=== PATIENT | female | born 1965 | race Caucasian/White ===

== ENCOUNTER 2018-05-19 14:42 | Inpatient (IN) | payer MEDICARE, MEDICAID, SELFPAY ==
[2018-04-27 10:30] VITALS: BMI 38.0
[2018-05-18] VITALS (15 sets, daily range): BP systolic 101–140; BP diastolic 51–82; PULSE 70–97; RESP 7–92; TEMP 35.7–37.4; O2SAT 12–98; BMI 38.0
[2018-05-18] MEDS: LACTATED RINGERS 1,000 ML 42 ML IV ×2 (11:56→16:12)
[2018-05-18] MEDS: ACETAMINOPHEN 325 MG TABLET 975 MG PO ×2 (12:15→22:46)
[2018-05-18] MEDS: PREGABALIN 75 MG CAPSULE PO (12:15)
[2018-05-18] MEDS: CELECOXIB 200 MG CAPSULE PO (12:15)
--- NOTE | 2018-05-18 12:30 | SUR.PREOP ---
Pt. has as Foundry Technician ([facility]) ELMIRA MENDEZ, [facility] [phone]
--- NOTE | 2018-05-18 13:00 | DI.RAD.S_ITS ---
PROCEDURE: XR KNEE LT 1TO2V INDICATIONS: LEFT REVISION KNEE TECHNIQUE: 4 views of the knee acquired. COMPARISON: [facility], CT, CT KNEE LEFT WITHOUT CONTRAST, 04/19/2018, 9:53. [facility], CR, XR KNEE ARTHRITIC SERIES LT, 04/05/2018, 8:56. FINDINGS: Bones: Patient is status post knee joint arthroplasty revision with new long stem femoral and tibial components. Hardware components are in expected positions. There are healing fractures of the medial femoral condyle and proximal medial tibia. Soft tissues: Overlying postoperative changes are noted. IMPRESSION: 1. Postsurgical changes status post left knee arthroplasty revision. 2. Healing fractures of the medial distal femur and proximal tibia Dictated by: Mario King M.D. on 05/18/2018 at 23:42 Approved by: Mario King M.D. on 05/18/2018 at 23:44
[2018-05-18] MEDS: VANCOMYCIN 1,000 MG/200 ML FROZ.PIGGY 200 MG IV (14:20)
--- NOTE | 2018-05-18 14:23 | PM.PREOP ---
Pre-operative Note Interval Note Pre-op Check: Yes History & Physical Reviewed by Physician and Yes Exam Performed Changes: No
--- NOTE | 2018-05-18 14:26 | P.OP_ITS ---
Operative Date/Time/Diagnoses Date of procedure: 05/18/18 Time of procedure: 17:47 Pre-op diagnosis: Medial condyle fracture with loosening of femoral component right knee Post-op diagnosis: same Procedure & Clinicians Procedure: Right total knee revision Indications: The patient presents today for revision total knee arthroplasty. Patient sustained a medial condyle fracture which was initially treated conservative. She was doing better and appeared to be healing but now appears to have a loose femoral component. The tibial component appears intact. The plan is to do a revision of the femoral component. The patient does understand complete revision may be necessary. Preoperative studies showed no indication of infection. The nature of the procedure including the risks and benefits, alternatives, postoperative course and expected outcome were discussed and all questions answered. Consent was obtained. Operative site confirmed and marked. Surgeon: Mario Pollock Account Financial Manager: Gabby Lauren Anesthesia Type: General, Spinal and Local Operative Notes Findings: The femoral component was grossly loose. There was almost no bone loss laterally or centrally. There was moderate bone loss medially. The cortical shell of the medial femoral condyle was grossly in place but did have some motion and was not fully healed. There was a little bit of motion of this cortical shell as the knee was placed through flexion extension. There was not really room for any internal fixation of the fragment due to the femoral prosthesis and stem. I felt like with the stem and excellent central and lateral bone that would provide enough fixation. There was no evidence of infection. No evidence of any loosening of the tibial component. Closure Type: primary Specimen(s): other (Femoral component. Cultures.) Implants & Drains: Legion revision system with 5 femoral component with 190 mm stem. 5 mm posterior augment on the lateral side and 15 mm distal augments on the medial side. 13 mm constrained polyethylene tray. Medium Hemovac drain. Applied: drain(s) and implant(s) Estimated Blood Loss (mL): 25 Tourniquet time (min): 125 Procedure in detail: The patient was taken the operative suite and placed under general and spinal anesthesia. She was given 1 g of vancomycin prior to surgery. The leg was prepped and draped in usual sterile fashion. The initial anterior medial incision was utilized. Electrocautery was used through the subcutaneous tissue. A medial parapatellar arthrotomy was made. There is just a slight amount of normal appearing clear yellow fluid within the knee. No evidence of infection. The femoral component was in varus and grossly loose and easily remove. The polyethylene tray was removed. Some of the medial posterior condyle did come off with the femoral component. The lateral and central bone was in excellent condition with no real loss. The bone quality was good. Sequential reaming was carried out to a 14 stem. A 6 degree valgus guide was placed in the distal cut made which was just a cleanup cut laterally and cut with a 15 mm augment on the medial side. The femur was sized to a size 5. The cutting block was placed and it was cut for a 5 mm posterior augment on the lateral side. There was no bone to cut posteriorly on the medial side. The anterior chamber and anterior cut were also made. Trial component was placed. The knee was initially tight medially but a fairly extensive release was performed. The knee came into full extension and had good overall stability in flexion and extension with a 13 mm constrained implant. There was some increase laxity laterally versus medially even after release. The knee was cleansed with Pulsavac irrigation and prepared for cementing. The final implant was cemented into place and held in extension until the cement fully cured. When the knee was then ranged could be seeing that the mom that the medial cortical shell from the previous condylar fracture on did move a few mm on flexion extension. This was really not adding any support to the implant. I did not see any way to really fix the bone as it was quite thin and there is really no where to put screws across the femur with the femoral implant and stem. The final 13 mm constrained implant was placed. The knee was then cleansed with Pulsavac irrigation. The knee was injected with a combination of Marcaine and Exparel' extensor mechanism was closed with interrupted 1. Vicryl sutures. A Hemovac drain was placed deep. Subcutaneous tissue was closed with 2 Vicryl. The skin was closed with deon and surgical adhesive. A large Aquacel dressing and Andrea wrap was applied. The patient tolerated procedure well returned to the recovery room in good condition. Complications: none Condition: stable Disposition: PACU Plan for aftercare: I will have the patient be partial weight-bearing bearing just about 50% weight on the left leg for the 1st 6 weeks after surgery. She will begin aggressive range of motion exercises. Will continue vancomycin until cultures negative.
[2018-05-18] MEDS: CEFAZOLIN 2 GM/100 ML FROZ.PIGGY IV (15:00)
--- NOTE | 2018-05-18 15:28 | SUR.OPER ---
Supine on padded OR bed. Pillow under head, arms secured on padded armboards <90 degree abduction. Safety belt across torso. Non-operative leg secured with tape over blanket over lower leg. Operative leg secured in Jerome positioner. Foam padded brace at thigh of operative leg.
[2018-05-18] MEDS: BUPIVACAINE 0.5% W/ EPI (PF) 20 ML, BUPIVACAINE LIPOSOME 266 MG, SODIUM CHLORIDE 0.9% 8... INJ (15:39)
[2018-05-18] MEDS: POVIDONE-IODINE 15 ML, SODIUM CHLORIDE 0.9% 250 ML TOP (15:40)
[2018-05-18] MEDS: BUPIVACAINE 0.5% W/ EPI (PF) 10 ML, TRANEXAMIC ACID 1,000 MG, SODIUM CHLORIDE 0.9% 20 ML INJ (15:40)
--- NOTE | 2018-05-18 15:49 | SUR.OPER ---
MICROBIOLOGY LAB ORDER: LEFT KNEE JOINT FLUID FOR CULTURE, AEROBIC, ANAEROBIC, GRAM STAIN X2 CULTURE TUBES
--- NOTE | 2018-05-18 18:40 | SUR.PHASEI ---
TOTAL IV FLUIDS 1500ML LR WHILE IN OR AND PACU
[2018-05-18] MEDS: LACTATED RINGERS 1,000 ML 125 ML IV (20:00)
[2018-05-18 20:17] LABS: Estimated Glomerular Filt Rate > 60.0 mL/min (>60)
[2018-05-18] MEDS: MELOXICAM 7.5 MG TABLET PO (22:47)
--- NOTE | 2018-05-18 23:01 | PC.NURSE ---
Evening Shift Note Pt arrived to floor at 1905. Pt very drowsy and responsive to touch and verbal stimuli, reminded to cough and deep breath. RR 11, 93% on 2L NC, pt w/ episodes of apnea and shallow breathing. Pt was put on home CPAP w/ 4L of oxygen bled in. O2 sats 95%, RR 12 on CPAP w/ 4L, currently on 4L NC and 95%. Pt sleepy through most of shift and falling asleep mid sentence. Awoken at 2200 and expressed desire to void, unable to do so and bladder scnaned w/ volume of 815. Pt straight cathed and 800ml produced. Pt requesting pain medication, scheduled Tylenol and meloxican given. Other meds where not given earlier in shift d/t to sedating effects and pt unable to stay wake long enough to safely take oral medications w/o compromising airway. Pt fell asleep during straight cath and after oral medications given. Tolerating sips of water.
[2018-05-19] VITALS (7 sets, daily range): BP systolic 131–161; BP diastolic 71–91; PULSE 69–91; RESP 18–20; TEMP 36.6–36.8; O2SAT 93–96
--- NOTE | 2018-05-19 00:35 | PC.NURSE ---
Pt. still very drowsy, but roused with verbal & tactile stimuli. Denies any pain, 4 liters 95%, refused to wear her CPAP. Will monitor.
[2018-05-19] MEDS: VANCOMYCIN 1,000 MG/200 ML FROZ.PIGGY 200 MG IV ×2 (02:28→13:53)
--- NOTE | 2018-05-19 02:33 | PC.NURSE ---
0230 Pt. refused to used the bed johnson or get OOB to the B[facility]. Bladder scanned done only 52 ml noted, denies any pain. SPO2 in 4 liters 98%, turned 02 down to 2 liters & SPO2 94%. Still very sleepy, will monitor.
[2018-05-19] MEDS: OXYCODONE IR 5 MG TABLET PO ×5 (04:06→14:21)
--- NOTE | 2018-05-19 04:21 | PC.NURSE ---
Pt. awake now C/O pain medicated with 5 mg. of Percolone. Also requested to place Fentanyl Patch night pharmacy does not have Fentanyl 100 mcg. Called night pharmacist & requested to changed the Fentanyl patch to 50 mcg patch x3. Will implement order once order is changed & monitor.
[2018-05-19] MEDS: fentaNYL 50 MCG/PATCH 150 MCG TOP (04:35)
[2018-05-19] MEDS: LACTATED RINGERS 1,000 ML 125 ML IV (05:05)
[2018-05-19 05:52] LABS: Hematocrit 40.5 % (36-46); Hemoglobin 13.4 g/dL (12.0-16.0)
[2018-05-19] MEDS: HYDROMORPHONE 2 MG TABLET PO ×4 (07:51→23:06)
[2018-05-19] MEDS: risperiDONE 1 MG TABLET 2 MG PO ×2 (08:00→20:07)
[2018-05-19] MEDS: LORazepam 1 MG TABLET PO ×3 (08:00→18:35)
[2018-05-19] MEDS: DULOXETINE 30 MG CAPSULE 60 MG PO ×2 (08:04→20:06)
[2018-05-19] MEDS: hydroCHLOROthiazide 12.5 MG CAPSULE PO (08:04)
[2018-05-19] MEDS: ASPIRIN EC 81 MG TABLET PO ×2 (08:04→20:06)
[2018-05-19] MEDS: CHOLECALCIFEROL (VITAMIN D3) 5,000 UNIT TABLET 5000 UNIT PO (08:04)
--- NOTE | 2018-05-19 08:36 | PM.PNPO.1 ---
Subjective Date Patient Seen: 05/19/18 Time Patient Seen: 08:36 Interval history: The patient reports satisfactory pain control. She does complain of her forearms ?jumping? and is expressing significant anxiety. Nursing has just given her her Ativan. Exam Vital Signs (past 8 hours): - 05/19/18 04:00 05/19/18 07:45 05/19/18 08:33 Temperature 98.1 F 97.9 F Pulse Rate 77 77 Respiratory Rate 18 20 Blood Pressure 131/76 145/73 H Pulse Oximetry 95 96 93 Oxygen Delivery Method Room Air Oxygen Flow Rate 2 Narrative Exam Narrative: Right knee wound is dressed with no drainage on the bandage. Calf is soft. Light touch and motion are intact. Objective Labs Result Diagrams: 05/19/18 05:13 05/18/18 20:05 Labs: Laboratory Results - last 24 hr 05/18/18 05/19/18 20:05 05:13 Hgb 13.4 Hct 40.5 Creatinine 0.70 Estimated GFR > 60.0 Assessment & Plan Post-op Postoperative Procedures Operation Date: 05/18/18 13:00 Actual Procedures Side Surgeon p Total Knee Arthroplasty Revision Left Mario Pollock MD Postoperative day: 1 Postoperative status: doing well and other (anxiety disorder) Postoperative status narrative: From a surgical standpoint the patient is stable and doing well postoperative day 1 status post revision right total knee replacement. She is suffering from her preoperatively diagnosed anxiety disorder. She also may be having some nicotine withdrawal symptoms. Postoperative plan: routine post-op care and other Postoperative plan narrative: We will initiate physical therapy. We will continue her preoperative antianxiety medications. We will write an order for nicotine patch. We will assess her progress with physical therapy tomorrow and discharge her when she is safe for her home environment. Time Spent With Patient less than 15 minutes Quality VTE Deep Vein Thrombosis/Pulmonary Embolism Present on Admission: No
[2018-05-19] MEDS: NICOTINE 14 PATCH 14 MG TOP (08:55)
--- NOTE | 2018-05-19 09:00 | PT.IIE ---
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, initial encounter (05/18/18) Surgery Performed Operation Date: 05/18/18 13:00 Actual Procedures p Total Knee Arthroplasty Revision(Left) - Mario Pollock MD Surgical History (Last Updated 04/27/18 @ 11:26 by Tessa Sheppard RN) History of cholecystectomy (Acute) History of hernia repair (Acute) History of lateral meniscus repair of left knee (Acute) History of neck surgery (Acute ~2003) History of open reduction and internal fixation (ORIF) procedure (Acute) Medical History (Last Updated 04/27/18 @ 11:01 by Tessa Sheppard RN) Anxiety (Acute) Arthritis (Acute) Bipolar disorder (Acute) Chronic pain (Acute) DJD (degenerative joint disease) (Acute) Depression (Acute) Failed total left knee replacement (Acute) Fibromyalgia (Acute) Herniated disc (Acute) History of hysterectomy (Acute) History of migraine (Acute) Hyperlipidemia (Acute) Hypertension (Acute) Impaired vision (Acute) Incontinence (Acute) Mixed sleep apnea (Acute) Morbid obesity with BMI of 40.0-44.9, adult (Acute) Nocturnal hypoxemia (Acute) Numbness (Acute) Pain (Acute) 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 (Acute) Postmenopausal (Acute) Weakness (Acute) Physical Therapy Inpatient Evaluation/Re-Eval M1 PT/OT-IP Prior Functional Status Start: 05/19/18 11:05 Freq: NEEDED Status: Active Protocol: Document 05/19/18 09:00 AB (Rec: 05/19/18 11:26 AB [id number]) Medical Review Prior Functional Status Medical History Reviewed Yes Communication able to make needs known Mobility and Gait staed that she is mod independent with all mobilities and ambulation using FWW Social History Household Members other Living Arrangements House Number of Floors (Floors) One Floor Number of Stairs To Enter/Railing? no steps to enter Home Environment Standard Height Toilet Tub/Shower Home Equipment Front Wheel Walker Straight Cane Grab Bars In Shower Employment Status Retired Additional Social History Comment stated that she lives with a roommate that can assist her 24/7 M2 PT-IP Current Condition Start: 05/19/18 11:05 Freq: NEEDED Status: Active Protocol: Document 05/19/18 09:00 AB (Rec: 05/19/18 11:26 AB [id number]) Physical Therapy Current Condition Current Condition Evaluation Date 05/19/18 Treatment Diagnosis s/p L TKA revision Onset Date 05/18/18 Weight Bearing Status Weight Bearing Status Partial Weight Bearing Allowed Weight Bearing Amount (enter % per doctor's order: PWB 50% or #) (%) LLE M3 PT-IP Subjective Start: 05/19/18 11:05 Freq: NEEDED Status: Active Protocol: Document 05/19/18 09:00 AB (Rec: 05/19/18 11:26 AB [id number]) Subjective Physical Therapy Visit Type Type Initial Evaluation Visit Start Time 09:00 Visit Stop Time 09:29 Total Visit Minutes 29 Number of CORRECTION OFFICER SUPERVISOR Visits 0 Physical Therapy Visit Comments Patient Comments when ask about home set up. pt stated you keep asking me questions that i don't. Therapy Pain Assessment Pain When Pain Assessed At Rest Pain Present Pain Present Pain Reported Location Left Knee Intensity 10 Scale Used Numeric (1 - 10) Pain Management Techniques Timing of Activity with Medications M4 PT-IP Mobility and Gait Start: 05/19/18 11:05 Freq: NEEDED Status: Active Protocol: Document 05/19/18 09:00 AB (Rec: 05/19/18 11:26 AB [id number]) PT-Bed Mobility Assessment Supine to Sit Supine to Sit Standby Assistance Sit to Supine Sit to Supine Standby Assistance Scooting Scooting to Edge of Bed Standby Assistance Scooting Up and Down in Bed Standby Assistance PT-Transfer Assessment Sit to and From Stand Sit to and from Stand Contact Guard Assistance Use of Upper Extremities Equipment Transfer Assistive Device Gait Belt Front Wheeled Walker Orthotic/Prosthetic Devices or Brace: No Transfers Transfer Destination Chair Bedside Commode Transfer Technique pt ambulated from chair to bedside commode Transfer Ability Level of Assist Contact Guard Assistance Minimal Assistance Use of Upper Extremities Comments Mobility Comments pt educated on weight bearing precaution of 50% on LLE. pt expressed understanding but when asked to get up and ambulate using FWW, pt is not able to maintain weight bearing restriction. pt is very impulsive and directs her own care; gets frustrated when reminded/corrected to maintain weight bearing restriction. Gait Assessment Gait Gait Assistance Required: Contact Guard Assist Minimum Assistance Distance (Feet) 20 Able to Maintain Weight Bearing Status No During Gait Assistive Devices Assistive Device Gait Belt Front Wheeled Walker Orthotic/Prosthetic Devices or Brace: No Factors Limiting Gait Function Factors Limiting Gait Function Decreased Activity Tolerance Difficulty Following Directions Limited Range of Motion Pain Poor Balance Poor Safety Awareness Comments Gait Comments pt unable to maintain weight bearing restriction of 50% on LLE and requires constant cues but pt gets frustrated when corrected. PT-Balance Assessment Sitting Balance and Reactions Static Sitting Balance Ability Good Dynamic Sitting Balance Ability Good Standing Balance and Reactions Static Standing Balance Ability Fair Dynamic Standing Balance Ability Poor Device Used FWW M5 PT-IP Objective Assessments Start: 05/19/18 11:05 Freq: NEEDED Status: Active Protocol: Document 05/19/18 09:00 AB (Rec: 05/19/18 11:26 AB [id number]) Orientation Orientation/Cognition Level of Alertness Alert Orientation Name Safety Awareness Decreased Safety Awareness Memory Description Short Term Impaired Technical Systems Architect Impaired Comments pt with slight confusion Gross Range of Motion Lower Extremity ROM Assessment Left Impaired Impairments decrease R knee flexion Strength Lower Extremity Strength Assessment Left Impaired Knee 3+/5 M6 PT-IP Treatment Start: 05/19/18 11:05 Freq: NEEDED Status: Active Protocol: Document 05/19/18 09:00 AB (Rec: 05/19/18 11:26 AB [id number]) Physical Therapy Treatment Education Education Provided Precautions Weight Bearing Status Post-Op Packet Safety M7 PT-IP Assessment and Plan Start: 05/19/18 11:05 Freq: NEEDED Status: Active Protocol: Document 05/19/18 09:00 AB (Rec: 05/19/18 11:26 [id number]) PT Summary Assessment and Plan Potential Rehabilitation Potential Fair Status of Condition at Evaluation Stable Summary Impairments Pain ROM Strength Balance Cognition Bed Mobility Transfers Gait Activity Tolerance Assessment Summary pt requiring CGA to min A with ambulation using FWW and unable to maintain 50% PWB on LLE. pt directs her own care and despite cues and education provided for weight bearing precaution, pt continues to not follow as instructed. pt stated that her roommate can assist her at home and is available 27/02. if roommate can provide pt necessary assistance, pt may go home when medically stable. Goals Bed Mobility Goal Independent Transfer Goal Standby Assistance Gait Goal Standby Assistance Gait Distance 100 Days to Meet Goals 3 Frequency of Treatment Frequency Of Treatment Twice a Day Treatment Plan Physical Therapy Treatment Plan Bed Mobility Training Transfer Training Gait Training Therapeutic Exercise Balance Retraining Post Op Education Discharge Planning Hot or Cold Pack Neuromuscular Re-ed Coordination Retraining Manual Therapy Recommendations To Nursing Amount of Assist Needed Standby Assistance Discharge Recommendations PT Discharge Recommendations Home with 24/ Assist
--- NOTE | 2018-05-19 12:18 | CM.DANOTE ---
DCP: Case received, EMR reviewed and met with patient. Introduced self and role. DCP template completed with information currently available. Patient is a 53 year old female who admitted yesterday morning to the care of the hospitalist team. PCP:Dr. Patrick. Payer: confirmed: Medicare/Medicaid. Patient came to hospital for a revision of her total knee, arthroplasty. Lives in [facility] with room mates. Patient alert and oriented, and independent at home. DCP to continue to assess. Patient's goals are to return home. Will collaborate with physical therapy as the patient gets closer to discharge. aYsmin Cruz RN/Medical Director Of Hospice
[2018-05-19] MEDS: ACETAMINOPHEN 325 MG TABLET 975 MG PO ×2 (14:22→20:05)
--- NOTE | 2018-05-19 14:41 | PC.NURSE ---
Day Shift/Fall Risk/Restlessness: Patient having increased pain this shift despite pain medication. Patient very restless getting up and down to bed/chair every 10 minutes at times. Patient impulsive and jumps up to go to the bathroom or sit in the chair. Patient told many times about using call light for assistance. This RN and patient health care law specialist Jayda Ventura discussed with patient about fall risk and safety. Patient has called at times for more water or juice but gets up quickly without warning to use restroom. Patient going to the bathroom a lot and cannot wait to go. Patient pain medications reviewed by Dr. Mcdonald this shift via phone and new orders received. Patient complaining of restlessness and feeling agitated. Ativan every 6 hours ordered with some relief but patient still feeling on edge. If patient can relax she was able to rest for 1 hour mid-shift after second dose of ativan. vital signs stable, will continue to monitor.
--- NOTE | 2018-05-19 15:00 | PT.IPTN ---
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, initial encounter (05/18/18) Surgery Performed Operation Date: 05/18/18 13:00 Actual Procedures p Total Knee Arthroplasty Revision(Left) - Mario Pollock MD Physical Therapy Treatment Note M2 PT-IP Current Condition Start: 05/19/18 11:05 Freq: NEEDED Status: Active Protocol: Document 05/19/18 09:00 AB (Rec: 05/19/18 11:26 AB [id number]) Physical Therapy Current Condition Current Condition Evaluation Date 05/19/18 Treatment Diagnosis s/p L TKA revision Onset Date 05/18/18 Weight Bearing Status Weight Bearing Status Partial Weight Bearing Allowed Weight Bearing Amount (enter % per doctor's order: PWB 50% or #) (%) LLE M3 PT-IP Subjective Start: 05/19/18 11:05 Freq: NEEDED Status: Active Protocol: Document 05/19/18 15:00 GGD (Rec: 05/19/18 15:55 GGD [email or web address]) Subjective Physical Therapy Visit Type Type Treatment Note Visit Start Time 14:35 Visit Stop Time 15:00 Total Visit Minutes 25 Number of BILLBOARD INSTALLER Visits 1 Physical Therapy Visit Comments Patient Comments Pt states her knee hurts. Therapy Pain Assessment Pain When Pain Assessed At Rest Pain Present Pain Present Pain Reported Location Left Knee Intensity 9 Pain Behaviors Crying Holding Area Moaning Restlessness Pain Management Techniques Apply Cold Re-positioning Timing of Activity with Medications M4 PT-IP Mobility and Gait Start: 05/19/18 11:05 Freq: NEEDED Status: Active Protocol: Document 05/19/18 15:00 GGD (Rec: 05/19/18 15:55 GGD [email or web address]) PT-Bed Mobility Assessment Supine to Sit Supine to Sit Standby Assistance Sit to Supine Sit to Supine Standby Assistance Scooting Scooting to Edge of Bed Standby Assistance Scooting Up and Down in Bed Standby Assistance PT-Transfer Assessment Sit to and From Stand Sit to and from Stand Contact Guard Assistance Use of Upper Extremities Equipment Transfer Assistive Device Gait Belt Front Wheeled Walker Orthotic/Prosthetic Devices or Brace: No Transfers Transfer Destination Bed Chair Transfer Ability Level of Assist Contact Guard Assistance Minimal Assistance Use of Upper Extremities Gait Assessment Gait Gait Assistance Required: Contact Guard Assist Minimum Assistance Distance (Feet) 40 Able to Maintain Weight Bearing Status Yes During Gait Assistive Devices Assistive Device Gait Belt Front Wheeled Walker Orthotic/Prosthetic Devices or Brace: No Factors Limiting Gait Function Factors Limiting Gait Function Decreased Activity Tolerance Difficulty Following Directions Limited Range of Motion Pain Poor Balance Poor Safety Awareness M5 PT-IP Objective Assessments Start: 05/19/18 11:05 Freq: NEEDED Status: Active Protocol: Document 05/19/18 09:00 AB (Rec: 05/19/18 11:26 AB [id number]) Orientation Orientation/Cognition Level of Alertness Alert Orientation Name Safety Awareness Decreased Safety Awareness Memory Description Short Term Impaired Correction Impaired Comments pt with slight confusion Gross Range of Motion Lower Extremity ROM Assessment Left Impaired Impairments decrease R knee flexion Strength Lower Extremity Strength Assessment Left Impaired Knee 3+/5 M6 PT-IP Treatment Start: 05/19/18 11:05 Freq: NEEDED Status: Active Protocol: Document 05/19/18 15:00 GGD (Rec: 05/19/18 15:55 GGD [email or web address]) Physical Therapy Treatment Exercises Exercises Ankle Pumps Seated Knee Flexion/Extension Education Education Provided Weight Bearing Status Post-Op Packet Safety Other Treatments Other Treatment Performed standing weight shift on scale , Pt only putting 50-60#. Steping off scale, pt able maintain weight bearing precautions. M7 PT-IP Assessment and Plan Start: 05/19/18 11:05 Freq: NEEDED Status: Active Protocol: Document 05/19/18 15:00 GGD (Rec: 05/19/18 15:55 GGD [email or web address]) PT Summary Assessment and Plan Summary Assessment Summary Pt need CGA and mod cues for mobility and safety. She was able to maintain PWB with gait . She is impulsive with transfers and not always maintain weight bearing or safely using FWW. Frequency of Treatment Frequency Of Treatment Twice a Day Treatment Plan Physical Therapy Treatment Plan Bed Mobility Training Transfer Training Gait Training Therapeutic Exercise Balance Retraining Post Op Education Discharge Planning Hot or Cold Pack Neuromuscular Re-ed Coordination Retraining Manual Therapy Recommendations To Nursing Amount of Assist Needed Standby Assistance Discharge Recommendations PT Discharge Recommendations Home with 24/7 Assist
--- NOTE | 2018-05-19 15:58 | PC.NURSE ---
Pt up in recliner @ beginning of shift. Chair alarm sounds and when staff attend, pt requests walker to transfer back into bed. Steady gait with standby assistance. Reports intact sensation to BL LE's. Hemovac drain intact with dolly wrap to left knee. Admits to 7/10 pain to left knee sharp in nature. Po dilaudid provided as well as ice to knee. Will monitor for improvement in pain. Pt states pain goal 5/10.
--- NOTE | 2018-05-19 18:27 | PC.NURSE ---
Pt restless. In bed, sitting at edge of bed, standing at side of bed. Requesting assistance to toilet and ambulate. These requests were accommodated by staff. Ice to left knee as pt will stay still enough for this treatment to be effective. Medicated pt for pain/restlessness as per emar. Pt expresses concern whether able to wait 3 hours for pain medications. Agreed to administered meds 20 minutes early. See emar for documentation.
[2018-05-19] MEDS: HYDROMORPHONE 1 MG INJ 0.5 MG IV ×2 (19:10→21:10)
--- NOTE | 2018-05-19 19:23 | PC.NURSE ---
Pt tearful, restless, reports no relief from oral pain meds. This greeting card writer's decision not to combine various multiple narcotics so administered 0.5 mg iv dilaudid. Encouraged rest.
[2018-05-19] MEDS: lamoTRIgine 100 MG TABLET PO (20:06)
[2018-05-19] MEDS: SIMVASTATIN 40 MG TABLET PO (20:08)
[2018-05-19] MEDS: SODIUM CHLORIDE 0.9% FLUSH 10 ML IV (20:08)
--- NOTE | 2018-05-19 22:11 | PC.NURSE ---
Pt has repeatedly utilized call light to request pain meds. Frequently up to bathroom with standby assistance to void. Refuses bedside commode and is able to move self in and out of bed without difficulty. Cpap has been set up by RAmberlyTAmberly and provided to pt. Pt now with eyes closed resting quietly in bed without signs of distress or discomfort. No change in neurovascular status this evening shift.
[2018-05-20 00:35] VITALS: BP 150/79; PULSE 87; RESP 24; TEMP 36.6; O2SAT 93
[2018-05-20] MEDS: LORazepam 1 MG TABLET PO ×2 (00:54→13:24)
[2018-05-20] MEDS: HYDROMORPHONE 2 MG TABLET PO ×2 (02:01→05:18)
--- NOTE | 2018-05-20 02:16 | PC.NURSE ---
shift note When doing initial physical assessment on pt, this check writer observed hemovac lying next to patient as she got up to go to the bathroom. 28cc in hemovac. Notified charge account clerk. Cleaned site and placed gauze and tegaderm over. Pt also reports pain 7/10 despite being able to sleep soundly as this check writer enter room. Pt appeared comfortable and relaxed in bed. Provided PRN dilaudid PO mg as ordered. Pt has since been appeared asleep in bed. Call light in reach.
[2018-05-20 02:30] LABS: Vancomycin Trough < 5.0 ug/mL (10-20)
[2018-05-20] MEDS: VANCOMYCIN 1,000 MG/200 ML FROZ.PIGGY 200 MG IV (02:49)
[2018-05-20] MEDS: VANCOMYCIN TROUGH 1 REQUEST MISC (03:10)
[2018-05-20 03:18] VITALS: BP 148/59; PULSE 90; RESP 18; TEMP 36.8; O2SAT 95
[2018-05-20] MEDS: OXYCODONE IR 5 MG TABLET PO (05:49)
[2018-05-20 07:35] VITALS: BP 145/86; PULSE 96; RESP 20; TEMP 36.8; O2SAT 92
[2018-05-20] MEDS: risperiDONE 1 MG TABLET 2 MG PO (09:03)
[2018-05-20] MEDS: DULOXETINE 30 MG CAPSULE 60 MG PO (09:03)
[2018-05-20] MEDS: NICOTINE 14 PATCH 14 MG TOP (09:04)
[2018-05-20] MEDS: ACETAMINOPHEN 325 MG TABLET 975 MG PO ×2 (09:04→14:49)
[2018-05-20] MEDS: MELOXICAM 7.5 MG TABLET PO (09:04)
[2018-05-20] MEDS: hydroCHLOROthiazide 12.5 MG CAPSULE PO (09:04)
[2018-05-20] MEDS: CHOLECALCIFEROL (VITAMIN D3) 5,000 UNIT TABLET 5000 UNIT PO (09:04)
[2018-05-20] MEDS: ASPIRIN EC 81 MG TABLET PO (09:04)
[2018-05-20] MEDS: SODIUM CHLORIDE 0.9% FLUSH 10 ML IV (09:05)
--- NOTE | 2018-05-20 09:52 | PM.DS.1 ---
History of Present Illness Date Patient Seen: 05/20/18 Time Patient Seen: 09:52 Chief complaint: revision of total kne arthroplasty [id number] Narrative: The history and physical for this patient is contained in a completed note in the chart. Please refer to that note for this information. Discharge Providers Date of admission: 05/18/18 10:41 Consults: 04/27/18 11:44 Consult to Respiratory Therapy Evaluate & Treat Comment: Will bring CPAP, resumed smoking Physician Instructions: Evaluate and treat Consult to Wind Up Worker Routine Comment: 05/18/18 12:07 Consult to Anesthesiology Routine Comment: Consulting Provider: Anesthesiologist Reason for consultation: Regional block for post operative pain control 05/18/18 19:19 Consult to Discharge Planning Routine Comment: Consult to Physical Therapy Evaluate & Treat Comment: Physician Instructions: postop TKA protocol Consult to Respiratory Therapy Evaluate & Treat Comment: Physician Instructions: Evaluate and treat Discharge provider: Duane Mcdonald MD Discharge Date: 05/20/18 Summary Discharge Diagnosis: 1. Loosening of prosthesis, right total knee 2. Femoral condyle fracture, right femur 3. Generalized anxiety disorder Hospital Course: The patient was admitted to the hospital and taken directly to the operating room May 18, 2018. She underwent a revision right total knee replacement which went well. Her postoperative course was marked by significant anxiety and poor pain control. On postoperative day 2 she strongly requested to be discharged home. At the time of this dictation, the plan is for her to go home if she makes satisfactory progress with physical therapy today. Status at Discharge Cognitive/behavioral status at discharge: At baseline with significant anxiety. Functional status at discharge: uses cane/walker Overall status at discharge: patient is progressing back to baseline Time Spent with Patient Less than 30 minutes Exam Vital Signs (past 8 hours): - 05/20/18 03:18 05/20/18 07:35 Temperature 98.2 F 98.3 F Pulse Rate 90 96 H Respiratory Rate 18 20 Blood Pressure 148/59 H 145/86 H Pulse Oximetry 95 92 Oxygen Delivery Method Room Air Oxygen Flow Rate 2 Narrative Exam Narrative: Right knee wound is dressed with no significant drainage on the bandage. Calf is soft. Light touch and motion are intact in the right lower extremity. Objective Labs Result Diagrams: 05/19/18 05:13 05/18/18 20:05 Labs: Laboratory Results - last 24 hr 05/20/18 01:59 Vancomycin Trough < 5.0 L Discharge Plan Discharge Plan Patient Disposition: Home Discharge Med Rec/Prescriptions Prescriptions: New aspirin 81 mg Tablet,Delayed Release (Dr/Ec) 81 mg PO BID 42 Days Qty: 84 RF: 0 oxycodone 5 mg Tablet 10 mg PO Q3HR PRN (Reason: Pain, Moderate (4-6)) Qty: 40 RF: 0 Continue albuterol sulfate [Ventolin HFA] 90 MCG/PUFF HFA aerosol inhaler 2 puff INH PRN PRN (Reason: Wheezing) Qty: 0 RF: 0 lamotrigine [Lamictal] 100 MG tablet 100 mg PO BEDTIME Qty: 0 RF: 0 risperidone [Risperdal] 2 MG tablet 2 mg PO BID Qty: 0 RF: 0 duloxetine 60 MG capsule,delayed release(DR/EC) 60 mg PO BID Qty: 0 RF: 0 meloxicam [Mobic] 7.5 MG tablet 7.5 mg PO QDAY Qty: 60 RF: 0 fentanyl 50 mcg/hr Patch 72 Hour 1 patch TRANSDERMAL Q72H RF: 0 simvastatin 40 mg Tablet 40 mg PO BEDTIME RF: 0 fentanyl 100 mcg/hr Patch 72 Hour 1 patch TRANSDERMAL Q72H RF: 0 ranitidine HCl 150 mg Tablet 150 mg PO BID RF: 0 promethazine 25 mg Tablet 25 mg PO Q8H PRN (Reason: Nausea) RF: 0 hydroxyzine pamoate 25 mg Capsule 25 mg PO Q8H PRN (Reason: Itching) RF: 0 oxycodone-acetaminophen 10-325 mg Tablet 1 tab PO Q6H PRN (Reason: Pain) RF: 0 lorazepam 1 mg Tablet 1 mg PO BID RF: 0 hydrochlorothiazide 12.5 mg Tablet 12.5 mg PO DAILY RF: 0 cholecalciferol (vitamin D3) [Vitamin D3] 5,000 unit Tablet 5,000 unit PO DAILY RF: 0 Provider Discharge Instructions Diet: Diet as Tolerated and Regular Activity: You may get up as tolerated. Cold/Heat Therapy: Apply ice to the right knee for 15 min of every hour as needed. Skin/Wound/Dressing Care Report to your healthcare provider any signs of infection, such as:: chills, fever, night sweats, increased pain and unusual drainage Dressing: You may remove the Andrea wrap 3 days after surgery. Keep the deeper dressing in place. You may shower with that dressing in place. Please call our office if the central strip of the deep dressing is saturated with either water or blood. Discharge Data Attending Provider: Mario Pollock Admit Date/Time: 05/18/18 10:41 Quality VTE Deep Vein Thrombosis/Pulmonary Embolism Present on Admission: No
[2018-05-20 11:35] VITALS: BP 117/49; PULSE 102; RESP 17; TEMP 37; O2SAT 95
[2018-05-20] MEDS: OXYCODONE IR 5 MG TABLET 10 MG PO ×2 (11:59→14:49)
--- NOTE | 2018-05-20 12:39 | PT.IPTN ---
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, initial encounter (05/18/18) Surgery Performed Operation Date: 05/18/18 13:00 Actual Procedures p Total Knee Arthroplasty Revision(Left) - Mario Pollock MD Physical Therapy Treatment Note M2 PT-IP Current Condition Start: 05/19/18 11:05 Freq: NEEDED Status: Active Protocol: Document 05/19/18 09:00 AB (Rec: 05/19/18 11:26 AB [id number]) Physical Therapy Current Condition Current Condition Evaluation Date 05/19/18 Treatment Diagnosis s/p L TKA revision Onset Date 05/18/18 Weight Bearing Status Weight Bearing Status Partial Weight Bearing Allowed Weight Bearing Amount (enter % per doctor's order: PWB 50% or #) (%) LLE M3 PT-IP Subjective Start: 05/19/18 11:05 Freq: NEEDED Status: Active Protocol: Document 05/20/18 11:50 CLB (Rec: 05/20/18 12:39 CLB [id number]) Subjective Physical Therapy Visit Type Type Treatment Note Visit Start Time 11:50 Visit Stop Time 12:05 Total Visit Minutes 15 Number of RESIDENTIAL DESIGNER Visits 2 Physical Therapy Visit Comments Patient Comments Pt states she wants to go home because they aren't giving her enough pain medication. Therapy Pain Assessment Pain When Pain Assessed At Rest Pain Present Pain Present Pain Reported Location Left Knee Intensity 8 Scale Used Numeric (1 - 10) Pain Management Techniques Apply Cold Re-positioning Timing of Activity with Medications M4 PT-IP Mobility and Gait Start: 05/19/18 11:05 Freq: NEEDED Status: Active Protocol: Document 05/20/18 11:50 CLB (Rec: 05/20/18 12:39 CLB [id number]) PT-Bed Mobility Assessment Supine to Sit Supine to Sit Standby Assistance Sit to Supine Sit to Supine Standby Assistance Scooting Scooting to Edge of Bed Standby Assistance Scooting Up and Down in Bed Standby Assistance PT-Transfer Assessment Sit to and From Stand Sit to and from Stand Contact Guard Assistance Use of Upper Extremities Equipment Transfer Assistive Device Gait Belt Front Wheeled Walker Orthotic/Prosthetic Devices or Brace: No Transfers Transfer Destination Bed Toilet Transfer Ability Level of Assist Contact Guard Assistance Comments Mobility Comments Pt improving with bed mobility . Gait Assessment Gait Gait Assistance Required: Contact Guard Assist Minimum Assistance Distance (Feet) 20 Able to Maintain Weight Bearing Status Yes During Gait Assistive Devices Assistive Device Gait Belt Front Wheeled Walker Orthotic/Prosthetic Devices or Brace: No Factors Limiting Gait Function Factors Limiting Gait Function Decreased Activity Tolerance Difficulty Following Directions Limited Range of Motion Pain Poor Balance Poor Safety Awareness Comments Gait Comments Pt is unable to maintain weight bearing restrictions of 50% on LLE even after going over precaution before getting OOB and during ambuation to the bathroom. Stair Climbing Assessment Comments Stair Climbing Comments Pt has no stairs M5 PT-IP Objective Assessments Start: 05/19/18 11:05 Freq: NEEDED Status: Active Protocol: Document 05/19/18 09:00 AB (Rec: 05/19/18 11:26 AB [id number]) Orientation Orientation/Cognition Level of Alertness Alert Orientation Name Safety Awareness Decreased Safety Awareness Memory Description Short Term Impaired Wildlife Biology Internship Impaired Comments pt with slight confusion Gross Range of Motion Lower Extremity ROM Assessment Left Impaired Impairments decrease R knee flexion Strength Lower Extremity Strength Assessment Left Impaired Knee 3+/5 M6 PT-IP Treatment Start: 05/19/18 11:05 Freq: NEEDED Status: Active Protocol: Document 05/19/18 15:00 GGD (Rec: 05/19/18 15:55 GGD [email or web address]) Physical Therapy Treatment Exercises Exercises Ankle Pumps Seated Knee Flexion/Extension Education Education Provided Weight Bearing Status Post-Op Packet Safety Other Treatments Other Treatment Performed standing weight shift on scale , Pt only putting 50-60#. Steping off scale, pt able maintain weight bearing precautions. M7 PT-IP Assessment and Plan Start: 05/19/18 11:05 Freq: NEEDED Status: Active Protocol: Document 05/20/18 11:50 CLB (Rec: 05/20/18 12:39 CLB [id number]) PT Summary Assessment and Plan Summary Assessment Summary Pt BP upon entering room with ICU REGISTERED NURSE 117/49 sitting in bed, after ambulation on EOB 132/ 103 then sitting in bed after a few minutes of rest 145/99. Pt continues to need CGA and mod cuing for following WB restriction of 50%. Pt is impulsive moving very quickly with all mobility. Pt would benefit from another day to continue therapy for PWB status during ambulation for safety. Goals Bed Mobility Goal Independent Transfer Goal Standby Assistance Gait Goal Standby Assistance Gait Distance 100 Days to Meet Goals 3 Frequency of Treatment Frequency Of Treatment Twice a Day Treatment Plan Physical Therapy Treatment Plan Bed Mobility Training Transfer Training Gait Training Therapeutic Exercise Balance Retraining Post Op Education Discharge Planning Hot or Cold Pack Neuromuscular Re-ed Coordination Retraining Manual Therapy Other Recommendations and Next Treatment Gait focusing on PWB Focus Recommendations To Nursing Amount of Assist Needed 1 Person Assist Discharge Recommendations PT Discharge Recommendations Home with 27/02 Assist
--- NOTE | 2018-05-20 13:49 | PC.NURSE ---
Pt ambulating in hallway - PT does not think that pt is ready to be discharged home today but pt firmly states she wants to go home today. Slept most of morning and was roused just before lunch - given pain meds at this time. Pt states I want to go home because I am not being given enough pain meds while I am here. Advised pt that she was medicated with percolone as soon as she was roused. Pt states after lunch: I just want to move around, I am so bored, can someone take me for a ride in the wheelchair? Request was complied with and pt appeared happy and relaxed when returned to her bed. Dressing to right knee dry and intact with shadow drainage at distal end of dressing.
--- NOTE | 2018-05-20 14:30 | CM.DPC ---
DCP Cont: Had spoken to Dr. Mcdonald this morning about discharge. He stated that he did not feel that she was ready to be discharged today, but he put in orders because she was adamet about leaving today. He stated this would depend on how she did with physical therapy. He also stated that he was expecting her not to go home today and would plan on seeing her tomorrow. Physical therapy has worked with patient and feels that she should stay another day. P: DCP to continue to assess. Patient's plan is to go home. Yasmin Cruz RN/Beverage Sales Consultant
--- NOTE | 2018-05-20 15:47 | PC.NURSE ---
Pt requests assistance to sit in wheelchair and wheel self around acute care floor. Pt is discharged and is awaiting ride to home. Informed pt need to stay on acute care floor until ride arrives and pt agrees to this. Aquacel intact to left knee with half dollar size shadowy drainage distally. Informed pt if plans to smoke following discharge from hospital, should remove nicotine patch currently in place. Pt acknowledges understanding and agreement. Discharge instructions given to pt in written and verbal form. Script for oxycodone provided to patient. These essential papers placed in pt's green knee replacement folder and placed inside pt's own bag for transport to home. Pt states is awaiting ride and was encouraged to call when ride arrives for escort to vehicle. No iv access @ this time.
--- NOTE | 2018-05-20 17:22 | PC.NURSE ---
Pt home with friend via wheelchair. Personal belongings accounted for and in pt's possession. Pt left hospital in stable condition accompanied by CMS EXPERT to private vehicle.
== END 2018-05-20 17:22 | disposition home or self-care (01) | DRG 467 ==
LOC: AC 05-20 09:51 → OR 05-21 07:20
PROVIDERS: Admitting Provider Orthopaedic Surgery; Visit Provider Orthopaedic Surgery
DX: M97.11XA Periprosthetic fracture around internal prosthetic right knee joint, initial encounter (principal); S72.431A Displaced fracture of medial condyle of right femur, initial encounter for closed fracture; T84.032A Mechanical loosening of internal right knee prosthetic joint, initial encounter; F41.9 Anxiety disorder, unspecified; I10 Essential (primary) hypertension; F31.9 Bipolar disorder, unspecified; M79.7 Fibromyalgia; G47.33 Obstructive sleep apnea (adult) (pediatric)
CPT/HCPCS: 36415; 73560; 80202; 82565; 85014; 85018; 87070; 87075; 87205; 94760; 97116; 97161; 97530; 99406; C1776; C9290; J0690; J1100; J1170; J2250; J2405; J2704; J3370

== ENCOUNTER → 2020-12-12 15:21 | Outpatient (CLI) | payer MEDICARE, MEDICAID, SELFPAY ==
[2018-05-18 21:59] VITALS: BMI 38.0
[2020-12-12 16:28] LABS: COVID19 -Nasal RAPID Negative (Negative)
== END ==
PROVIDERS: Referring Provider Student in an Organized Health Care Education/Training Program; Visit Provider Student in an Organized Health Care Education/Training Program
DX: Z01.812 Encounter for preprocedural laboratory examination (principal); Z20.822 Contact with and (suspected) exposure to COVID-19
CPT/HCPCS: 87635

== ENCOUNTER 2020-12-14 11:08 | Inpatient (IN) | payer MEDICARE, MEDICAID, SELFPAY ==
[2018-05-18 21:59] VITALS: BMI 38.0
[2020-12-11 08:38] VITALS: BMI 36.1
[2020-12-14] VITALS (17 sets, daily range): BP systolic 92–157; BP diastolic 40–88; PULSE 64–93; RESP 8–20; TEMP 35.8–36.7; O2SAT 89–98; BMI 36.1
[2020-12-14] MEDS: LACTATED RINGERS 1,000 ML 42 ML IV (12:08)
[2020-12-14] MEDS: ACETAMINOPHEN 325 MG TABLET 975 MG PO (12:10)
--- NOTE | 2020-12-14 12:52 | PM.PREOP ---
Pre-operative Note COVID-19 COVID-19 status: Negative Result date/Date tested (Pos, Neg/Pending): 12/12/20 Interval Note History & Physical reviewed/Exam performed by Physician: Yes Changes to H&P: No
--- NOTE | 2020-12-14 12:53 | PM.HP.1 ---
History of Present Illness History of Present Illness Date Patient Seen: 12/14/20 Time Patient Seen: 12:53 Date of Onset of Symptoms: 12/20/16 Chief complaint: OPB Narrative: 55 yo F with chronic back pain and leg pain. Patient failed multiple conservative care. Patient is scheduled for L5-S1 TLIF. Patient History Medical History (Updated 12/11/20 @ 09:19 by Tamika Braxton RN) Anxiety Arthritis Bipolar disorder Chronic pain Depression DJD (degenerative joint disease) Failed total left knee replacement Fibromyalgia GERD (gastroesophageal reflux disease) Herniated disc History of migraine Hyperlipidemia Hypertension Impaired vision Incontinence Mixed sleep apnea Morbid obesity with BMI of 40.0-44.9, adult Nocturnal hypoxemia Numbness [place] on CPAP Pain 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 Postmenopausal Spinal stenosis of lumbar region with radiculopathy Weakness Surgical History (Updated 12/11/20 @ 09:24 by Tamika Braxton RN) History of arthroplasty of left knee (08/02/17) History of cholecystectomy History of hernia repair History of hysterectomy History of lateral meniscus repair of left knee History of neck surgery (~2003) History of open reduction and internal fixation (ORIF) procedure (06/06/17) History of surgery (05/18/18) Hx of fusion of cervical spine S/P epidural steroid injection (11/10/20) Family & Social History Social History: household members none Prior Living Arrangements Apartment/Condo Safety & Behavioral: Feels Safe in Current Yes Environment Been Physically Hurt or No Threatened By a Person Suicidal Ideation Description None Suicide Plan Description No Plan Tobacco & Substance use: Tobacco type cigarettes Smoking Status Current every day smoker Smoking packs per day 0.5 alcohol intake never Substance Use Type does not use Meds Home Medications and Allergies Home Medications Medication Instructions Recorded Confirmed Type albuterol sulfate [Ventolin HFA] 2 puff INH PRN PRN #0 05/11/17 12/14/20 History duloxetine 60 mg PO BID #0 05/11/17 12/14/20 History lamotrigine [Lamictal] 150 mg PO BEDTIME #0 05/11/17 12/14/20 History risperidone [Risperdal] 2 mg PO BID #0 05/11/17 12/14/20 History cholecalciferol (vitamin D3) 5,000 unit PO DAILY 04/27/18 12/14/20 History [Vitamin D3] hydroxyzine pamoate 25 mg PO BEDTIME 04/27/18 12/14/20 History promethazine 25 mg PO Q8H PRN 04/27/18 12/14/20 History simvastatin 40 mg PO BEDTIME 04/27/18 12/14/20 History clonidine HCl 0.2 mg PO BID 12/11/20 12/14/20 History famotidine 20 mg PO BID 12/11/20 12/14/20 History fentanyl 1 patch TRANSDERMAL Q72H 12/11/20 12/14/20 History meloxicam [Mobic] 15 mg PO QDAY 12/11/20 12/14/20 History mirabegron 25 mg PO DAILY 12/11/20 12/14/20 History nicotine 1 patch TRANSDERMAL DAILY 12/11/20 12/11/20 History oxybutynin chloride 10 mg PO DAILY 12/11/20 12/14/20 History oxycodone-acetaminophen 1 tab PO QID PRN 12/11/20 12/14/20 History ropinirole 0.5 mg PO BEDTIME 12/11/20 12/14/20 History solifenacin 10 mg PO DAILY 12/11/20 12/14/20 History valacyclovir [Valtrex] 500 mg PO BID PRN 12/11/20 12/14/20 History Allergies Allergy/AdvReac Type Severity Reaction Status Date / Time codeine [CODEINE] Allergy Severe 'DEATHLY Verified 12/14/20 11:42 SICK' VOMIT, RASH topiramate [From TOPAMAX] Allergy Severe ANAPHYLAXIS Verified 12/14/20 11:42 latex Allergy Unknown Bloody Verified 12/14/20 11:42 Rash, It eats me adhesive tape [ADHESIVE TAPE] AdvReac Severe OLD Verified 12/14/20 11:42 FASHIONED TAPE 'EATS SKIN' sumatriptan [From IMITREX] AdvReac Severe 'REALLY Verified 12/14/20 11:42 SICK, DEATHLY VOMITING' hydrocodone AdvReac Intermediate Nausea & Verified 12/14/20 11:42 Vomiting Exam Vital Signs (past 8 hours): - 12/14/20 11:59 Temperature 98.1 F Pulse Rate 66 Respiratory Rate 14 Blood Pressure 138/71 Pulse Oximetry 95 Oxygen Delivery Method Room Air Back/Spine/Pelvis Other: Painful ROM exam in lumbar spine. Neuro Other: BLE with decreased sensibility in L5 dermatome, + straight leg raise in LLE. Motor strength 4/5 in left EHL. Assessment & Plan Assessment & Plan narrative: Risks and benefits of surgery was discussed. Risks include but not limited to bleeding, infection, nerve/dura/bladder/bowel/blood vessel injury, need for additional procedure, even . Pt understands and would like to proceed with surgery. I scheduled her for L5-S1 TLIF.
[2020-12-14] MEDS: CEFAZOLIN 2 GM/100 ML FROZ.PIGGY IV ×2 (13:13→22:29)
--- NOTE | 2020-12-14 13:52 | SUR.OPER ---
Prone on spine table, head in foam head support, padded chest and pelvic supports, gel pad at knees, lower legs supported by pillows; nipples, genitalia and toes free of pressure, arms secured on foam padded arm boards at <90 degrees abduction. Tape over blanket at thigh secured to table.
--- NOTE | 2020-12-14 13:52 | SUR.OPER ---
DENTURES AND GLASSES IN LABELED BAG TO PACU WITH PATIENT
[2020-12-14] MEDS: BUPIVACAINE 0.25% W/ EPI 30 ML VIAL INJ (14:12)
[2020-12-14] MEDS: BUPIVACAINE LIPOSOME 266 MG/20 ML VIAL INJ (14:13)
--- NOTE | 2020-12-14 15:57 | DI.RAD.S_ITS ---
PROCEDURE: XR LUMBAR SPINE 2-3V INDICATIONS: L5-S1 TLIF TECHNIQUE: 2 views of the lumbar spine were acquired. COMPARISON: None. FINDINGS: Spot fluoroscopic intraoperative views demonstrating L5-S1 posterior spinal fixation hardware and interbody cage graft. IMPRESSION: Expected intraoperative appearance Dictated by: Manuel Allan M.D. on 12/14/2020 at 16:17 Approved by: Manuel Allan M.D. on 12/14/2020 at 16:17
--- NOTE | 2020-12-14 16:03 | PM.OP.1 ---
Operative Date/Time/Diagnoses Date of procedure: 12/14/20 Time of procedure: 14:03 Pre-op diagnosis: 1. L5-S1 spinal stenosis with radiculopathy 2. Lumbar spondylosis with radiculopathy Post-op diagnosis: same Procedure & Clinicians Procedure: 1. L5-S1 Postero-lateral and posterior interbody fusion 2. L5-S1 interbody cage placement. 3. L5-S1 decompressive laminectomy with bilateral facetecomies 4. L5-S1 Posterior non-segmental instrumentation 5. [place] of bone marrow from iliac crest 6. Utilization of microsurgical technique and operating microscope Same procedure as scheduled: Yes Indications: Patient has been having chronic back pain and worsening lumbar radiculopathy. Patient failed multiple conservative management with worsening pain weakness and numbness in her lower extremity. Patient has been having difficulty performing activity of daily living. After discussing risks benefits of treatment options, patient elected proceed with surgery. Surgeon: Tracey Gaytan Supervisor Ski Production: Tre Landry Click Yes if Unassisted: No Operative Notes Closure Type: primary Specimen(s): none sent Prosthetic devices, grafts, tissues, transplants, or devices: Globus revolve screws, Rise cage Estimated Blood Loss (mL): 50 Blood products transfused: none Procedure in detail: Patient was seen in the preoperative area. Risks and benefits of the surgery was discussed with the patient. Informed consent was obtained from the patient and placed in the chart. Surgical site was marked. Patient was taken to the operative room. General anesthesia was administered. Prophylactic antibiotic was given to the patient less than 30 min before the incision was made. Patient was placed into a prone position on the Pedrito table. Patient's back was then prepped and draped in the sterile fashion. Time-out was performed at this time. Using AP and lateral C-arm imaging the interval between L5-S1 was identified and marked on patient's back. A 2 inch incision 2 in from midline was made on the left side first. The fascia was incised in line with skin incision. Globus MARS retractors was placed inside the incision and docked onto the L5 lamina. Using microsurgical technique and operating microscope, a L5 laminectomy and L5-S1 facetectomy was performed using a Kerrison rongeur. Patient was found have severe neural foraminal stenosis and required a total facetectomy for decompression which rendered L5-S1 grossly unstable and required a fusion procedure at the same time. The disc space at L5-S1 was identified. And a total diskectomy was performed at L5-S1 level. The endplates were decorticated using a rasp and shaver. The total diskectomy and decortication was performed at L5-S1 level in order to to accomplish a L5-S1 fusion. The local bone from the laminectomy and facetectomy was saved for local bone grafting. After the total diskectomy and decortication was completed, Trifecta bone graft material was combined with local bone that was harvested earlier. At this time, a separate skin is incision was made over the iliac crest. A Jamshidi needle was inserted into the iliac crest through a separate skin incision. 5 cc of bone marrow aspiration was obtained through the separate skin incision using a Jamshidi needle from the iliac crest. The bone marrow aspiration was combined with local bone and the Trifecta bone grafting material. The bone grafting material was placed into the L5-S1 interbody space along with a expandable cage. The cage was expanded to its maximum height using the torque limiting screwdriver. At this time a mirror image incision was made on the right side. The fascia was incised in line with the skin incision. Globus MARS retractor was inserted and docked onto the L5-S1 posterolateral gutter. Using the power drill, posterior-lateral decortication was performed at L5-S1 level until bleeding cortical bone was identified. The remaining bone grafting material was placed into the L5-S1 posterior lateral gutter he order to accomplish posterolateral fusion at the L5-S1 level. Using the double C-arm technique, pedicle screws were placed into the L5-S1 pedicles bilaterally. This was done by placing the Jamshidi needle into the pedicles, then placing the guidewires over the Jamshidi needle, and finally placing the cannulated screws over the guidewires bilaterally. After the pedicle screws were placed, 2 titanium rods was locked into the heads of the pedicle screws using locking caps and torque limiting screwdriver. After all the hardware was placed, and confirmed with AP and lateral C-arm imaging, the wound was then irrigated with sterile normal saline and packed with Ray-Jeronimo gauze for 3 min to accomplish hemostasis. After the gauze was removed the deep fascia was closed with #1 Vicryl suture. The subcutaneous layer was closed with 2-0 Vicryl. The skin was closed with skin deon. Patient tolerated the procedure well. There were no complications. Complications: none Post-operative Condition: stable Disposition: PACU Plan for aftercare: Admit to inpatient hospital
[2020-12-14] MEDS: OXYCODONE IR 5 MG TABLET 10 MG PO ×3 (16:48→23:56)
[2020-12-14] MEDS: NICOTINE 14 PATCH 14 MG TOP (16:52)
--- NOTE | 2020-12-14 17:36 | RT ---
RT HOME CPAP MACHINE NOTE Pt arrived from PACU, nursing brought patient's home CPAP machine ([facility] had put the unit in a large plastic bag when bringing to hospital). Upon opening machine, I noted mod amts water in bag-PT FORGOT TO EMPTY WATER OUT OF HUMIDIFIER BEFORE PLACING UNIT IN BAG. I showed supervisor steffen house Serene, and patient too. This water leakage puts the unit at risk to break, as water may seep into the guts of the unit. The amout of water was appx 10 cc, by visual estimation. I emptied all water out of the unit, and dried all as best as I could. Unit is layed out in sink to allow drying. Plan is to place on patient tonight.
[2020-12-14] MEDS: SODIUM CHLORIDE 0.9% 1,000 ML 100 ML IV (19:09)
[2020-12-14] MEDS: SENNOSIDES 8.6 MG TABLET 17.2 MG PO (21:15)
[2020-12-14] MEDS: ATORVASTATIN 20 MG TABLET PO (21:17)
[2020-12-14] MEDS: lamoTRIgine 100 MG TABLET 150 MG PO (21:17)
[2020-12-14] MEDS: ROPINIROLE 0.25 MG TABLET 0.5 MG PO (21:18)
[2020-12-14] MEDS: DOCUSATE 100 MG CAPSULE PO (21:18)
[2020-12-14] MEDS: FAMOTIDINE 20 MG TABLET PO (21:19)
[2020-12-14] MEDS: DULOXETINE 30 MG CAPSULE 60 MG PO (21:19)
[2020-12-14] MEDS: risperiDONE 1 MG TABLET 2 MG PO (21:23)
[2020-12-14] MEDS: OXYCODONE ER 10 MG TAB PO (21:24)
[2020-12-14] MEDS: ACETAMINOPHEN 325 MG TABLET 650 MG PO (23:56)
--- NOTE | 2020-12-15 00:54 | PC.NURSE ---
Addendum entered by Helga Iqbal R.N. 12/15/20 06:19: Room air 91-92% with sleep. Eyes closed. No signs of distress or discomfort. Addendum entered by Helga Iqbal R.N. 12/15/20 03:46: Pt uses call light to summon staff for toileting. Up to commode with walker and standby assist. Pt requests pain meds when returned to bed. Prefers oxygen off and no cpap. Continuous monitor in place and will monitor. Original Note: Pt awake, alert and requesting pain medications for pain 03/16 to back. Coversite dressing to lower back is dry and intact. Ice replaced to site. Assisted out of bed to commode. Observes back surgery precautions well. Voiding without difficulty. 02 2L nc with continuous pulse oximeter in place 96%. Refuses use of own cpap overnight. Denies nausea. Admits to full sensation to BL LE's. Foot pumps replaced after returned to bed. Encouraged to call for needs.
[2020-12-15] MEDS: OXYCODONE IR 5 MG TABLET 10 MG PO ×3 (03:33→12:22)
[2020-12-15 04:02] VITALS: BP 135/71; PULSE 74; RESP 16; TEMP 36.3; O2SAT 94
[2020-12-15] MEDS: CEFAZOLIN 2 GM/100 ML FROZ.PIGGY IV (04:26)
[2020-12-15] MEDS: ACETAMINOPHEN 325 MG TABLET 650 MG PO (06:43)
--- NOTE | 2020-12-15 07:43 | PM.PNPO.1 ---
Subjective Subjective Date Patient Seen: 12/15/20 Time Patient Seen: 07:44 Interval history: Patient states she is doing well overall and rates her pain a 4/10 in intensity. At this time the patient denies fever, chills, nausea, chest pain, shortness of breath, or urinary retention. Patient reports good sensation throughout the bilateral lower extremities light touch. She notes she has been able to ambulate around her room to use the commode. She states that she is looking forward to working with physical therapy today and ultimately being discharged home. Exam Vital Signs (past 8 hours): - 12/14/20 23:55 12/15/20 04:02 Temperature 97.2 F L 97.4 F L Pulse Rate 80 74 Respiratory Rate 16 16 Blood Pressure 140/72 135/71 Pulse Oximetry 95 94 Oxygen Delivery Method Nasal Cannula Oxygen Flow Rate 2 Narrative Exam Narrative: Pleasant 55-year-old female postop day 1 status post L5-S1 posterolateral and posterior interbody fusion, L5-S1 interbody cage placement, L5-S1 decompressive laminectomy, L5-S1 posterior nonsegmental instrumentation. Patient is resting comfortably in bed, is in no acute distress, is alert and oriented x3. Skin is warm dry, and the skin surrounding the incision site is free of erythema, warmth, induration, or discharge. Dressing over the incision site is free of strike through and is clean and dry. Good sensation appreciated throughout the bilateral lower extremities light touch. Hip flexion performed bilaterally against resistance, eliciting slight pain along the left lower extremity. Ankle dorsiflexion, plantar flexion, eversion, inversion performed bilaterally without difficulty or discomfort. Calves are soft nontender, negative Homans sign. Palpable pulses appreciated, capillary refill less than 2 seconds. No other signs of DVT appreciated. Const General: cooperative, healthy appearing and comfortable Resp Effort & Inspection: normal respiratory effort and able to speak in complete sentences Skin General: no rashes or lesions noted [facility] Medical History Anxiety Arthritis Bipolar disorder Chronic pain Depression DJD (degenerative joint disease) Failed total left knee replacement Fibromyalgia GERD (gastroesophageal reflux disease) Herniated disc History of migraine Hyperlipidemia Hypertension Impaired vision Incontinence Mixed sleep apnea Morbid obesity with BMI of 40.0-44.9, adult Nocturnal hypoxemia Numbness [place] on CPAP Pain 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 Postmenopausal Spinal stenosis of lumbar region with radiculopathy Weakness Surgical History History of arthroplasty of left knee (08/02/17) History of cholecystectomy History of hernia repair History of hysterectomy History of lateral meniscus repair of left knee History of neck surgery (~2003) History of open reduction and internal fixation (ORIF) procedure (06/06/17) History of surgery (05/18/18) Hx of fusion of cervical spine S/P epidural steroid injection (11/10/20) Social History household members: none Smoking Status: Current every day smoker alcohol intake: never Assessment & Plan Post-op Postoperative Procedures: Procedures Operation Date: 12/14/20 13:45 Actual Procedures Side Surgeon p L5-S1 TLIF w. instrumentation Not Applicable Tracey Gaytan MD Postoperative day: 1 Postoperative status: doing well Postoperative plan: ambulate Postoperative plan narrative: Patient is to continue working on ambulation with physical therapy with the assistance of a front wheeled walker. Current pain management regimen is to be continued as it is adequately controlling patient's pain level. Patient is to work on log rolling and others means of getting into and out of bed. Discharge home is a possibility today after patients works with physical therapy. Time Spent With Patient Time with patient: 15-24 minutes Quality VTE Deep Vein Thrombosis/Pulmonary Embolism Present on Admission: No
--- NOTE | 2020-12-15 08:01 | PM.DS.1 ---
History of Present Illness History of Present Illness Date Patient Seen: 12/15/20 Time Patient Seen: 08:01 Chief complaint: OPB Narrative: Refer to previous HPI. Discharge Providers Provider Discharge Date: 12/15/20 Consults: 12/11/20 09:29 Consult to Respiratory Therapy Evaluate & Treat Comment: Will need 2L02 with CPAP Physician Instructions: Evaluate and treat 12/14/20 12:07 Consult to Respiratory Therapy Evaluate & Treat Comment: Physician Instructions: Evaluate and treat 12/14/20 12:15 Consult to Respiratory Therapy Evaluate & Treat Comment: Physician Instructions: Evaluate and treat 12/14/20 17:17 Consult to Occupational Therapy Evaluate & Treat Comment: Physician Instructions: Evaluate and treat Consult to Physical Therapy Evaluate & Treat Comment: Physician Instructions: Evaluate and Treat Discharge provider: Tre Landry PA-C Summary Hospital Course Discharge Diagnosis: L5-S1 spinal stenosis with radiculopathy Lumbar spondylosis with radiculopathy Status post L5-S1 posterolateral and posterior interbody fusion, L5-S1 interbody cage placement, L5-S1 decompressive laminectomy, L5-S1 posterior nonsegmental instrumentation Hospital Course: Patient was admitted to the hospital following the above-listed procedure for the above-listed diagnosis. Following the procedure the patient has been convalescing appropriately and her pain has been managed with her current pain control regimen. Throughout the course of the patient's stay in the hospital she has denies fever, chills, nausea, chest pain, shortness of breath, or urinary retention. Patient has been ambulating successfully with assistance of a front wheeled walker. SCDs have been used for DVT prophylaxis. Status at Discharge Cognitive/behavioral status at discharge: oriented Functional status at discharge: uses cane/walker Overall status at discharge: patient is progressing back to baseline Exam Vital Signs (past 8 hours): - 12/15/20 04:02 Temperature 97.4 F L Pulse Rate 74 Respiratory Rate 16 Blood Pressure 135/71 Pulse Oximetry 94 Oxygen Delivery Method Nasal Cannula Oxygen Flow Rate 2 Narrative Exam Narrative: Pleasant 55-year-old female postop day 1. Patient is resting comfortably in bed, is in no acute distress, is alert and oriented x3. Skin is warm and dry, and the skin surrounding the incision site is free of erythema, warmth, induration, or discharge. Dressing over the incision is free of strike through hand is clean and dry. Good sensation appreciated throughout the bilateral lower extremities to light touch. Ankle dorsiflexion, plantar flexion, eversion, inversion performed bilaterally without difficulty or discomfort. Hip flexion performed against resistance bilaterally, eliciting slight pain on the left lower extremity. Calves are soft nontender, negative Homans sign. Palpable pulses appreciated, capillary refill less than 2 seconds. No other signs of DVT appreciated. Const General: cooperative, healthy appearing and comfortable Resp Effort & Inspection: normal respiratory effort and able to speak in complete sentences Skin General: no rashes or lesions noted [facility] Medical History Anxiety Arthritis Bipolar disorder Chronic pain Depression DJD (degenerative joint disease) Failed total left knee replacement Fibromyalgia GERD (gastroesophageal reflux disease) Herniated disc History of migraine Hyperlipidemia Hypertension Impaired vision Incontinence Mixed sleep apnea Morbid obesity with BMI of 40.0-44.9, adult Nocturnal hypoxemia Numbness [place] on CPAP Pain 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 Postmenopausal Spinal stenosis of lumbar region with radiculopathy Weakness Surgical History History of arthroplasty of left knee (08/02/17) History of cholecystectomy History of hernia repair History of hysterectomy History of lateral meniscus repair of left knee History of neck surgery (~2003) History of open reduction and internal fixation (ORIF) procedure (06/06/17) History of surgery (05/18/18) Hx of fusion of cervical spine S/P epidural steroid injection (11/10/20) Social History household members: none Smoking Status: Current every day smoker alcohol intake: never Discharge Assessment & Plan Assessment and Plan Assessment: Patient is doing well. Plan of Treatment: Patient is to continue working with physical therapy on ambulation with the assistance of a front wheeled walker. Current pain management regimen is to be continued as it is adequately controlling the patient's pain level. The 1st postoperative visit is scheduled for 2 weeks following discharge from the hospital with Dr. Gaytan or LEONIDAS. Patient is to continue weight-bearing as tolerated and is to avoid bending, twisting, or lifting in excess of 10 lb. Patient has been instructed to keep the dressing over the incision site intact and only to be changed as needed if it is to become damaged or soiled. Patient has also been instructed to contact the clinic with any concerns or questions. Any signs of increased redness, swelling, discharge, or pain surrounding the incision site should be reported to the clinic. Discharge Plan Discharge Plan Patient Disposition: Home Provider Discharge Comment: Patient cleared for discharge pending physical therapy approval. Discharge orders & Medications Discharge Orders: Discharge (Order); Ordered 12/15/20 Ordered By: Tre Landry Prescriptions: New acetaminophen 325 mg Tablet 650 mg PO Q6HR PRN (Reason: Pain, Mild (1-3)) Qty: 90 RF: 0 oxycodone 5 mg Tablet 10 mg PO Q3HR PRN (Reason: Pain, Severe (7-10)) Qty: 42 RF: 0 Continued albuterol sulfate [Ventolin HFA] 90 MCG/PUFF HFA aerosol inhaler 2 puff INH PRN PRN (Reason: Wheezing) Qty: 0 RF: 0 lamotrigine [Lamictal] 100 MG tablet 150 mg PO BEDTIME Qty: 0 RF: 0 risperidone [Risperdal] 2 MG tablet 2 mg PO BID Qty: 0 RF: 0 duloxetine 60 MG capsule,delayed release(DR/EC) 60 mg PO BID Qty: 0 RF: 0 oxybutynin chloride 10 mg Tablet Extended Release 24hr 10 mg PO DAILY RF: 0 valacyclovir [Valtrex] 500 mg Tablet 500 mg PO BID PRN (Reason: Breakouts) RF: 0 clonidine HCl 0.2 mg Tablet 0.2 mg PO BID RF: 0 famotidine 20 mg Tablet 20 mg PO BID RF: 0 ropinirole 0.25 mg Tablet 0.5 mg PO BEDTIME RF: 0 fentanyl 25 mcg/hr Patch 72 Hour 1 patch TRANSDERMAL Q72H RF: 0 oxycodone-acetaminophen 7.5-325 mg Tablet 1 tab PO QID PRN (Reason: Pain) RF: 0 solifenacin 10 mg Tablet 10 mg PO DAILY RF: 0 mirabegron 25 mg Tablet Extended Release 24 Hr 25 mg PO DAILY RF: 0 meloxicam [Mobic] 7.5 MG tablet 15 mg PO QDAY RF: 0 nicotine 21 mg/24 hr Patch 24 Hour 1 patch TRANSDERMAL DAILY RF: 0 simvastatin 40 mg Tablet 40 mg PO BEDTIME RF: 0 promethazine 25 mg Tablet 25 mg PO Q8H PRN (Reason: Nausea) RF: 0 hydroxyzine pamoate 25 mg Capsule 25 mg PO BEDTIME RF: 0 cholecalciferol (vitamin D3) [Vitamin D3] 5,000 unit Tablet 5,000 unit PO DAILY RF: 0 Diet/Activity/Treatments Diet: Diet as Tolerated Activity: Weight-bearing as tolerated. Avoid bending, twisting, or lifting in excess of 10 lb. Skin/Wound/Dressing Care Report to your healthcare provider any signs of infection, such as:: chills, fever, night sweats, increased pain, unusual drainage and unusual redness Dressing: Dressing over the incision can be changed as needed if it becomes soiled or damaged. Other wound treatment: Avoid soaking the incisions or placing any topical ointments over the incisions. Visit Report/Discharge Packet Instructions: DI for Transforaminal Lumbar Interbody Fusion Stand Alone Forms: Surgery Discharge Discharge Data Attending Provider: Tracey Gaytan VTE Deep Vein Thrombosis/Pulmonary Embolism Present on Admission: No
[2020-12-15 08:50] VITALS: PULSE 68; RESP 16; O2SAT 97
[2020-12-15 09:04] VITALS: BP 150/71; PULSE 72; RESP 16; TEMP 35.8; O2SAT 95
[2020-12-15] MEDS: CHOLECALCIFEROL (VITAMIN D3) 5,000 UNIT TABLET 5000 UNIT PO (09:15)
[2020-12-15 09:16] VITALS: BP 150/71; PULSE 72
[2020-12-15] MEDS: DOCUSATE 100 MG CAPSULE PO (09:16)
[2020-12-15] MEDS: cloNIDine 0.1 MG TABLET 0.2 MG PO (09:16)
[2020-12-15] MEDS: risperiDONE 1 MG TABLET 2 MG PO (09:16)
[2020-12-15] MEDS: FAMOTIDINE 20 MG TABLET PO (09:16)
[2020-12-15] MEDS: DULOXETINE 30 MG CAPSULE 60 MG PO (09:16)
[2020-12-15] MEDS: OXYBUTYNIN 5 MG ER TAB 10 MG PO (09:17)
[2020-12-15] MEDS: NICOTINE 21 MG PATCH TOP (09:17)
[2020-12-15] MEDS: fentaNYL 25 MCG/PATCH TOP (09:17)
[2020-12-15] MEDS: OXYCODONE ER 10 MG TAB PO (09:17)
[2020-12-15] MEDS: SOLIFENACIN 5 MG TABLET 10 MG PO (09:18)
[2020-12-15] MEDS: SODIUM CHLORIDE 0.9% FLUSH 10 ML IV (09:18)
--- NOTE | 2020-12-15 09:43 | OT.IP.EVAL ---
Current Diagnoses Obstructive sleep apnea (adult) (pediatric) (12/14/20) Spinal stenosis, lumbar region without neurogenic claudication (12/14/20) Dependence on other enabling machines and devices (12/14/20) Surgery Performed Operation Date: 12/14/20 13:45 Actual Procedures p L5-S1 TLIF w. instrumentation(Not Applicable) - Traecy Gaytan MD Past Medical History (Last Reviewed 12/15/20 @ 08:07 by Tre Landry PA-C) Anxiety Arthritis Bipolar disorder Chronic pain Depression DJD (degenerative joint disease) Failed total left knee replacement Fibromyalgia GERD (gastroesophageal reflux disease) Herniated disc History of migraine Hyperlipidemia Hypertension Impaired vision Incontinence Mixed sleep apnea Morbid obesity with BMI of 40.0-44.9, adult Nocturnal hypoxemia Numbness [place] on CPAP Pain 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 Postmenopausal Spinal stenosis of lumbar region with radiculopathy Weakness Surgical History (Last Reviewed 12/15/20 @ 08:07 by Tre Landry PA-C) History of arthroplasty of left knee (08/02/17) History of cholecystectomy History of hernia repair History of hysterectomy History of lateral meniscus repair of left knee History of neck surgery (~2003) History of open reduction and internal fixation (ORIF) procedure (06/06/17) History of surgery (05/18/18) Hx of fusion of cervical spine S/P epidural steroid injection (11/10/20) Occupational Therapy Inpatient Evaluation/Re-Eval M1 PT/OT-IP Prior Functional Status Start: 12/15/20 11:24 Freq: NEEDED Status: Active Protocol: Document 12/15/20 12:30 [facility] (Rec: 12/15/20 12:42 [facility] [id number]) Medical Review Prior Functional Status Medical History Reviewed Yes Communication able to make needs known Mobility and Gait pt stated that she is independent with all mobilities and ambulation without AD Activities of Daily Living and IADL's Pt states was independent with all ADL's, and needing increased time for IADl needs. Social History Household Members none Living Arrangements House Number of Floors (Floors) One Floor Number of Stairs To Enter/Railing? no steps to enter Home Environment Standard Height Toilet,Tub/ Shower Home Equipment Front Wheel Walker,Shower Seat with Backrest,Hand Held Shower Additional Social History Comment pt states that her caregiver will stay with her 27/02 for ~ 5 days and her son also can assist her as needed M2 OT-IP Current Condition Start: 12/15/20 12:26 Freq: Status: Active Protocol: Document 12/15/20 12:30 [facility] (Rec: 12/15/20 12:42 [facility] [id number]) Occupational Therapy Current Condition Current Condition Evaluation Date 12/15/20 Treatment Diagnosis S/p L5-S1 TLIF Diagnosis Onset Date 12/14/20 Post Operative Precautions Lumbar Precautions Log Roll,No Twisting,Limit Bending,Lifting Restriction of 10 lbs,Gait Belt above Incisional Area M3 OT- IP Subjective and Pain Start: 12/15/20 12:26 Freq: Status: Active Protocol: Document 12/15/20 12:30 [facility] (Rec: 12/15/20 12:42 [facility] [id number]) OT- Subjective Occupational Therapy Visit Type Type Initial Evaluation Visit Start Time 08:58 Visit Stop Time 09:43 Total Visit Minutes 35 Notes Pt seen for split treatment [id number], [id number]. Occupational Therapy Visit Comments Patient Comments Pt agreed to get up and use the bathroom. Patient/Caregiver Goals TO go home. OT Pain Assessment Pain When Pain Assessed At Rest Pain Present Pain Present Pain Reported Location Back Intensity 5 Scale Used Numeric (0 - 10) M4 OT- IP ADL's Start: 12/15/20 12:26 Freq: Status: Active Protocol: Document 12/15/20 12:30 [facility] (Rec: 12/15/20 12:42 [facility] [id number]) OT RIY-Zheq-Zuorzma General Evaluation Self-Feeding Ability Independent OT ADL-Grooming General Evaluation Grooming Ability Standby Assistance Areas Needing Assistance Retrieving/Set-up of Grooming Items OT ADL-Oral Care General Eval Oral Care Ability Independent Comments Oral Care Comments Educated to spit into a cup versus hinge at hips to lean to spit into the sink to best follow her back precautions. OT ADL-Dressing General Eval Lower Body Dressing Ability Standby Assistance,Maximum Assistance Areas Needing Assistance Underpants/Brief,Pants/Shorts, Socks Comments OT Dressing Comments Able to issue and educate pt on use of LB dressing equipment so pt best able to follow her back precautions. OT ADL-Toileting General Evaluation Toileting Ability Standby Assistance Comments OT Toileting Comments SBA vc for safety awareness. Pt able to appropriately reach to wipe after education to stand and wipe. Pt states to wear pads at night. OT ADL-Bathing Comments OT Bathing Comments Pt insisting that she will shower at home. M5 OT- IP IADL's Start: 12/15/20 12:26 Freq: Status: Active Protocol: Document 12/15/20 12:30 [facility] (Rec: 12/15/20 12:42 [facility] [id number]) OT-Instrumental Activities of Daily Living Home Safety Awareness Awareness of Need for Assistance at Home Good Awareness Home Safety Comments Pt a bit groggy and pt will have assist from her caregiver and son for all needs. M6 OT- IP Functional Cognition Start: 12/15/20 12:26 Freq: Status: Active Protocol: Document 12/15/20 12:30 [facility] (Rec: 12/15/20 12:42 [facility] [id number]) Cognitive Factors Limiting Selfcare Function Cognitive Ability Level of Alertness Alert Patient Orientation Name,Place,Situation Attention Span Ability Capable of Focused Attention, Capable of Sustained Attention Ability to Follow Commands Able to Follow One Step Commands Memory Description Short Term Impaired Safety Awareness Decreased Recall of Precautions,Decreased Ability to Apply Precautions, Underestimates Need for Assistance Problem Solving Ability Needs Assist to Identify Solutions Cognitive Comments Cognitive Assessment Comments Pt needing cues to follow back precautions, reminders to follow log rolling needs, and VC to keep the FWW in front of her at all times. OT- Vision and Hearing OT- Hearing Assessment OT- Hearing Assessment WFL OT- Vision Assessment Visual Acuity Glasses All The Time M7 OT- IP Mobility and Balance Start: 12/15/20 12:26 Freq: Status: Active Protocol: Document 12/15/20 12:30 [facility] (Rec: 12/15/20 12:42 [facility] [id number]) OT- Bed Mobility Assessment Rolling Type of Rolling Roll to Left Level of Assistance Standby Assistance Supine to Sit Supine to Sit Assist Standby Assistance Sit to Supine Sit to Supine Assist Standby Assistance OT-Transfer Assessment Sit to and From Stand Sit to and from Stand Standby Assistance Transfers Transfer Ability Standby Assistance Technique Transfer Destination Bed,Chair,Toilet Transfer Technique Stand Step Pivot Devices Transfer Assistive Devices Gait Belt,Front Wheeled Walker Comments Mobility Comments Pt needing initial education of log rolling and vc to push up from the bed before standing. Pt able to get into and out of high bed stimulated to pt's bed height at home. Pt SBA with FWW. OT- Balance Assessment Sitting Balance and Reactions Static Sitting Balance Ability Normal Dynamic Sitting Balance Ability Good Standing Balance and Reactions Static Standing Balance Ability Fair M8 OT- IP Objective Assessments Start: 12/15/20 12:26 Freq: Status: Active Protocol: Document 12/15/20 12:30 [facility] (Rec: 12/15/20 12:42 [facility] [id number]) OT Gross Range of Motion Upper Extremity Range of Motion Assessment Within Functional Limits M9 OT- IP Assessment and Plan Start: 12/15/20 12:26 Freq: Status: Active Protocol: Document 12/15/20 12:30 [facility] (Rec: 12/15/20 12:42 [facility] [id number]) OT Summary Assessment and Plan Potential Rehabilitation Potential Good Analytic Complexity at Evaluation Low Summary OT Impairments Balance,Functional Cognition, Functional Mobility,Grooming, Dressing,Toileting,Bathing, Toilet Transfers,Shower Transfers,Activity Tolerance Progress Towards Goals Progressing Toward Goals Assessment Summary Pt low complexity and main barriers are pain and for pt to remember to incorporate back precautions for ADl and functional mobility needs. Pt to go and live with her son and caregiver initially to assist her with all her needs when pt medically stable. Goals Grooming Goal Independent Dressing Goal Independent Toileting Goal Independent Bathing Goal Independent Toilet Transfer Goal Independent Shower Transfer Goal Independent Patient/Caregiver Education Goal Demonstrate Post-Op Precautions Days to Meet Goals 5 Frequency of Treatment Frequency Of Treatment Once a Day Treatment Plan OT Treatment Plan ADL Training,Functional Cognition Training,Functional Mobility,Patient/Family Education,Discharge Planning Other Treatment Recommendations and Next Shower if pt still here. Treatment Focus Discharge Recommendations OT Discharge Recommendations Home with Assistance Transportation Needs at Discharge Private Vehicle
--- NOTE | 2020-12-15 09:46 | PT.IIE ---
Current Diagnoses Obstructive sleep apnea (adult) (pediatric) (12/14/20) Spinal stenosis, lumbar region without neurogenic claudication (12/14/20) Dependence on other enabling machines and devices (12/14/20) Surgery Performed Operation Date: 12/14/20 13:45 Actual Procedures p L5-S1 TLIF w. instrumentation(Not Applicable) - Tracey Gaytan MD Surgical History (Last Reviewed 12/15/20 @ 08:07 by Tre Landry PA-C) History of arthroplasty of left knee (08/02/17) History of cholecystectomy History of hernia repair History of hysterectomy History of lateral meniscus repair of left knee History of neck surgery (~2003) History of open reduction and internal fixation (ORIF) procedure (06/06/17) History of surgery (05/18/18) Hx of fusion of cervical spine S/P epidural steroid injection (11/10/20) Medical History (Last Reviewed 12/15/20 @ 08:07 by Tre Landry PA-C) Anxiety Arthritis Bipolar disorder Chronic pain Depression DJD (degenerative joint disease) Failed total left knee replacement Fibromyalgia GERD (gastroesophageal reflux disease) Herniated disc History of migraine Hyperlipidemia Hypertension Impaired vision Incontinence Mixed sleep apnea Morbid obesity with BMI of 40.0-44.9, adult Nocturnal hypoxemia Numbness [place] on CPAP Pain 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 Postmenopausal Spinal stenosis of lumbar region with radiculopathy Weakness Physical Therapy Inpatient Evaluation/Re-Eval M1 PT/OT-IP Prior Functional Status Start: 12/15/20 11:24 Freq: NEEDED Status: Active Protocol: Document 12/15/20 09:46 [facility] (Rec: 12/15/20 11:31 [facility] [id number]) Medical Review Prior Functional Status Medical History Reviewed Yes Communication able to make needs known Mobility and Gait pt stated that she is independent with all mobilities and ambulation without AD Social History Household Members none Living Arrangements Apartment/Condo Number of Floors (Floors) One Floor Number of Stairs To Enter/Railing? no steps to enter Home Environment Standard Height Toilet,Tub/ Shower Home Equipment Front Wheel Walker,Shower Seat with Backrest,Hand Held Shower Additional Social History Comment pt staed that her caregiver will stay with her 24/7 for ~ 5 days and her son also can assist her as needed M2 PT-IP Current Condition Start: 12/15/20 11:24 Freq: NEEDED Status: Active Protocol: Document 12/15/20 09:46 [facility] (Rec: 12/15/20 11:31 [facility] [id number]) Physical Therapy Current Condition Current Condition Evaluation Date 12/15/20 Treatment Diagnosis s/p L5S1 fusion/lami; difficulty in walking Onset Date 12/14/20 Precautions Lumbar Precautions Log Roll,No Twisting,Limit Bending,Lifting Restriction of 10 lbs,Gait Belt above Incisional Area M3 PT-IP Subjective Start: 12/15/20 11:24 Freq: NEEDED Status: Active Protocol: Document 12/15/20 09:46 [facility] (Rec: 12/15/20 11:31 [facility] [id number]) Subjective Physical Therapy Visit Type Type Initial Evaluation Visit Start Time 09:46 Visit Stop Time 10:10 Total Visit Minutes 24 Number of RN TRIAGE Visits 0 Physical Therapy Visit Comments Patient Comments agreeable to do PT Therapy Pain Assessment Pain When Pain Assessed At Rest Pain Present Pain Present Pain Reported Location Back Intensity 6 Scale Used Numeric (0 - 10) Pain Management Techniques Apply Cold,Distraction, Modification of Treatment,Re- positioning,Timing of Activity with Medications M4 PT-IP Mobility and Gait Start: 12/15/20 11:24 Freq: NEEDED Status: Active Protocol: Document 12/15/20 09:46 [facility] (Rec: 12/15/20 11:31 [facility] [id number]) PT-Bed Mobility Assessment Rolling Type of Rolling Log Rolling Level of Assist Standby Assistance Supine to Sit Supine to Sit Standby Assistance Sit to Supine Sit to Supine Standby Assistance PT-Transfer Assessment Sit to and From Stand Sit to and from Stand Standby Assistance Equipment Transfer Assistive Device Gait Belt,Front Wheeled Walker Orthotic/Prosthetic Devices or Brace: No Transfers Transfer Destination Bed Transfer Technique Stand Step Pivot Transfer Ability Level of Assist Standby Assistance,1 Person Assistance,Use of Upper Extremities Comments Mobility Comments pt sitting on chair and agreeable to do PT. able to recall back precautions. completed sit to stand from chair SBA and completed step transfer to bed using FWW SBA. completed log roll sit<> supine SBA. agreed to ambulate more and completed ~ 100 ft using FWW in hallway SBA with occasional CGA during turns. agreed to stay up on chair. positioned on chair. call light and table placed within reach. informed nurse regarding pt's mobility. Gait Assessment Gait Gait Assistance Required: Standby Assistance,Contact Guard Assist,1 Person Assist Distance (Feet) 100 Able to Maintain Weight Bearing Status Yes During Gait Assistive Devices Assistive Device Gait Belt,Front Wheeled Walker Orthotic/Prosthetic Devices or Brace: No Gait Deviations General Gait Pattern Decreased Stride Length, Decreased Feet Clearance Factors Limiting Gait Function Factors Limiting Gait Function Decreased Activity Tolerance, Decreased Strength,Limited Range of Motion,Pain,Poor Balance,Poor Safety Awareness Comments Gait Comments pls refer to mobility section for details PT-Balance Assessment Sitting Balance and Reactions Static Sitting Balance Ability Good Dynamic Sitting Balance Ability Good Standing Balance and Reactions Static Standing Balance Ability Fair Dynamic Standing Balance Ability Fair Device Used FWW M5 PT-IP Objective Assessments Start: 12/15/20 11:24 Freq: NEEDED Status: Active Protocol: Document 12/15/20 09:46 [facility] (Rec: 12/15/20 11:31 [id number]) Orientation Orientation/Cognition Level of Alertness Alert Orientation Name,Place,Situation Language Function Ability No Deficits Noted Safety Awareness Understands Safety Issues Memory Description No Deficits Noted Gross Range of Motion Lower Extremity ROM Assessment Within Functional Limits Strength Lower Extremity Strength Assessment Within Functional Limits Sensation Assessment Sensation Gross Sensation WNL Muscle Tone Muscle Tone WNL Yes M6 PT-IP Treatment Start: 12/15/20 11:24 Freq: NEEDED Status: Active Protocol: Document 12/15/20 09:46 [facility] (Rec: 12/15/20 11:31 [email or web address]) Physical Therapy Treatment Education Education Provided Precautions,Safety M7 PT-IP Assessment and Plan Start: 12/15/20 11:24 Freq: NEEDED Status: Active Protocol: Document 12/15/20 09:46 [facility] (Rec: 12/15/20 11:31 [email or web address]) PT Summary Assessment and Plan Potential Rehabilitation Potential Good Status of Condition at Evaluation Stable Summary Impairments Pain,ROM,Strength,Balance, Coordination,Sensation,Tone, Cognition,Bed Mobility, Transfers,Gait,Activity Tolerance Assessment Summary pt requiring SBA to CGA with mobility using FWW and yamilex have her caregiver and son to assist her as needed. pt may go home when medically stable. Goals Bed Mobility Goal Independent Transfer Goal Independent,Front Wheeled Walker Gait Goal Independent,Front Wheel Walker Gait Distance 200 Days to Meet Goals 3 Frequency of Treatment Frequency Of Treatment Twice a Day Treatment Plan Physical Therapy Treatment Plan Bed Mobility Training,Transfer Training,Gait Training, Therapeutic Exercise,Balance Retraining,Post Op Education, Discharge Planning,Hot or Cold Pack,Neuromuscular Re-ed, Coordination Retraining,Manual Therapy Precautions Lumbar Precautions Log Roll,No Twisting,Limit Bending,Lifting Restriction of 10 lbs,Gait Belt above Incisional Area Recommendations To Nursing Amount of Assist Needed 1 Person Assist Discharge Recommendations PT Discharge Recommendations Home with Assistance Transportation Needs at Discharge Private Vehicle
--- NOTE | 2020-12-15 12:32 | PC.NURSE ---
Pt DI given to pt and caregiver, discussed- medications, f/u appts, s/s of infection, drsg care, reasons to seek medical attention. All questions answered. Pt to call surgeon's office to verify ASA medication and to schedule f/u, states she will do so today on her way home. IV removed, intact, tolerated well. All belongings, including prescriptions packed and sent with caregiver to POV. Pt to POV via w/c accompanied by ROAD TESTER.
--- NOTE | 2020-12-15 15:58 | CM.DANOTE ---
DCP/Assessment: Reviewed chart. Patient is a 55yr old female admitted to [facility] for for elective spinal surgery performed on 12-14-[address] Gaytan. PCP is Sayra Patrick. Primary payor is 1)Medicare 2)Medicaid. Met with patient this AM explained CM/SW role. Patient reports that she will be going home today. Patient has supportive friend/caregiver that she will be staying with. Patient uses CPAP at night and has FWW for home use. Patient denies any additional d/c planning needs. P: Home when medically stable. YOANA Cruz
== END 2020-12-15 12:41 | disposition home or self-care (01) | DRG 455 ==
LOC: OR 11:09 → AC 11:09
PROVIDERS: Admitting Provider Orthopaedic Surgery Orthopaedic Surgery of the Spine; Referring Provider Orthopaedic Surgery Orthopaedic Surgery of the Spine; Visit Provider Orthopaedic Surgery Orthopaedic Surgery of the Spine
PROC: 0SG30AJ Fusion of Lumbosacral Joint with Interbody Fusion Device, Posterior Approach, Anterior Column, Open Approach (ICD-10-PCS; principal; 2020-12-14 13:45)
DX: M48.07 Spinal stenosis, lumbosacral region (principal); M48.061 Spinal stenosis, lumbar region without neurogenic claudication; M70.62 Trochanteric bursitis, left hip; F17.210 Nicotine dependence, cigarettes, uncomplicated; J44.9 Chronic obstructive pulmonary disease, unspecified; E66.9 Obesity, unspecified; F41.9 Anxiety disorder, unspecified; F31.9 Bipolar disorder, unspecified; M79.7 Fibromyalgia; E78.5 Hyperlipidemia, unspecified; I10 Essential (primary) hypertension; G47.39 Other sleep apnea; Z68.36 Body mass index [BMI] 36.0-36.9, adult; Z20.822 Contact with and (suspected) exposure to COVID-19
CPT/HCPCS: 72100; 76000; 82962; 87635; 97161; 97165; 97530; 97535; C1776; C9803; A9270; C9290; J0690; J1100; J1170; J2250; J2405; J2704; J3010

== ENCOUNTER → 2022-06-21 09:37 | Outpatient (CLI) | payer MEDICARE, MEDICAID, SELFPAY ==
[2020-12-14 17:17] VITALS: BMI 36.1
[2022-06-21 10:37] LABS: COVID19 -Nasal RAPID Negative (Negative)
== END ==
PROVIDERS: Referring Provider Orthopaedic Surgery Orthopaedic Surgery of the Spine; Visit Provider Orthopaedic Surgery Orthopaedic Surgery of the Spine
DX: Z20.822 Contact with and (suspected) exposure to COVID-19 (principal)
CPT/HCPCS: 87635; C9803

== ENCOUNTER 2022-06-22 07:44 | Day surgery (SDC) | payer MEDICARE, MEDICAID, SELFPAY ==
[2020-12-14 17:17] VITALS: BMI 36.1
[2022-06-14 12:51] VITALS: BMI 38.0
[2022-06-22] VITALS (13 sets, daily range): BP systolic 122–168; BP diastolic 42–83; PULSE 82–97; RESP 10–24; TEMP 35.7–36.9; O2SAT 89–96; BMI 39.6
--- NOTE | 2022-06-22 | DI.RAD.S_ITS ---
PROCEDURE: XR CERVICAL SPINE 2V OR 3V INDICATIONS: ACDF C4-5 TECHNIQUE: Two intraoperative fluoroscopic spot view(s) of the cervical spine were acquired. COMPARISON: None. FINDINGS: Anterior cervical fixation hardware and disc spacer are present. IMPRESSION: Intraoperative fluoroscopy for ACDF at C4-5. Dictated by: Selina Kumar M.D. on 06/22/2022 at 16:06 Approved by: Selina Kumar M.D. on 06/22/2022 at 16:07
[2022-06-22] MEDS: LACTATED RINGERS 1,000 ML 42 ML IV ×2 (09:32→13:45)
--- NOTE | 2022-06-22 10:36 | PM.PREOP ---
Pre-operative Note COVID-19 COVID-19 status: Negative Result date/Date tested (Pos, Neg/Pending): 06/22/22 Criteria for continued procedure: Expected advancement of disease process, Possibility delay results in more complex future surgery or treatment, Increased loss of function, Continuing or worsening of significant or severe pain, Deterioration of the patient's condition or overall health and Delay expected to result in less-positive ultimate med/surg outcome Interval Note History & Physical reviewed/Exam performed by Physician: Yes Changes to H&P: No
[2022-06-22] MEDS: CEFAZOLIN 2 GM/100 ML PREMIX 100 ML IV ×2 (11:40→19:42)
--- NOTE | 2022-06-22 11:52 | SUR.OPER ---
Supine on padded OR bed, head on pillow, arms padded and tucked at sides, legs uncrossed, safety belt at thigh, tape over blanket over lower legs .
[2022-06-22] MEDS: BUPIVACAINE 0.25% (PF) 30 ML, EPINEPHrine 0.15 MG INJ (12:07)
[2022-06-22] MEDS: ACETAMINOPHEN IV 1,000 MG/100 ML VIAL 400 MG IV (12:40)
--- NOTE | 2022-06-22 13:38 | P.OP_ITS ---
Operative Date/Time/Diagnoses Date of procedure: 06/22/22 Time of procedure: 11:00 Pre-op diagnosis: 1. C4-5 spinal stenosis 2. Previous C5-7 acdf with hardware Post-op diagnosis: same Procedure & Clinicians Procedure: 1. C4-5 anterior cervical discectomy and fusion 2. C4-5 anterior interobody cage placement 3. C4-5 anterior instrumentation with plate and screws 4. Anterior cervical hardware removal 5. Utilization of microsurgical technique and operating microscope Same procedure as scheduled: Yes Indications: Patient has been having chronic neck pain and worsening cervical radiculopathy. Patient had prior C5-7 anterior cervical diskectomy fusion with retained hardware and developed adjacent level disease at C4-5 level. Patient failed multiple conservative management with worsening pain weakness and numbness in her upper extremity. Patient has been having difficulty performing activity of daily living. After discussing risks benefits of treatment options, patient elected proceed with surgery. Surgeon: Tracey Gaytan Maintenance And Utilities Supervisor: Delano Ruiz Click Yes if Unassisted: No Anesthesia Type: General Operative Notes Closure Type: primary Specimen(s): none sent Prosthetic devices, grafts, tissues, transplants, or devices: [employer] anterior plate, Titanium cage Estimated Blood Loss (mL): 5 Blood products transfused: none Procedure in detail: Patient was seen in the preoperative area. Risks and benefits of the surgery was discussed with the patient. Informed consent was obtained from the patient and placed in the chart. Surgical site was marked. Patient was taken to the operative room. General anesthesia was administered. Prophylactic antibiotic was given to the patient less than 30 min before the incision was made. Patient was placed into a supine position on a radiolucent table. Patient's shoulders were taped down to allow proper C-arm imaging. Anterior cervical area was prepped and draped in a sterile fashion. Time-out was performed at this time. Using lateral C-arm imaging, the level between C4 and C6 was identified and marked on patient's neck. A oblique incision from midline towards medial border of sternocleidomastoid muscle was made. The platysma muscle was incised in line with skin incision. Metzenbaum scissor was used to develop the plane between the medial border of sternocleidomastoid d and the strap muscles medially. The carotid sheath and its contents were identified and protected behind the hand- held retractor during the entire case. The plane between the carotid sheath and strap muscles was developed with Metzenbaum scissors. Dissection was made down to the level of the anterior cervical fascia. Longus colli muscle was incised on the anterior aspect of vertebral bodies bilaterally from C4-5. Spinal needle was placed into the C4-5 disc space and confirmed with lateral C-arm imaging. Using screwdrivers for the prior placed C5 screws for patient's previous C5-7 anterior cervical diskectomy and fusion, both C5 screws were removed from the plate in order to allow new screw to be placed for the C4-5 anterior interbody fusion. Using microsurgical technique and operative microscope, anterior cervical diskectomy was performed at C4-5 level. This was done by removing the disc material, removing the anterior and posterior osteophytes posterior longitudinal ligaments along with performing bilateral foraminotomies at the C4-5 levels. Patient was found to have severe foraminal stenosis. Patient's stenosis was fully decompressed after decompression was completed. After the diskectomy was completed, an anterior interbody cage was obtained. The cage was packed with DBM bone grafting material. One cage each along with the bone grafting material was then packed into the interbody space at C4-5 along with an anterior cervical plate. The cervical plate was stabilized to the C4-5 vertebrae using 2 screws with 1 screw per vertebral body. After confirming placement of the hardware with AP and lateral C-arm imaging, the screws were locked into the plate using the locking mechanism and torque limiting screwdriver. After the hardware was placed and confirmed with AP and lateral C-arm imaging, the wound was irrigated with sterile normal saline. The platysma muscle and the subcutaneous tissue was closed with 2-0 Vicryl. The skin was closed with 4-0 Monocryl and Steri-Strips. Patient tolerated the procedure well. Patient was transferred recovery room in stable condition. There were no complications. An physician educational program assistant was present during the entire procedure and was necessary for the entirety of the procedure as the transition assistant. Complications: none Post-operative Condition: stable Disposition: PACU Plan for aftercare: Admit to inpatient hospital
[2022-06-22] MEDS: ALBUTEROL 2.5 MG/3 ML NEB (ADULT) INH (13:44)
--- NOTE | 2022-06-22 14:25 | SUR.PHASEI ---
Neb given for expiratory wheezing. Good cough produced. Con't with occasional expiratory wheezing. Pt placed on CPAP with 2L O2 bled in (what pt does at home). O2 sats improved to 94-96%. When removed for transfer, O2 sat maintaining at 93%. Pt transferred to floor by MARITZA Olivo and MARITZA Roland. CPAP, dentures, nose ring, phone comparison shopper, and belongings bag sent to floor with patient. Received in room by MARITZA Kraus and MARITZA Garnett.
--- NOTE | 2022-06-22 15:15 | PC.NURSE ---
Assess- Patient is alert and oriented x4, she denies pain as she was given a local anesthetic towards the end of her surgery. She has a dressing to her anterior neck with gauze and tegaderm that is cdi. She has a soft collar in place for comfort and to help protect incision. She denies any numbness or tingling and is resting comfortably.
[2022-06-22] MEDS: SODIUM CHLORIDE 0.9% 1,000 ML 100 ML IV (15:27)
[2022-06-22] MEDS: OXYCODONE IR 5 MG TABLET PO ×2 (17:43→23:42)
[2022-06-22] MEDS: HYDROMORPHONE 0.5 MG INJ IV (19:43)
[2022-06-22] MEDS: hydrOXYzine pamoate 25 MG CAPSULE PO ×2 (20:40→23:42)
[2022-06-22] MEDS: ATORVASTATIN 20 MG TABLET PO (20:40)
[2022-06-22] MEDS: FAMOTIDINE 20 MG TABLET PO (20:42)
[2022-06-22] MEDS: ROPINIROLE 0.25 MG TABLET 0.5 MG PO (20:42)
[2022-06-22] MEDS: DULOXETINE 30 MG CAPSULE 60 MG PO (20:42)
[2022-06-22] MEDS: lamoTRIgine 100 MG TABLET 150 MG PO (20:43)
[2022-06-22] MEDS: risperiDONE 1 MG TABLET 4 MG PO (20:44)
[2022-06-23] MEDS: SODIUM CHLORIDE 0.9% 1,000 ML 100 ML IV (01:04)
[2022-06-23] MEDS: ACETAMINOPHEN 325 MG TABLET 650 MG PO (01:08)
[2022-06-23] MEDS: hydrOXYzine pamoate 25 MG CAPSULE PO ×2 (03:52→08:13)
[2022-06-23] MEDS: OXYCODONE IR 5 MG TABLET PO ×2 (03:52→08:14)
[2022-06-23] MEDS: CEFAZOLIN 2 GM/100 ML PREMIX 100 ML IV (03:53)
--- NOTE | 2022-06-23 07:45 | P.DS_ITS ---
History of Present Illness History of Present Illness Date Patient Seen: 06/23/22 Time Patient Seen: 07:45 Chief complaint: INPT Narrative: Patient is complaining of [id number] neck pain this morning. She is having some difficulty swallowing but is able to tolerate ice chips. She is not worked with physical therapy or occupational therapy yet. No nausea or vomiting. No numbness or tingling noted. Discharge Providers Provider Date of admission: 06/22/22 07:44 Discharge Date: 06/23/22 Primary care physician: Doctor Ramesh MD Consults: 06/22/22 14:35 Consult to Occupational Therapy Evaluate & Treat Comment: Physician Instructions: Evaluate and treat Consult to Physical Therapy Evaluate & Treat Comment: Physician Instructions: Evaluate and Treat Discharge provider: Stacy Clay PA-C Summary Hospital Course Discharge Diagnosis: 1. C4-5 spinal stenosis 2. Previous C5-7 acdf with hardware Hospital Course: Operative Date/Time/Diagnoses Date of procedure: 06/22/22 Time of procedure: 11:00 Procedure & Clinicians Procedure: 1. C4-5 anterior cervical discectomy and fusion 2. C4-5 anterior interobody cage placement 3. C4-5 anterior instrumentation with plate and screws 4.? Anterior cervical hardware removal 5. Utilization of microsurgical technique and operating microscope Same procedure as scheduled: Yes Indications: Patient has been having chronic neck pain and worsening cervical radiculopathy.? Patient had prior C5-7 anterior cervical diskectomy fusion with retained hardware and developed adjacent level disease at C4-5 level. Patient failed multiple conservative management with worsening pain weakness and numbness in her upper extremity.? Patient has been having difficulty performing activity of daily living.? After discussing risks benefits of treatment options, patient elected proceed with surgery. Surgeon: Tracey Gaytan Health Editor: Delano Ruiz Click Yes if Unassisted: No Anesthesia Type: General Operative Notes Closure Type: primary Specimen(s): none sent Prosthetic devices, grafts, tissues, transplants, or devices: [employer] anterior plate, Titanium cage Estimated Blood Loss (mL): 5 Blood products transfused: none Status at Discharge Cognitive/behavioral status at discharge: at baseline, oriented Functional status at discharge: independent ambulation Overall status at discharge: patient is progressing back to baseline Exam Vital Signs (past 8 hours): - 06/22/22 23:58 Temperature 96.3 F L Pulse Rate 82 Respiratory Rate 16 Blood Pressure 129/59 L Pulse Oximetry 95 Oxygen Flow Rate 0 Oxygen Delivery Method Nasal Cannula Oxygen Flow Rate 0 Narrative Exam Narrative: Pleasant 57-year-old female, resting comfortably in bed, no acute distress. Neck dressing is clean, dry, intact. There is no surrounding erythema, induration, or ivanna pus. Bilateral upper extremity: Motor functions are grossly intact, strength is 5/5 throughout, sensation is grossly intact to light touch. [facility] Medical History Anxiety Arthritis Bipolar disorder Chronic pain Depression DJD (degenerative joint disease) Failed total left knee replacement Fibromyalgia GERD (gastroesophageal reflux disease) Herniated disc History of migraine Hyperlipidemia Hypertension Impaired vision Incontinence Mixed sleep apnea Morbid obesity with BMI of 40.0-44.9, adult Nocturnal hypoxemia Numbness [place] on CPAP Pain 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 Postmenopausal Spinal stenosis of lumbar region with radiculopathy Weakness Surgical History History of arthroplasty of left knee (08/02/17) History of cholecystectomy History of hernia repair History of hysterectomy History of lateral meniscus repair of left knee History of lumbar spinal fusion (12/14/20) History of neck surgery (~2003) History of open reduction and internal fixation (ORIF) procedure (06/06/17) History of surgery (05/18/18) Hx of fusion of cervical spine S/P epidural steroid injection (11/10/20) Social History household members: children Smoking Status: Former smoker alcohol intake: never Discharge Assessment & Plan Assessment and Plan Assessment: -stable status post C4-5 ACDF, anterior cervical hardware removal Plan of Treatment: -mobilize with PT/OT. No bending, lifting, twisting x6 weeks -continue with multimodal pain management -DC home today once cleared by PT/OT -follow-up with ortho in 10-14 days postoperatively. Discharge Plan Discharge Plan Patient Disposition: Home Discharge orders & Medications Prescriptions: New hydroxyzine pamoate 25 mg Capsule 25 mg PO Q6HR PRN (Reason: Pain/muscle spasm/nausea) Qty: 40 0RF docusate sodium 100 mg Capsule 100 mg PO BID PRN (Reason: constipation) Qty: 20 0RF oxycodone 5 mg Tablet See Rx Instructions .ROUTE .COMPLEX PRN (Reason: Pain, Moderate (4-6)) Qty: 42 0RF Rx Instructions: Take 1-2 tablets by mouth every 4 hours as needed for to severe postoperative pain Continued albuterol sulfate [Ventolin HFA] 90 MCG/PUFF HFA aerosol inhaler 2 puff INH PRN PRN (Reason: Wheezing) Qty: 0 lamotrigine [Lamictal] 100 MG tablet 150 mg PO BEDTIME Qty: 0 risperidone [Risperdal] 2 MG tablet 2 mg PO DIRECTED Qty: 0 Label Comments: 2mg qam, 4mg qpm duloxetine 60 MG capsule,delayed release(DR/EC) 60 mg PO BID Qty: 0 valacyclovir [Valtrex] 500 mg Tablet 500 mg PO BID PRN (Reason: Breakouts) famotidine 20 mg Tablet 20 mg PO BID ropinirole 0.25 mg Tablet 0.5 mg PO BEDTIME mirabegron 25 mg Tablet Extended Release 24 Hr 50 mg PO DAILY acetaminophen 325 mg Tablet 650 mg PO Q6HR PRN (Reason: Pain, Mild (1-3)) Qty: 90 0RF simvastatin 40 mg Tablet 40 mg PO BEDTIME promethazine 25 mg Tablet 25 mg PO Q8H PRN (Reason: Nausea) hydroxyzine pamoate 25 mg Capsule 25 mg PO BEDTIME cholecalciferol (vitamin D3) [Vitamin D3] 5,000 unit Tablet 5,000 unit PO DAILY aspirin 81 mg Capsule 81 mg PO DAILY Discontinued oxycodone-acetaminophen 7.5-325 mg Tablet 1 tab PO QID PRN (Reason: Pain) meloxicam [Mobic] 7.5 MG tablet 15 mg PO QDAY Follow up/Referrals: Miscellaneous,DoctorMD [Primary Care Provider] - Tracey Gaytan MD [Physician] - (10-14 days for postoperative visit) Diet/Activity/Treatments Diet: Diet as Tolerated Other treatments: Medications: -OTC Tylenol 500 mg 1 tablet every 4 hours as needed for pain/fever. Max 3,000mg per day. -Oxycodone 5 mg take 1-2 tablets every 4 hours as needed for moderate-severe pain (narcotic pain medication). -As needed medications: -Ducolax and /or MiraLax as needed for constipation from narcotic pain medications. -Pepcid AC as needed for stomach upset. -Vistaril (hydroxyine) 25mg 1 tab every 4 hours as needed for spasms/pain/nausea. Diet: -Stick with soft, easy to swallow foods for the first few days. Dressing/Wound care: -Keep dressing in place until postoperative follow-up office visit. -Okay to shower. Keep wound out of direct water stream. Can use PressNSeal plastic wrap to protect from shower stream. No soaking or submerging until all the scabs fall off (approximately 6 weeks). -Please call the office if dressing becomes wet, soiled, or saturated. Activities: -Wear collar when sitting upright or standing. May take off to eat and shower. Can sleep without collar, but you may find it more comfortable to wear while sleeping. -Limit bending, lifting, twisting. -Continue with home exercises as directed by your physical therapist. -Ice your incision as needed for pain/inflammation/swelling. You can heat to the back of your neck as needed for pain. Protect your skin with a folded pillowcase. -Incentive Spirometer (breathing device from hospital): 5-10xs every hour while awake for the first 1-2 weeks. Follow-up: -Follow-up with your surgeon or PA in the office in 10-14 days after surgery. -Follow-up with your surgeon 6 weeks postoperatively. Call the office if you have chest pain, shortness of breath, significant swelling that will not resolve with elevating, fever over 101?, significantly worsening pain, or are concerned you might need to go to the Emergency Room. [facility]: [phone] Skin/Wound/Dressing Care Report to your healthcare provider any signs of infection, such as:: chills, f ever, night sweats, unusual drainage and unusual redness Visit Report/Discharge Packet Instructions: DI for Anterior Cervical Discectomy and Fusion, DI for Prescription Opioid Use Stand Alone Forms: Surgery Discharge Discharge Data Primary Care Provider: Miscellaneous,Doctor
[2022-06-23 08:00] VITALS: BP 156/75; PULSE 77; RESP 16; TEMP 35.8; O2SAT 95
[2022-06-23] MEDS: DULOXETINE 30 MG CAPSULE 60 MG PO (08:13)
[2022-06-23] MEDS: FAMOTIDINE 20 MG TABLET PO (08:13)
[2022-06-23] MEDS: CHOLECALCIFEROL (VITAMIN D3) 5,000 UNIT TABLET 5000 UNIT PO (08:14)
--- NOTE | 2022-06-23 08:18 | PT.IIE ---
Current Diagnoses Other spondylosis with myelopathy, cervical region (06/22/22) Spinal stenosis, cervical region (06/22/22) Arthrodesis status (06/22/22) Surgery Performed Operation Date: 06/22/22 10:15 Actual Procedures p C4-5 ACDF, HWR C5 - Tracey Gaytan MD Surgical History (Last Reviewed 06/23/22 @ 07:47 by Stacy Clay PA-C) History of arthroplasty of left knee (08/02/17) History of cholecystectomy History of hernia repair History of hysterectomy History of lateral meniscus repair of left knee History of lumbar spinal fusion (12/14/20) History of neck surgery (~2003) History of open reduction and internal fixation (ORIF) procedure (06/06/17) History of surgery (05/18/18) Hx of fusion of cervical spine S/P epidural steroid injection (11/10/20) Medical History (Last Reviewed 06/23/22 @ 07:47 by Stacy Clay PA-C) Anxiety Arthritis Bipolar disorder Chronic pain Depression DJD (degenerative joint disease) Failed total left knee replacement Fibromyalgia GERD (gastroesophageal reflux disease) Herniated disc History of migraine Hyperlipidemia Hypertension Impaired vision Incontinence Mixed sleep apnea Morbid obesity with BMI of 40.0-44.9, adult Nocturnal hypoxemia Numbness [place] on CPAP Pain 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 Postmenopausal Spinal stenosis of lumbar region with radiculopathy Weakness Physical Therapy Inpatient Evaluation/Re-Eval M1 PT/OT-IP Prior Functional Status Start: 06/23/22 08:10 Freq: NEEDED Status: Active Protocol: Document 06/23/22 08:10 [facility] (Rec: 06/23/22 08:18 [facility] [id number]) Medical Review Prior Functional Status Medical History Reviewed Yes Diet/Fluid Consistency Regular Communication WNL Mobility and Gait indep w/o AD Activities of Daily Living and IADL's Indep w/ADLs and does own cooking and cleaning Social History Household Members children Living Arrangements Apartment/Condo Number of Floors (Floors) Two Floors Number of Stairs To Enter/Railing? 1 full flight to enter w/B rails Home Environment Standard Height Toilet,Walk in Shower Home Equipment Front Wheel Walker,Shower Seat without Backrest,Borough Coordinator,Grab Bars In Shower Additional Social History Comment not working and son is disabled and 38 y.o. and able to help her as much as needed; Pt props herself up so she is at an incline in bed M2 PT-IP Current Condition Start: 06/23/22 08:10 Freq: NEEDED Status: Active Protocol: Document 06/23/22 08:10 [facility] (Rec: 06/23/22 08:18 [facility] [id number]) Physical Therapy Current Condition Current Condition Evaluation Date 06/23/22 Treatment Diagnosis C4-5 ACDF Onset Date 06/22/22 M3 PT-IP Subjective Start: 06/23/22 08:10 Freq: NEEDED Status: Active Protocol: Document 06/23/22 08:10 [facility] (Rec: 06/23/22 08:18 [facility] [id number]) Subjective Physical Therapy Visit Type Type Initial Evaluation Visit Start Time 07:30 Visit Stop Time 08:00 Total Visit Minutes 30 Number of PIGS FEET FINISHER Visits 0 Physical Therapy Visit Comments Patient Goals Go home when ever she can Therapy Pain Assessment Pain When Pain Assessed During Mobility Pain Present Pain Present Pain Reported M4 PT-IP Mobility and Gait Start: 06/23/22 08:10 Freq: NEEDED Status: Active Protocol: Document 06/23/22 08:10 [facility] (Rec: 06/23/22 08:18 [facility] [id number]) PT-Bed Mobility Assessment Supine to Sit Supine to Sit Independent,Head of Bed Elevated Scooting Scooting to Edge of Bed Independent PT-Transfer Assessment Sit to and From Stand Sit to and from Stand Independent,Use of Upper Extremities Equipment Transfer Assistive Device Gait Belt Orthotic/Prosthetic Devices or Brace: Yes Transfers Transfer Destination Chair Transfer Ability Level of Assist Independent Comments Mobility Comments supine to sit w/HOB elevated indep and pt stood indep and amb in room and into hallway SBA w/ no signs of LOB. She went up and down training staris 4x w/rails w/ no LOB SBA. Pt amb back to rooma nd sat in chair w/call light in reach. Gait Assessment Gait Gait Assistance Required: Standby Assistance Distance (Feet) 400 Able to Maintain Weight Bearing Status Yes During Gait Assistive Devices Assistive Device Gait Belt Orthotic/Prosthetic Devices or Brace: Yes Gait Deviations General Gait Pattern Within Normal Limits Stair Climbing Assessment Evaluation Level of Assist On Stairs Standby Assistance Devices Stair Climbing Assistive Devices Left Railing,Right Railing Technique/Endurance Stair Climbing Direction Ascend and Descend Stair Climbing Technique Step Over Step,Step to Step Number of Steps Climbed 4 Query Text: Stair Climbing Set # Repetitions (reps) 4 PT-Balance Assessment Sitting Balance and Reactions Static Sitting Balance Ability Normal Dynamic Sitting Balance Ability Normal Standing Balance and Reactions Static Standing Balance Ability Normal Dynamic Standing Balance Ability Good M5 PT-IP Objective Assessments Start: 06/23/22 08:10 Freq: NEEDED Status: Active Protocol: Document 06/23/22 08:10 [facility] (Rec: 06/23/22 08:18 [facility] [id number]) Orientation Orientation/Cognition Level of Alertness Alert Safety Awareness Understands Safety Issues Memory Description No Deficits Noted Gross Range of Motion Upper Extremity ROM Assessment Within Functional Limits Lower Extremity ROM Assessment Within Functional Limits Strength Upper Extremity Strength Assessment Within Functional Limits Lower Extremity Strength Assessment Within Functional Limits M6 PT-IP Treatment Start: 06/23/22 08:10 Freq: NEEDED Status: Active Protocol: Document 06/23/22 08:10 [facility] (Rec: 06/23/22 08:18 [facility] [id number]) Physical Therapy Treatment Exercises Exercises Ankle Pumps Education Education Provided Precautions,Weight Bearing Status,Post-Op Packet,Safety M7 PT-IP Assessment and Plan Start: 06/23/22 08:10 Freq: NEEDED Status: Active Protocol: Document 06/23/22 08:10 [facility] (Rec: 06/23/22 08:18 [facility] [id number]) PT Summary Assessment and Plan Potential Rehabilitation Potential Excellent Status of Condition at Evaluation Evolving Summary Impairments Pain,ROM,Strength,Gait, Activity Tolerance Assessment Summary Pt presents day 1 s/p C4-5 ACDF with good pain control and good mobility. Pt is confident about return home and shows no deficits w/her mobility at this time. She is safe based on mobility requirements to return home. Frequency of Treatment Frequency Of Treatment Discharge Treatment Plan Physical Therapy Treatment Plan Bed Mobility Training,Transfer Training,Gait Training, Therapeutic Exercise,Balance Retraining,Post Op Education, Discharge Planning,Hot or Cold Pack,Neuromuscular Re-ed, Manual Therapy Precautions Cervical Spine Precautions Soft Collar for Comfort,Soft Collar at all Times,Rigid Collar,No Heavy Lifting,Log Roll Recommendations To Nursing Amount of Assist Needed Standby Assistance Discharge Recommendations PT Discharge Recommendations Home with Assistance, Outpatient PT Transportation Needs at Discharge Private Vehicle
[2022-06-23 08:33] LABS: Hematocrit 37.4 % (36-46); Hemoglobin 12.5 g/dL (12.0-16.0)
--- NOTE | 2022-06-23 09:06 | OT.IP.EVAL ---
Current Diagnoses Other spondylosis with myelopathy, cervical region (06/22/22) Spinal stenosis, cervical region (06/22/22) Arthrodesis status (06/22/22) Surgery Performed Operation Date: 06/22/22 10:15 Actual Procedures p C4-5 ACDF, HWR C5 - Tracey Gaytan MD Past Medical History (Last Reviewed 06/23/22 @ 07:47 by Stacy Clay PA-C) Anxiety Arthritis Bipolar disorder Chronic pain Depression DJD (degenerative joint disease) Failed total left knee replacement Fibromyalgia GERD (gastroesophageal reflux disease) Herniated disc History of migraine Hyperlipidemia Hypertension Impaired vision Incontinence Mixed sleep apnea Morbid obesity with BMI of 40.0-44.9, adult Nocturnal hypoxemia Numbness [place] on CPAP Pain 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 Postmenopausal Spinal stenosis of lumbar region with radiculopathy Weakness Surgical History (Last Reviewed 06/23/22 @ 07:47 by Stacy Clay PA-C) History of arthroplasty of left knee (08/02/17) History of cholecystectomy History of hernia repair History of hysterectomy History of lateral meniscus repair of left knee History of lumbar spinal fusion (12/14/20) History of neck surgery (~2003) History of open reduction and internal fixation (ORIF) procedure (06/06/17) History of surgery (05/18/18) Hx of fusion of cervical spine S/P epidural steroid injection (11/10/20) Occupational Therapy Inpatient Evaluation/Re-Eval M1 PT/OT-IP Prior Functional Status Start: 06/23/22 08:10 Freq: NEEDED Status: Discharge Protocol: Document 06/23/22 08:10 [facility] (Rec: 06/23/22 08:18 [facility] [id number]) Medical Review Prior Functional Status Medical History Reviewed Yes Diet/Fluid Consistency Regular Communication WNL Mobility and Gait indep w/o AD Activities of Daily Living and IADL's Indep w/ADLs and does own cooking and cleaning Social History Household Members children Living Arrangements Apartment/Condo Number of Floors (Floors) Two Floors Number of Stairs To Enter/Railing? 1 full flight to enter w/B rails Home Environment Standard Height Toilet,Walk in Shower Home Equipment Front Wheel Walker,Shower Seat without Backrest,Locomotive Observer,Grab Bars In Shower Additional Social History Comment not working and son is disabled and 38 y.o. and able to help her as much as needed; Pt props herself up so she is at an incline in bed M1 PT/OT-IP Prior Functional Status Start: 06/23/22 10:14 Freq: NEEDED Status: Active Protocol: Document 06/23/22 08:58 [facility] (Rec: 06/23/22 10:25 [facility] [id number]) Medical Review Prior Functional Status Medical History Reviewed Yes Diet/Fluid Consistency Regular Communication WNL Mobility and Gait indep w/o AD Activities of Daily Living and IADL's Indep w/ADLs and does own cooking and cleaning Social History Household Members children Living Arrangements Apartment/Condo Number of Floors (Floors) Two Floors Number of Stairs To Enter/Railing? 1 full flight to enter w/B rails Home Environment Standard Height Toilet,Walk in Shower Home Equipment Front Wheel Walker,Shower Seat without Backrest,Locomotive Observer,Grab Bars In Shower Additional Social History Comment not working and son is disabled and 38 y.o. and able to help her as much as needed; Pt props herself up so she is at an incline in bed M2 OT-IP Current Condition Start: 06/23/22 10:14 Freq: Status: Active Protocol: Document 06/23/22 08:58 [facility] (Rec: 06/23/22 10:25 [facility] [id number]) Occupational Therapy Current Condition Current Condition Evaluation Date 06/23/22 Treatment Diagnosis S/p C4-5 ACDF Diagnosis Onset Date 06/22/22 Post Operative Precautions Cervical Spine Precautions Soft Collar for Comfort,No Heavy Lifting,Log Roll M3 OT- IP Subjective and Pain Start: 06/23/22 10:14 Freq: Status: Active Protocol: Document 06/23/22 08:58 [facility] (Rec: 06/23/22 10:25 [facility] [id number]) OT- Subjective Occupational Therapy Visit Type Type Initial Evaluation Visit Start Time 08:58 Visit Stop Time 09:06 Total Visit Minutes 8 Occupational Therapy Visit Comments Patient Comments Pt agreed to work with OT. Patient/Caregiver Goals TO go home. OT Pain Assessment Pain When Pain Assessed At Rest Pain Present Pain Present Denied Pain M4 OT- IP ADL's Start: 06/23/22 10:14 Freq: Status: Active Protocol: Document 06/23/22 08:58 [facility] (Rec: 06/23/22 10:25 [facility] [id number]) OT [id number] Comments OT Self-Feeding Comments Pt states had haney and toast for breakfast and suggested to make sure to have softer food , chew food thoroughly, alternate between solids and liquids and eat while upright. OT ADL-Grooming General Evaluation Grooming Ability Independent OT ADL-Oral Care General Eval Oral Care Ability Independent Comments Oral Care Comments Educated best to spit into a cup to best follow her cervical precautions. OT ADL-Dressing General Eval Upper Body Dressing Ability Independent Lower Body Dressing Ability Moderate Assistance Comments OT Dressing Comments Pt able to milly/doff the soft collar on her own. Pt needing SBA while initially standing to milly right pant leg and then cued to sit down for safely for LB dressing needs. Pt will need assist for her shoes and socks which she states her son to assist. OT ADL-Toileting Comments OT Toileting Comments No performed. Educated on use of toilet paper aid and wet wipes for increased ease for hygiene needs. Suggested to wear pads as needed so not having to hurry to the bathroom at night. OT ADL-Bathing Comments OT Bathing Comments Not performed and pt states to use th shower stool at home and has her son close by. M5 OT- IP IADL's Start: 06/23/22 10:14 Freq: Status: Active Protocol: Document 06/23/22 08:58 [facility] (Rec: 06/23/22 10:25 [facility] [id number]) OT-Instrumental Activities of Daily Living Home Safety Awareness Awareness of Need for Assistance at Home Good Awareness Ability to Problem Solve Emergency Able to Problem Solve Situations Home Safety Comments Pt's has a supportive son to be able to assist with her needs. Meal Preparation Meal Preparation Caregiver Provides Assist Etl Manager Etl Manager Caregiver Provides Assist M6 OT- IP Functional Cognition Start: 06/23/22 10:14 Freq: Status: Active Protocol: Document 06/23/22 08:58 [facility] (Rec: 06/23/22 10:25 [facility] [id number]) Cognitive Factors Limiting Selfcare Function Cognitive Ability Level of Alertness Alert Patient Orientation Name,Age,Birthday,Month,Date, Year,Day of Week,Place, Situation Attention Span Ability Capable of Focused Attention, Capable of Sustained Attention Ability to Follow Commands Able to Follow Multi-Step Commands Cognitive Comments Cognitive Assessment Comments No deficits noted. Just given pt one safety cue to sit for LB dressing needs at this time . OT- Vision and Hearing OT- Hearing Assessment OT- Hearing Assessment WFL M7 OT- IP Mobility and Balance Start: 06/23/22 10:14 Freq: Status: Active Protocol: Document 06/23/22 08:58 [facility] (Rec: 06/23/22 10:25 [facility] [id number]) OT-Transfer Assessment Sit to and From Stand Sit to and from Stand Independent Transfers Transfer Ability Independent Technique Transfer Destination Chair Comments Mobility Comments Pt independent in the room for level surfaces. OT- Balance Assessment Sitting Balance and Reactions Static Sitting Balance Ability Normal Dynamic Sitting Balance Ability Normal Standing Balance and Reactions Static Standing Balance Ability Good Dynamic Standing Balance Ability Fair M8 OT- IP Objective Assessments Start: 06/23/22 10:14 Freq: Status: Active Protocol: Document 06/23/22 08:58 [facility] (Rec: 06/23/22 10:25 [facility] [id number]) OT-Muscle Tone Assessment Muscle Tone WNL Yes M9 OT- IP Assessment and Plan Start: 06/23/22 10:14 Freq: Status: Active Protocol: Document 06/23/22 08:58 [facility] (Rec: 06/23/22 10:25 [facility] [id number]) OT Summary Assessment and Plan Potential Rehabilitation Potential Excellent Analytic Complexity at Evaluation Low Summary OT Impairments Balance,Functional Mobility, Toileting,Bathing Progress Towards Goals Progressing Toward Goals Assessment Summary Pt low complexity and doing well and able to mobilize in the room on her own. Pt has a supportive son to be able to assist to put on her socks and shoes, and be there to assist for other ADL needs and for all IADL needs at this time. Goals Toileting Goal Independent Bathing Goal Independent Shower Transfer Goal Independent Days to Meet Goals 2 Frequency of Treatment Frequency Of Treatment Once a Day Treatment Plan OT Treatment Plan ADL Training,Functional Mobility,Patient/Family Education,Discharge Planning Discharge Recommendations OT Discharge Recommendations Home with Assistance Home Equipment Needs toilet paper aid Transportation Needs at Discharge Private Vehicle
--- NOTE | 2022-06-23 09:40 | PC.NURSE ---
Pt discharged at 0940, escorted off floor in wheelchair, accompanied by hospital staff and son. IV removed, discharge teaching provided including follow up appointments and medication changes. Questions and concerns addressed. All belongings left floor with patient.
== END 2022-06-23 09:42 | disposition home or self-care (01) ==
LOC: AC 06-23 08:53 → OR 06-24 07:51
PROVIDERS: Physician Assistant; Referring Provider Orthopaedic Surgery Orthopaedic Surgery of the Spine; Visit Provider Orthopaedic Surgery Orthopaedic Surgery of the Spine
PROC: (CPT 22551; principal; 2022-06-22 10:15)
DX: M48.02 Spinal stenosis, cervical region (principal); M54.12 Radiculopathy, cervical region; Z98.1 Arthrodesis status; Z20.822 Contact with and (suspected) exposure to COVID-19; M25.78 Osteophyte, vertebrae
CPT/HCPCS: 22551; 22853; 36415; 72040; 76000; 85014; 85018; 87635; 97162; 97165; 97535; C9803; A9270; J0131; J0171; J0690; J1100; J1170; J2250; J2405; J2704; J7613

== ENCOUNTER 2023-04-26 11:51 | Inpatient (IN) | payer MEDICARE, MEDICAID, SELFPAY ==
[2022-06-22 15:15] VITALS: BMI 39.6
[2023-04-18 10:09] VITALS: BMI 39.3
[2023-04-26] VITALS (12 sets, daily range): BP systolic 106–154; BP diastolic 47–75; PULSE 67–113; RESP 10–20; TEMP 35.9–36.7; O2SAT 90–96; BMI 39.3
--- NOTE | 2023-04-26 | DI.RAD.S_ITS ---
PROCEDURE: XR LUMBAR SPINE 2-3V INDICATIONS: L4-5 L5-S1 TLIF TECHNIQUE: 2 views of the lumbar spine were acquired. COMPARISON: [facility], CT, CT LUMBAR SPINE WITHOUT CONTRAST, 04/19/2023, 9:24. , CR, XR LUMBAR SPINE 2-3V, 12/14/2020, 13:44. FINDINGS: 2 fluoroscopy images demonstrate discectomy and posterior fusion at L4-L5 and L5-S1. IMPRESSION: Discectomy and posterior fusion at L4-L5 and L5-S1. Dictated by: Alonzo Jackson M.D. on 04/27/2023 at 10:35 Approved by: Alonzo Jackson M.D. on 04/27/2023 at 10:38
[2023-04-26] MEDS: LACTATED RINGERS 1,000 ML 42 ML IV ×2 (12:42→16:37)
--- NOTE | 2023-04-26 13:15 | PM.PREOP ---
Pre-operative Note Interval Note History & Physical reviewed/Exam performed by Physician: Yes Changes to H&P: No
[2023-04-26] MEDS: CEFAZOLIN 2 GM/100 ML PREMIX 100 ML IV (14:19)
--- NOTE | 2023-04-26 16:09 | SUR.OPER ---
Prone on spine table, head in foam head support, padded chest and pelvic supports, gel pad at knees, lower legs supported by pillows; nipples, genitalia and toes free of pressure, arms secured on foam padded arm boards at <90 degrees abduction. Tape over blanket at thigh secured to table. Gel pad placed between heels, to right lateral thigh against bed frame, right abd against bed frame.
[2023-04-26] MEDS: BUPIVACAINE 0.25% (PF) 60 ML, EPINEPHrine 0.15 MG INJ (16:35)
[2023-04-26] MEDS: BUPIVACAINE LIPOSOME 266 MG/20 ML VIAL INJ (17:05)
--- NOTE | 2023-04-26 17:29 | P.OP_ITS ---
Operative Date/Time/Diagnoses Date of procedure: 04/26/23 Time of procedure: 14:30 Pre-op diagnosis: 1. History of L5-S1 fusion with hardware loosening 2. L4-5 spinal stenosis with neurogenic claudication. Post-op diagnosis: same Procedure & Clinicians Procedure: 1. L4-5 posterolateral and posterior interbody fusion 2. L4-5 posterior interbody cage placement 3. L5-S1 posterior non-segmental instrumentation removal 4. L5-S1 revision laminectomy with exploration of fusion 5. L4-5, L5-S1 posterior segmental instrumentation with pedicle screw placement 6. L5-S1 posterolatearl fusion 7. [place] of bone marrow from iliac crest through a separate incision 8. Utilization of microsurgical technique and operating microscope 9. Utilization of robotic assisted fusion Same procedure as scheduled: Yes Indications: Patient has been having chronic back pain and worsening lumbar radiculopathy and symptoms of neurogenic claudication. Patient had previous lumbar fusion surgery and has been doing well until recently. Additional imaging with CT shows loosened hardware and possible pseudoarthrosis at the L5-S1 level. Patient failed multiple conservative management with worsening pain weakness and numbness in her lower extremity. Patient has been having difficulty performing activity of daily living. After discussing risks benefits of treatment options, patient elected proceed with surgery. Surgeon: Tracey Gaytan Legal Mediator: Ying Foster Click Yes if Unassisted: No Anesthesia Type: General Operative Notes Closure Type: primary Specimen(s): none sent Prosthetic devices, grafts, tissues, transplants, or devices: Globus CREO MIS screws, Rise cage Applied: catheter Estimated Blood Loss (mL): 100 Blood products transfused: none Procedure in detail: Patient was seen in the preoperative area. Risks and benefits of the surgery was discussed with the patient. Informed consent was obtained from the patient and placed in the chart. Surgical site was marked. Patient was taken to the operative room. General anesthesia was administered. Prophylactic antibiotic was given to the patient less than 30 min before the incision was made. Patient was placed into a prone position on the [place] table. Patient's back was then prepped and draped in the sterile fashion. Time-out was performed at this time. After patient was prepped and draped, patient's PSIS was palpated and marked bilaterally. Small 1 cm incision was made over the PSIS for placement of the reference probes. Two trocar was placed into the PSIS 1 on each side. The reference probe was attached to the trocar of the reference apparatus. At this time the C-arm imaging was used to confirm AP and lateral of L4, L5, and S1 vertebrae and merged the C-arm imaging using the [employer] robotic navigation system with the CT of the lumbar spine. After successful merging was completed and confirmed, skin marker was used to camila out the skin incision using the [employer] robotic arm. Bilateral incision was made at this time. Using patient's previous scar incision was made over the L4, L5-S1 interval on the left side. Fascia was incised in line with skin incision. Patient's previously placed hardware over the L5-S1 level was identified by dissecting down to the level the hardware using a Bovie and a Watson. The locking caps which was removed using globus screwdriver. The locking katelynn was then removed from the tulips of the pedicle screws using a Aren. The pedicle screws were then removed using the screwdriver. The screws were found to have poor purchase due to hardware loosening and indicating pseudoarthrosis at L5-S1 level. Pre templated trajectory was used and guided using the [employer] robotic navigation system for left L4, L5 and S1 pedicle screws and right L4 , L5 and S1 pedicle screws placement. This was done by using the robotic arm to guide the high-speed bur to make a cortical entry point. Next a drill was placed also using the robotic arm and guided using the navigation system drilling partially through bilateral L4, L5, S1 pedicles. Next L4, L5, S1 pedicle screws it was pre templated and measured was placed onto the power catering truck driver and inserted into the pedicles bilaterally. After all 6 screws were placed C-arm imaging was taken of both AP and lateral to confirm the placement. Excellent placement of the screws were confirmed and a matched precisely with the pre planned screw placement using the navigation system. The loose screws at L5-S1 level were increased in diameter and all six screws had excellent purchase. MARs retractor was inserted using Momoxivation guidence. Globus MARS retractors was placed inside the incision and docked onto the L4 lamina. Using microsurgical technique and operating microscope, a L4 laminectomy and L4-5 facetectomy was performed using a Kerrison rongeur. The laminectomy and facetectomy was performed in order to decompress patient's cauda equina as well as the nerve roots exiting at the L4-5 level. Patient was found have severe lateral recess and neural foramen stenosis which was fully decompressed after the laminectomy facetectomy. More than 75% of the facets were removed during the process of decompression rendering L4-5 level grossly unstable and required a fusion procedure at the same time. The disc space at L4-5 was identified, and a total diskectomy was performed at L4-5 level. The endplates were decorticated using a rasp and shaver. The total diskectomy and decortication was performed at L4-5 level in order to to accomplish a L4-5 fusion. The local bone from the laminectomy and facetectomy was saved for local bone grafting. After the total diskectomy and decortication was completed, Trifecta bone graft material was combined with local bone that was harvested earlier. At this time, a separate skin is incision was made over the iliac crest. A Jamshidi needle was inserted into the iliac crest through a separate skin incision. 5 cc of bone marrow aspiration was obtained through the separate skin incision using a Jamshidi needle from the iliac crest. The bone marrow aspiration was combined with local bone and the Trifecta bone grafting material. The bone grafting material was placed into the L4-5 interbody space along with a expandable cage. The cages were expanded to its maximum height using the torque limiting screwdriver. The disc preparation as well as the cage insertion were also performed under navigation guidance. After the cage was placed, AP and lateral C-arm imaging was taken to confirm placement of the cage and excellent position was confirmed. The fusion mass on the right side of L5-S1was exposed by performing a right- sided hemilaminectomy at L5-S1 level. The hemilaminectomy was performed using the Kerrison rongeur to undercut the lamina as well removing additional epidural scar tissue for purpose of decompressing the epidural space. The fusion mass was explored and was found have visible motion indicating pseudoarthrosis. Globus MARS retractor was inserted and docked onto the L4-5 L5-S1 posterolateral gutter. Using the power drill, posterior-lateral decortication was performed at L4-5 L5-S1 level until bleeding cortical bone was identified. The remaining bone grafting material was placed into the L4-5 L5-S1 posterior lateral gutter he order to accomplish posterolateral fusion at the L4-5 L5-S1 level. At this time the tulips were attached to the L4-L5 and S1 pedicle screw shanks. This was done in L4-L5 S1 pedicles bilaterallyAfter measuring the length of the rods, they were inserted into the tulips of the pedicle screws and locked in place using locking caps and torque limiting screwdriver bilaterally. Total 6 caps and 2 titanium rods was used in order to complete the posterior instrumentation construct. After all the hardware was placed, and confirmed with AP and lateral C-arm imaging, the wound was then irrigated with sterile normal saline and packed with Ray-Jeronimo gauze for 3 min to accomplish hemostasis. After the gauze was removed the deep fascia was closed with #1 Vicryl suture. The subcutaneous layer was closed with 2-0 Vicryl. The skin was closed with skin deon. Patient tolerated the procedure well. There were no complications. Neuro monitoring system was used to monitor patient's neurologic status throughout entire procedure. There was no disturbance of the neural monitoring signals throughout the case. The Operation could not have been safely performed without compromising the technical result or length of the procedure, without the assistance of a skilled patient support assistant. The patient support assistant was medically necessary for proper positioning, retraction and manipulation of instruments, proper exposure, surgical preparation, and manipulation of tissue. Complications: none Post-operative Condition: stable Disposition: PACU Plan for aftercare: Admit to inpatient hospital
[2023-04-26] MEDS: HYDROMORPHONE 1 MG INJ IV (17:50)
[2023-04-26] MEDS: LORazepam 2 MG/ML INJ 0.25 MG IV (17:52)
[2023-04-26] MEDS: hydrOXYzine 50 MG/ML INJ 25 MG IM (17:54)
--- NOTE | 2023-04-26 18:28 | SUR.PHASEI ---
Report called to Arnold.
[2023-04-26] MEDS: OXYCODONE IR 5 MG TABLET PO (18:30)
[2023-04-26] MEDS: ACETAMINOPHEN 325 MG TABLET 650 MG PO (18:58)
[2023-04-26] MEDS: OXYCODONE IR 10 MG TABLET PO (18:58)
[2023-04-26] MEDS: LACTATED RINGERS 1,000 ML 125 ML IV (19:02)
[2023-04-26] MEDS: HYDROMORPHONE 0.5 MG INJ IV ×2 (20:12→23:13)
[2023-04-26] MEDS: DULOXETINE 30 MG CAPSULE 60 MG PO (20:16)
[2023-04-26] MEDS: FAMOTIDINE 20 MG TABLET PO (20:16)
[2023-04-26] MEDS: TRAZODONE 50 MG TABLET 100 MG PO (20:16)
[2023-04-26] MEDS: risperiDONE 1 MG TABLET 4 MG PO (20:16)
[2023-04-26] MEDS: ROPINIROLE 0.25 MG TABLET 0.5 MG PO (20:17)
[2023-04-26] MEDS: ATORVASTATIN 20 MG TABLET PO (20:17)
[2023-04-26] MEDS: hydrOXYzine pamoate 25 MG CAPSULE PO (20:17)
[2023-04-26] MEDS: CEFAZOLIN VIAL 3 GM in SODIUM CHLORIDE 0.9% 100 ML IV (22:24)
[2023-04-27] MEDS: LACTATED RINGERS 1,000 ML 125 ML IV ×2 (00:09→09:08)
[2023-04-27] MEDS: HYDROMORPHONE 0.5 MG INJ IV (01:37)
[2023-04-27 02:15] VITALS: BP 104/45; PULSE 66; RESP 20; TEMP 36.1; O2SAT 94
[2023-04-27] MEDS: OXYCODONE IR 10 MG TABLET PO ×6 (04:03→22:02)
[2023-04-27] MEDS: hydrOXYzine pamoate 25 MG CAPSULE PO ×2 (04:03→20:08)
[2023-04-27] MEDS: CEFAZOLIN VIAL 3 GM in SODIUM CHLORIDE 0.9% 100 ML IV (05:32)
[2023-04-27 06:13] LABS: Hemoglobin 11.3 g/dL (12.0-16.0)
[2023-04-27] MEDS: ACETAMINOPHEN 325 MG TABLET 650 MG PO ×2 (07:19→14:33)
[2023-04-27 08:27] VITALS: PULSE 76; O2SAT 92
[2023-04-27 08:30] VITALS: BP 105/48; PULSE 73; RESP 18; TEMP 37.1; O2SAT 91
[2023-04-27] MEDS: lamoTRIgine 100 MG TABLET 150 MG PO (08:59)
[2023-04-27] MEDS: DULOXETINE 30 MG CAPSULE 60 MG PO ×2 (08:59→20:08)
[2023-04-27] MEDS: DOCUSATE 100 MG CAPSULE PO (09:00)
[2023-04-27] MEDS: risperiDONE 1 MG TABLET 2 MG PO (09:00)
[2023-04-27] MEDS: CHOLECALCIFEROL (VITAMIN D3) 5,000 UNIT TABLET 5000 UNIT PO (09:00)
[2023-04-27] MEDS: FAMOTIDINE 20 MG TABLET PO ×2 (09:00→20:08)
--- NOTE | 2023-04-27 09:27 | CM.DANOTE ---
Addendum entered by YOANA Oleary 04/27/23 15:26: ADD: Per Bassam, already obtained insurance auth for SNF in case needed at discharge. Per Juan Alberto at [facility], they can accept as well if HH needed at d/c. BF Addendum entered by Serenity Kilgore, LOGISTICS TECHNICIAN 04/27/23 13:18: ADD: Per PT, pt was able to participate but limited today and painful and pending pt's progress recommending HH vs SNF and PT discussed with pt if she is safe for home then maybe son could take the angry dog for a walk during HH session and pt was agreeable. Pt also agreeable to SNF if needed but is hopeful for home. Pt has 2 levels of stairs into her apt but son can physically assist he is just on disability for mental health. SW made initial HH referral to [facility] based on pt's insurance and Vendor Calendar and also called [facility] and requested review for plan of HH vs SNF at d/c pending progress. F2F completed but will need to confirm pt's PCP. BF Original Note: Patient is a 58 yo female who was admitted on 04/26/23 for TLIF Robot. Pt has [facility] and [facility] for insurance and her PCP is not listed. EMR was reviewed. Per Mayank LAUREN, pt tolerated procedure well and has a hx of fibromyalgia and needs to work with PT/OT today to determine any needs. Pt was last admitted in December [address] Lucila Talley and was able to d/c home with assist. SW met bedside with pt and explained role and she confirms she still lives in [place] in an apartment with her adult son. Pt is independent with ADL's at baseline and does not use DME for ambulation but has a walker at home to use post surg. Pt states she typically uses Medicaid transport and the [employer] [facility]. Pt states her son is disabled but able to make meals, do chores, and light physical assist and she is hopeful to d/c home with his assist. Pt states he son does not drive and she was anticipating having to use the bus to get back and was not aware that SW could request Medicaid Taxi and this would be her preference. SW called [facility] and confirmed pt has transportation benefits through Medicaid. SW completed most of the Medicaid transport form and confirmed pt uses [facility] in [place]. SW inquired about HH and pt denies any hx of SNF or HH and states the barrier to HH is her dog at home as he is not very friendly with new people and if I lock him in a room he will bark and drive the neighbors crazy. Pt is hopeful HH is not needed. PT/OT ordered and pending. Plan: SW to follow closely for PT/OT eval and recommendations to confirm pt safe for d/c back to her apt with son assist and will need to fax Medicaid taxi form at d/c. YOANA Oleary Discharge Planning/Care Management Advanced directive, confirm from FAMILY Start: 04/26/23 19:53 Freq: Q24H Status: Active Protocol: Document 04/26/23 19:53 SR (Rec: 04/26/23 20:51 SR [id number]) Advance Directive, confirm on record Time 20:51 Person contacted Patient Copy received No CM Discharge Assessment Start: 04/27/23 09:23 Freq: Status: Active Protocol: Document 04/27/23 09:23 BF (Rec: 04/27/23 09:27 BF [id number]) Discharge Planning Assessment Assigned Human Service Specialist YOANA Benton DPOA/Assigned Designee Name informally son Amilcar Contact Information [phone] Advance Directives? No Advance Directives on File No History Provided By Patient,Medical Record Has Patient been admitted in last 30 No days? Prior Living Arrangements Apartment/Condo Household Members children Comment Pt and son live together in apt Type of transporation used prior to Medicaid Transport admit Independent with ADL's Yes Is patient alert and oriented? Yes Caregiver for Another No DME Already Rented / Owned FWW / Walker Comment Has one at home to use post surg Patient/Family Preference OP PT Therapy Barriers to Discharge No Comment will likely need Medicaid taxi at d/c Discharge Plan Home Community Services Physical Therapy Transportation Arrangement Likely needs Medicaid taxi or pt willing to do [employer] Referrals Initiated None needed Additional Comment Pending PT/OT eval Whiteboard Updated in Patient Room with Yes name and ext. # of Human Service Specialist Review Status In Process Please Provide Date Initial DC 04/27/23 Assessment Was Performed Next Review Type Continued Stay Review Pre-Anesthesia Assessment Start: 04/18/23 10:09 Freq: Status: Active Protocol: Document 04/18/23 10:09 TC (Rec: 04/18/23 10:26 TC [id number]) Pre-Anesthesia Assessment Preferred Name Mitch Patient Information Reviewed Via Phone Assessment Assessment Completed With Patient Diagnostic Results BMP/CMP,CBC,EKG Comment marija Primary Care Provider jaquan Medical Clearance Received Not Applicable Specialist Seen Orthopedist,Operations Specialists Primary Language Malay Preferred Language Malay [employer] Technical Assistant Required No Height 160.02 cm Weight 100.698 kg Body Mass Index (BMI) 39.3 Hearing Ability Normal Visual Impairment Partially Limited Visual Assist Glasses Dentition Type Full- Lower,Full- Upper Barriers to Learning None Other Aids Yes: CPAP Hx Anesthesia Reactions No: No issues with anesthesia, states it's difficult to control pain post-op Hx Family Anesthesia Reaction No Hx Malignant Hyperthermia No Hx Blood Transfusions No Hx Blood Transfusion Reaction No Anesthesia Review Requested No Armature Coil Winder No alcohol intake never Smoking Status Former smoker Tobacco type cigarettes how long ago did patient quit smoking Quit 04/17/21 Substance Use Type opiates Pain Present Pain Reported Comment neck, shoulders, back Musculoskeletal Symptoms Back Pain,Difficulty Walking History of Falling (Recent or History of No ) Patient is completely paralyzed or No completely immobile Prosthesis or Orthotic Device Front Wheel Walker Gait/Transferring Normal/bedrest/immobile Mental Status Oriented to own ability Does patient have CHUN/SOB No Hx Sleep Apnea Yes CPAP/BIPAP use prescribed and used routinely Will Bring CPAP/BIPAP DOS No: patient states she will not bring because she has brought in the past and n Currently Taking a Beta Duglas No Can You Climb a Flight of Stairs Without Yes: Occasional SOB w/stairs, SOB especially when carrying something Hx Chest Pain No Hx SOB No Hx Syncope or Dizziness No Anti-Coagulant Therapy No Has a Assistant Womens Volleyball Coach No Cardiac Testing No Hx Pacemaker/ICD No Pacemaker Rep Required? No Cardiac Clearance Received Not Applicable Diet Type At Home Lactose Intolerant Dysphagia No Gastrointestinal Symptoms Diarrhea Bladder Pattern Frequency,Urgency Urinary Catheter Present No Hx Urinary Self Catheterization No Comment ran out of her bladder med Diabetes No Patient No Lactating No Hx Drug Resistant Organism No Presence of External or Internal Medical Yes: Left knee, neck, CPAP/ Devices 2L02, lumbar Have you had any close contact with No someone diagnosed with COVID-19? Are you experiencing any of these No symptoms symptoms? Evaluation/Screening for possible COVID- Yes 19 infection completed? Received a COVID vaccine? Yes Received all doses? Yes Marital Status Single Lives With children Current Living Arrangements Apartment/Condo Number of Floors (Floors) Two Floors Number of Stairs To Enter/Railing? 2 flights with hand rail Support System Child/Children Does the Patient Have Assistance After Yes Surgery Patient Discharge Plan Description Return Home Feels Safe in Current Environment Yes Been Physically Hurt or Threatened By a No Person in Current Environment If Yes, Provider Notified No Do you have thoughts of harming yourself None or others? Are you currently considering suicide? No Do you have a plan to hurt yourself or No Plan others? Do You Have Any Spiritual Beliefs That No May Affect Your HC Choices? Do You Have Any Cultural Practices That No May Affect Your HC Choices? Who Can We Speak to About Patient's Care friends Identifying Code for Release of Patient declines Information Health Care Proxy/Next of Kin Amilcar Iraheta Health Care Proxy Emergency Contact Name Amilcar Iraheta Emergency Contact Advance Directives? No Power of Billing Services Manager No PAC Instructions Assistance for 24 hours post- op,Bring CPAP/BIPAP,Do not shave/clip surgical site, Durable medical equipment, Medications to take/avoid, Nasal antibiotic,No ETOH/ petroleum product on skin DOS, Pre-surgical wash,Sturdy shoes /comfortable clothes,Do not bring valuables and remove jewelry Stop Bang Assessment Do you often feel tired, fatigued or Yes sleepy during the daytime Has anyone ever observed you stop Yes breathing while sleeping? Do you have, or are you being treated Yes for, high blood pressure Is your BMI more than 35 kg/m2 Yes Age over 50 No Estimated neck circumference greater Yes than 40cm or 16in Gender male No Result Negative
--- NOTE | 2023-04-27 10:53 | PT.IIE ---
Current Diagnoses Spinal stenosis, lumbar region without neurogenic claudication (04/26/23) Arthrodesis status (04/26/23) Surgery Performed Operation Date: 04/26/23 12:45 Actual Procedures p L4-5 TLIF, L4-S1 PSF with revision hardware, robotic fusion - Tracey Gaytan MD Surgical History (Last Reviewed 04/27/23 @ 10:57 by Delano Ruiz PA-C) History of arthroplasty of left knee (08/02/17) History of cholecystectomy History of hernia repair History of hysterectomy History of lateral meniscus repair of left knee History of lumbar spinal fusion (12/14/20) History of neck surgery (~2003) History of open reduction and internal fixation (ORIF) procedure (06/06/17) History of surgery (05/18/18) Hx of fusion of cervical spine S/P epidural steroid injection (11/10/20) Medical History (Last Reviewed 04/27/23 @ 10:57 by Delano Ruiz PA-C) Anxiety Arthritis Bipolar disorder Chronic pain Depression DJD (degenerative joint disease) Failed total left knee replacement Fibromyalgia GERD (gastroesophageal reflux disease) Herniated disc History of migraine Hyperlipidemia Hypertension Impaired vision Incontinence Mixed sleep apnea Morbid obesity with BMI of 40.0-44.9, adult Nocturnal hypoxemia Numbness [place] on CPAP Pain 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 Postmenopausal Spinal stenosis of lumbar region with radiculopathy Weakness Physical Therapy Inpatient Evaluation/Re-Eval M1 PT/OT-IP Prior Functional Status Start: 04/27/23 12:37 Freq: NEEDED Status: Active Protocol: Document 04/27/23 12:37 AB (Rec: 04/27/23 12:58 AB [id number]) Medical Review Prior Functional Status Medical History Reviewed Yes Communication Pt is able to express all needs. Mobility and Gait Pt reports she ambulated independently, without AD. Activities of Daily Living and IADL's Pt reports she was IND with ADLs, though with increased pain, and her son helps her with heavier IADLs. Social History Household Members children Living Arrangements Apartment/Condo Home Environment Standard Height Toilet,Tub/ Shower Doors Home Equipment Front Wheel Walker,Straight Cane Additional Social History Comment Pt reports she has to ascend/ descend 2 flights of stairs to get to her apartment. She also states her son is able to assist her physically 27/02 if needed. M2 PT-IP Current Condition Start: 04/27/23 12:37 Freq: NEEDED Status: Active Protocol: Document 04/27/23 12:37 AB (Rec: 04/27/23 12:58 AB [id number]) Physical Therapy Current Condition Current Condition Evaluation Date 04/27/23 Treatment Diagnosis s/p lumbar TLIF L4-L5, L5-S1 Onset Date 04/26/23 M3 PT-IP Subjective Start: 04/27/23 12:37 Freq: NEEDED Status: Active Protocol: Document 04/27/23 12:37 AB (Rec: 04/27/23 12:58 AB [id number]) Subjective Physical Therapy Visit Type Type Initial Evaluation Visit Start Time 10:53 Visit Stop Time 11:41 Total Visit Minutes 48 Notes Pt presents semi supine in bed with all needs met. Physical Therapy Visit Comments Patient Comments The pt reports she is having some LBP but is agreeable to PT eval. Therapy Pain Assessment Pain When Pain Assessed At Rest Pain Present Pain Present Pain Reported Location Back Intensity 5 Scale Used Numeric (0 - 10) Pain Behaviors Facial Grimacing,Wincing Pain Management Techniques Apply Cold,Re-positioning M4 PT-IP Mobility and Gait Start: 04/27/23 12:37 Freq: NEEDED Status: Active Protocol: Document 04/27/23 12:37 AB (Rec: 04/27/23 12:58 AB [id number]) PT-Bed Mobility Assessment Rolling Type of Rolling Log Rolling Level of Assist Minimal Assistance,1 Person Assistance Supine to Sit Supine to Sit Moderate Assistance,1 Person Assistance,Head of Bed Elevated Sit to Supine Sit to Supine Moderate Assistance,1 Person Assistance,Head of Bed Elevated Scooting Scooting to Edge of Bed Minimal Assistance Scooting Up and Down in Bed Dependent PT-Transfer Assessment Sit to and From Stand Sit to and from Stand Contact Guard Assistance, Minimal Assistance,Use of Upper Extremities Equipment Transfer Assistive Device Gait Belt,Front Wheeled Walker Transfers Transfer Destination Bed Transfer Technique Stand Step Pivot Transfer Ability Level of Assist Independent,Contact Guard Assistance,Minimal Assistance, 1 Person Assistance,Use of Upper Extremities Comments Mobility Comments Pt was educated on surgical precautions and how to perform log roll and other functional mobility while maintaining these precautions. The pt requires continued education and practice of log roll technique, and proper hand placement and use of FWW with transfers due to poor technique shown. Gait Assessment Gait Gait Assistance Required: Standby Assistance Distance (Feet) 10 Assistive Devices Assistive Device Gait Belt,Front Wheeled Walker Gait Deviations General Gait Pattern Decreased Stride Length Factors Limiting Gait Function Factors Limiting Gait Function Decreased Activity Tolerance, Decreased Strength,Limited Range of Motion,Pain Comments Gait Comments Gait deviaitons are likely due to pain symptoms, as she reports pain up to 7-8/10 with ambulation. The pt also reports low back and BLE weakness with ambulation performed, requiring a seated rest break. Stair Climbing Assessment Comments Stair Climbing Comments Not assessed this session due to weakness, fatigue, pain. PT-Balance Assessment Sitting Balance and Reactions Static Sitting Balance Ability Normal Dynamic Sitting Balance Ability Good Standing Balance and Reactions Static Standing Balance Ability Good Dynamic Standing Balance Ability Fair Device Used FWW M5 PT-IP Objective Assessments Start: 04/27/23 12:37 Freq: NEEDED Status: Active Protocol: Document 04/27/23 12:37 AB (Rec: 04/27/23 12:58 AB [id number]) Orientation Orientation/Cognition Level of Alertness Alert Orientation Name,Age,Birthday,Month,Date, Year,Day of Week,Place, Situation Language Function Ability No Deficits Noted Safety Awareness Understands Safety Issues Memory Description No Deficits Noted Gross Range of Motion Upper Extremity ROM Assessment Within Functional Limits Lower Extremity ROM Assessment Within Functional Limits Strength Upper Extremity Strength Assessment Within Functional Limits Lower Extremity Strength Assessment Within Functional Limits M6 PT-IP Treatment Start: 04/27/23 12:37 Freq: NEEDED Status: Active Protocol: Document 04/27/23 12:37 AB (Rec: 04/27/23 12:58 AB [id number]) Physical Therapy Treatment Education Education Provided Precautions,Post-Op Packet, Safety Brace Education Patient Other Treatments Other Treatment Performed At end of session, the pt returned to bed and required maxA x 2 (dependent) to scoot up in bed. She was then assisted to a comfortable position with all needs met and call light within reach. M7 PT-IP Assessment and Plan Start: 04/27/23 12:37 Freq: NEEDED Status: Active Protocol: Document 04/27/23 12:37 AB (Rec: 04/27/23 12:58 AB [id number]) PT Summary Assessment and Plan Potential Rehabilitation Potential Fair Status of Condition at Evaluation Stable Summary Impairments Pain,ROM,Strength,Balance,Bed Mobility,Transfers,Gait, Activity Tolerance Assessment Summary Cava Iraheta is a 58 year old female patient who is s/p lumbar TLIF L4-L5, L5-S1 performed on 04/26/23. The pt currently demonstrates having deficits consistent with this surgical procedure including weakness, ROM deficits, pain symptoms and gait deviations. These impairments are limiting her ability to perform functional mobility with independence. She currently requires min-modA with basic bed mobility, but is dependent to scoot up/down in bed. The pt requires CGA-[place] for STS and transfers, and SBA for ambulation. She is able to ambulate 10ft with FWW before reporting fatigue and weakness requiring a seated rest break . Based on her current level of function, PT recommends home vs SNF based on her progress in therapy. The pt would benefit from skilled PT intervention during her hospital stay in order to help the pt improve to her highest level of function. Goals Bed Mobility Goal Standby Assistance Transfer Goal Standby Assistance,Front Wheeled Walker Gait Goal Standby Assistance,Front Wheel Walker Gait Distance 150 Other Goals Pt to be able to ascend/ descend 10 steps x 2 with 1 hand rail with SBA/CGA to demonstrate improved LE strength and endurance, in order to return to home safely . Days to Meet Goals 5 Frequency of Treatment Frequency Of Treatment Twice a Day Treatment Plan Physical Therapy Treatment Plan Bed Mobility Training,Transfer Training,Gait Training, Therapeutic Exercise,Balance Retraining,Post Op Education, Discharge Planning,Hot or Cold Pack,Neuromuscular Re-ed, Coordination Retraining,Manual Therapy Precautions Lumbar Precautions Log Roll,No Twisting,Limit Bending,Lifting Restriction of 10 lbs,Gait Belt above Incisional Area Recommendations To Nursing Amount of Assist Needed 1 Person Assist Discharge Recommendations PT Discharge Recommendations Home Health,Home vs SNF Other Discharge Recommendations Home with assistance and home health PT vs SNF is recommended due to environmental barriers and deficits noted today. Transportation Needs at Discharge Private Vehicle,Wheelchair/ Cabulance
--- NOTE | 2023-04-27 10:56 | PM.PNPO.1 ---
Subjective Subjective Date Patient Seen: 04/27/23 Time Patient Seen: 10:56 Interval history: Pain is [id number]. Denies fever or chills. No nausea or vomiting. Exam Vital Signs (past 8 hours): - 04/27/23 08:27 04/27/23 08:30 Temperature 98.7 F Pulse Rate 76 73 Respiratory Rate 18 Blood Pressure 105/48 L Pulse Oximetry 92 91 Oxygen Delivery Method Room Air Oxygen Flow Rate 0 Fraction of Inspired Oxygen 21 Fraction of Inspired Oxygen 21 SaO2/FiO2 Ratio 438 Oxygen Delivery Method Room Air Oxygen Flow Rate 0 Narrative Exam Narrative: 58-year-old female resting comfortably in bed in no apparent distress. Motor functions intact bilateral lower extremities. Sensation grossly intact to light touch bilateral lower extremities. Const General: cooperative and comfortable Nutritional Appearance: obese (BMI 39.3) Orientation: alert Resp Effort & Inspection: normal respiratory effort and able to speak in complete sentences Objective Labs 04/27/23 06:00 Labs: Laboratory Results - last 24 hr 04/27/23 06:00 Hgb 11.3 L Hct 34.0 L PFSH Medical History Anxiety Arthritis Bipolar disorder Chronic pain Depression DJD (degenerative joint disease) Failed total left knee replacement Fibromyalgia GERD (gastroesophageal reflux disease) Herniated disc History of migraine Hyperlipidemia Hypertension Impaired vision Incontinence Mixed sleep apnea Morbid obesity with BMI of 40.0-44.9, adult Nocturnal hypoxemia Numbness [place] on CPAP Pain 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 Postmenopausal Spinal stenosis of lumbar region with radiculopathy Weakness Surgical History History of arthroplasty of left knee (08/02/17) History of cholecystectomy History of hernia repair History of hysterectomy History of lateral meniscus repair of left knee History of lumbar spinal fusion (12/14/20) History of neck surgery (~2003) History of open reduction and internal fixation (ORIF) procedure (06/06/17) History of surgery (05/18/18) Hx of fusion of cervical spine S/P epidural steroid injection (11/10/20) Social History household members: children Smoking Status: Former smoker alcohol intake: never Assessment & Plan Post-op Postoperative Procedures: Procedures Operation Date: 04/26/23 12:45 Actual Procedure Side Surgeon p L4-5 TLIF, L4-S1 PSF with revision hardware, robotic fusion Tracey Gaytan MD Postoperative day: 1 Postoperative status narrative: Stable status post lumbar fusion Postoperative plan: routine post-op care Postoperative plan narrative: Mobilize with physical therapy Limit bending, twisting, lifting Multimodal pain management Disposition likely home today or tomorrow pending physical therapy
--- NOTE | 2023-04-27 14:10 | PT.IPTN ---
Current Diagnoses Spinal stenosis, lumbar region without neurogenic claudication (04/26/23) Arthrodesis status (04/26/23) Surgery Performed Operation Date: 04/26/23 12:45 Actual Procedures p L4-5 TLIF, L4-S1 PSF with revision hardware, robotic fusion - Tracey Gaytan MD Physical Therapy Treatment Note M2 PT-IP Current Condition Start: 04/27/23 12:37 Freq: NEEDED Status: Active Protocol: Document 04/27/23 12:37 AB (Rec: 04/27/23 12:58 AB [id number]) Physical Therapy Current Condition Current Condition Evaluation Date 04/27/23 Treatment Diagnosis s/p lumbar TLIF L4-L5, L5-S1 Onset Date 04/26/23 M3 PT-IP Subjective Start: 04/27/23 12:37 Freq: NEEDED Status: Active Protocol: Document 04/27/23 14:54 TS (Rec: 04/27/23 15:13 TS [id number]) Subjective Physical Therapy Visit Type Type Treatment Note Visit Start Time 14:10 Visit Stop Time 14:35 Total Visit Minutes 25 Number of ORIGINATION SPECIALIST Visits 1 Physical Therapy Visit Comments Patient Comments Pt found resting in bed, working with OT, agreeable to PT. Therapy Pain Assessment Location Back Intensity 7 Scale Used Numeric (0 - 10) Description With Movement Pain Behaviors Facial Grimacing,Moaning, Restlessness,Wincing Pain Management Techniques Apply Cold,Re-positioning M4 PT-IP Mobility and Gait Start: 04/27/23 12:37 Freq: NEEDED Status: Active Protocol: Document 04/27/23 14:54 TS (Rec: 04/27/23 15:13 TS [id number]) PT-Bed Mobility Assessment Rolling Type of Rolling Log Rolling,Roll to Left Level of Assist Minimal Assistance,1 Person Assistance Supine to Sit Supine to Sit Minimal Assistance,1 Person Assistance,Head of Bed Elevated Sit to Supine Sit to Supine Moderate Assistance,1 Person Assistance,Head of Bed Elevated Scooting Scooting to Edge of Bed Minimal Assistance Scooting Up and Down in Bed Dependent PT-Transfer Assessment Sit to and From Stand Sit to and from Stand Minimal Assistance,Use of Upper Extremities Equipment Transfer Assistive Device Gait Belt,Front Wheeled Walker Comments Mobility Comments Pt recalled 3/3 spinal precautions prior to mobility. Pt performed logroll Misha for coming onto side and cues were provided for handrail assist and pushing through R heel. Supine to sit Misha for uprighting trunk, cues were provided for swinging LEs over EOB and BUE support. Pt reported some dizziness, BP in sitting 171/58. Sit to stand from bed Misha w/FWW, pt had good standing balance. She ambulated ~10' to toiler CGA/ SBA w/FWW and a slow step to gait. After use of toilet sit to stand Misha with BUE support on FWW. She ambulated in room another ~15' SBA/CGA, pt fatigued and reported increasing pain, requested back to bed. Sit to supine ModA for LEs into bed, pt was cued for logroll and decreased twisting. Pt was left in bed with call light nearby, all needs met, RN notified of pt requesting pain meds. Gait Assessment Gait Gait Assistance Required: Standby Assistance,Contact Guard Assist Distance (Feet) 25 Assistive Devices Assistive Device Gait Belt,Front Wheeled Walker Gait Deviations General Gait Pattern Decreased Stride Length, Decreased Feet Clearance,Step- to Gait Factors Limiting Gait Function Factors Limiting Gait Function Decreased Activity Tolerance, Decreased Strength,Limited Range of Motion,Pain,Poor Balance,Poor Safety Awareness Comments Gait Comments See mobility comments Stair Climbing Assessment Comments Stair Climbing Comments Not assessed this session due to weakness, fatigue, pain. PT-Balance Assessment Sitting Balance and Reactions Static Sitting Balance Ability Normal Dynamic Sitting Balance Ability Good Standing Balance and Reactions Static Standing Balance Ability Good Dynamic Standing Balance Ability Fair Device Used FWW M5 PT-IP Objective Assessments Start: 04/27/23 12:37 Freq: NEEDED Status: Active Protocol: Document 04/27/23 12:37 AB (Rec: 04/27/23 12:58 AB [id number]) Orientation Orientation/Cognition Level of Alertness Alert Orientation Name,Age,Birthday,Month,Date, Year,Day of Week,Place, Situation Language Function Ability No Deficits Noted Safety Awareness Understands Safety Issues Memory Description No Deficits Noted Gross Range of Motion Upper Extremity ROM Assessment Within Functional Limits Lower Extremity ROM Assessment Within Functional Limits Strength Upper Extremity Strength Assessment Within Functional Limits Lower Extremity Strength Assessment Within Functional Limits M6 PT-IP Treatment Start: 04/27/23 12:37 Freq: NEEDED Status: Active Protocol: Document 04/27/23 14:54 TS (Rec: 04/27/23 15:13 TS [id number]) Physical Therapy Treatment Education Education Provided Precautions,Post-Op Packet, Safety M7 PT-IP Assessment and Plan Start: 04/27/23 12:37 Freq: NEEDED Status: Active Protocol: Document 04/27/23 14:54 TS (Rec: 04/27/23 15:13 TS [id number]) PT Summary Assessment and Plan Potential Rehabilitation Potential Fair Summary Impairments Pain,ROM,Strength,Balance,Bed Mobility,Transfers,Gait, Activity Tolerance Progress Towards Goals Progressing Toward Goals Assessment Summary Mitch made some progress with her mobility this session. She progressed her gait to ~25' in room CGA/SBA with use of FWW and a slow step to gait. She needs some cueing for logroll technique and bed mobility. She shows some awareness of precautions when performing mobility but requires cues for decreased twisting. PT is recommending return home with 24/7 assist vs SNF at this time. Caregiver training has been setup with son for 10:00AM tomorrow. If pt does well with son she should be able to return home where the son can provide 24/7 assist. Pt does not want to go to SNF. Goals Bed Mobility Goal Standby Assistance Transfer Goal Standby Assistance,Front Wheeled Walker Gait Goal Standby Assistance,Front Wheel Walker Gait Distance 150 Other Goals Pt to be able to ascend/ descend 10 steps x 2 with 1 hand rail with SBA/CGA to demonstrate improved LE strength and endurance, in order to return to home safely . Days to Meet Goals 5 Frequency of Treatment Frequency Of Treatment Twice a Day Treatment Plan Physical Therapy Treatment Plan Bed Mobility Training,Transfer Training,Gait Training, Therapeutic Exercise,Balance Retraining,Post Op Education, Discharge Planning,Hot or Cold Pack,Neuromuscular Re-ed, Coordination Retraining,Manual Therapy Precautions Lumbar Precautions Log Roll,No Twisting,Limit Bending,Lifting Restriction of 10 lbs,Gait Belt above Incisional Area Recommendations To Nursing Amount of Assist Needed 1 Person Assist Discharge Recommendations PT Discharge Recommendations Home with 24/7 Assist Available,SNF Rehab,Home vs SNF Other Discharge Recommendations Home with assistance vs SNF is recommended due to environmental barriers and deficits noted today. Transportation Needs at Discharge Private Vehicle,Wheelchair/ Cabulance
--- NOTE | 2023-04-27 14:37 | OT.IP.EVAL ---
Current Diagnoses Spinal stenosis, lumbar region without neurogenic claudication (04/26/23) Arthrodesis status (04/26/23) Surgery Performed Operation Date: 04/26/23 12:45 Actual Procedures p L4-5 TLIF, L4-S1 PSF with revision hardware, robotic fusion - Tracey Gaytan MD Past Medical History (Last Reviewed 04/27/23 @ 10:57 by Delano Ruiz PA-C) Anxiety Arthritis Bipolar disorder Chronic pain Depression DJD (degenerative joint disease) Failed total left knee replacement Fibromyalgia GERD (gastroesophageal reflux disease) Herniated disc History of migraine Hyperlipidemia Hypertension Impaired vision Incontinence Mixed sleep apnea Morbid obesity with BMI of 40.0-44.9, adult Nocturnal hypoxemia Numbness [place] on CPAP Pain 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 Postmenopausal Spinal stenosis of lumbar region with radiculopathy Weakness Surgical History (Last Reviewed 04/27/23 @ 10:57 by Delano Ruzi PA-C) History of arthroplasty of left knee (08/02/17) History of cholecystectomy History of hernia repair History of hysterectomy History of lateral meniscus repair of left knee History of lumbar spinal fusion (12/14/20) History of neck surgery (~2003) History of open reduction and internal fixation (ORIF) procedure (06/06/17) History of surgery (05/18/18) Hx of fusion of cervical spine S/P epidural steroid injection (11/10/20) Occupational Therapy Inpatient Evaluation/Re-Eval M1 PT/OT-IP Prior Functional Status Start: 04/27/23 14:43 Freq: NEEDED Status: Active Protocol: Document 04/27/23 14:05 [facility] (Rec: 04/27/23 15:08 [facility] [id number]) Medical Review Prior Functional Status Medical History Reviewed Yes Communication Pt is able to express all needs. Mobility and Gait Pt reports she ambulated independently, without AD. Activities of Daily Living and IADL's Pt reports she was IND with ADLs, though with increased pain, and her son helps her with heavier IADLs. Social History Household Members children Living Arrangements Apartment/Condo Number of Stairs To Enter/Railing? 2 flight with narrow bilateral rails to use Home Environment Standard Height Toilet,Tub/ Shower Home Equipment Front Wheel Walker,Straight Cane,Tub Transfer Bench Additional Social History Comment Pt reports she has to ascend/ descend 2 flights of stairs to get to her apartment. She also states her son is able to assist her physically 27/02 if needed. M2 OT-IP Current Condition Start: 04/27/23 14:43 Freq: Status: Active Protocol: Document 04/27/23 14:05 [facility] (Rec: 04/27/23 15:08 [facility] [id number]) Occupational Therapy Current Condition Current Condition Evaluation Date 04/27/23 Treatment Diagnosis S/P L4-5 TLIF, L4-5 PSF with revision Diagnosis Onset Date 04/26/23 Post Operative Precautions Lumbar Precautions Log Roll,No Twisting,Limit Bending,Lifting Restriction of 10 lbs,Gait Belt above Incisional Area M3 OT- IP Subjective and Pain Start: 04/27/23 14:43 Freq: Status: Active Protocol: Document 04/27/23 14:05 [facility] (Rec: 04/27/23 15:08 [facility] [id number]) OT- Subjective Occupational Therapy Visit Type Type Initial Evaluation Visit Start Time 14:05 Visit Stop Time 14:37 Total Visit Minutes 32 Occupational Therapy Visit Comments Patient Comments Pt agreed to get up. Patient/Caregiver Goals TO go home. OT Pain Assessment Pain When Pain Assessed During Mobility Pain Present Pain Present Pain Reported Location Back Intensity 7 Scale Used Numeric (0 - 10) M4 OT- IP ADL's Start: 04/27/23 14:43 Freq: Status: Active Protocol: Document 04/27/23 14:05 [facility] (Rec: 04/27/23 15:08 [facility] [id number]) OT [id number]-[id number] General Evaluation Self-Feeding Ability Independent OT ADL-Grooming Comments OT Grooming Comments Pt not wanting to do at this time. OT ADL-Oral Care Comments Oral Care Comments Pt refused. OT ADL-Dressing General Eval Lower Body Dressing Ability Maximum Assistance Comments OT Dressing Comments Pt needing assist for socks. Pt states does not have any LB dressing equipment at home and that her son will be able to assist with all her needs. OT ADL-Toileting General Evaluation Toileting Ability Standby Assistance,Moderate Assistance Areas Needing Assistance Perform Perineal Hygiene Comments OT Toileting Comments Pt able to wipe appropriately from the front but will need assist from behind after a bowel movement. Able to show pt option of possibly getting a toilet paper aid. In addition use of wet wipes will be helpful as well. OT ADL-Bathing Comments OT Bathing Comments Not performed M5 OT- IP IADL's Start: 04/27/23 14:43 Freq: Status: Active Protocol: Document 04/27/23 14:05 [facility] (Rec: 04/27/23 15:08 [facility] [id number]) OT-Instrumental Activities of Daily Living Deficits IADL Deficits Identified Deficits Home Safety Awareness Awareness of Need for Assistance at Home Good Awareness Ability to Problem Solve Emergency Able to Problem Solve Situations Home Safety Comments Pt has a supportive son who is able to assist her. M6 OT- IP Functional Cognition Start: 04/27/23 14:43 Freq: Status: Active Protocol: Document 04/27/23 14:05 [facility] (Rec: 04/27/23 15:08 [facility] [id number]) Cognitive Factors Limiting Selfcare Function Cognitive Ability Level of Alertness Alert Patient Orientation Name,Age,Birthday,Month,Date, Year,Day of Week,Place, Situation Attention Span Ability Capable of Focused Attention, Capable of Sustained Attention Ability to Follow Commands Able to Follow One Step Commands Safety Awareness Decreased Ability to Apply Precautions Cognitive Comments Cognitive Assessment Comments Pt needing reminders to follow her back precautions especially for no twisting. OT- Vision and Hearing OT- Hearing Assessment OT- Hearing Assessment WFL OT- Vision Assessment Visual Acuity Glasses All The Time Visual Attentiveness WFL Occular Pursuits WFL M7 OT- IP Mobility and Balance Start: 04/27/23 14:43 Freq: Status: Active Protocol: Document 04/27/23 14:05 [facility] (Rec: 04/27/23 15:08 [facility] [id number]) OT- Bed Mobility Assessment Supine to Sit Supine to Sit Assist Minimal Assistance Sit to Supine Sit to Supine Assist Minimal Assistance OT-Transfer Assessment Sit to and From Stand Sit to and from Stand Minimal Assistance,Moderate Assistance Transfers Transfer Ability Standby Assistance Technique Transfer Destination Bed,Chair,Toilet Transfer Technique Stand Pivot Devices Transfer Assistive Devices Gait Belt,Front Wheeled Walker Comments Mobility Comments MARIETTA to help get her trunk from side lying. MARIETTA to get her legs back into the bed as well. OT- Balance Assessment Sitting Balance and Reactions Static Sitting Balance Ability Good Dynamic Sitting Balance Ability Good Standing Balance and Reactions Static Standing Balance Ability Fair Dynamic Standing Balance Ability Fair M8 OT- IP Objective Assessments Start: 04/27/23 14:43 Freq: Status: Active Protocol: Document 04/27/23 14:05 [facility] (Rec: 04/27/23 15:08 [facility] [id number]) OT Gross Range of Motion Upper Extremity Range of Motion Assessment Within Functional Limits OT-Muscle Tone Assessment Muscle Tone WNL Yes M9 OT- IP Assessment and Plan Start: 04/27/23 14:43 Freq: Status: Active Protocol: Document 04/27/23 14:05 [facility] (Rec: 04/27/23 15:08 [facility] [id number]) OT Summary Assessment and Plan Potential Rehabilitation Potential Good Analytic Complexity at Evaluation Low Summary OT Impairments Pain,Strength,Balance, Functional Mobility,Grooming, Dressing,Toileting,Bathing, Toilet Transfers,Shower Transfers,Activity Tolerance Progress Towards Goals Progressing Toward Goals Assessment Summary Pt low complexity and main barriers are steps, needing assist to stand from lower surfaces and for ADL needs. Pt would benefit from getting a BSC, toilet a paper aid and LB dressing equipment. Pt insists her son to help her at home. Pt to go home with 24/7 available assist. Pt's neighbor to bring her son in tomorrow at 10AM for caregiver training. Goals Grooming Goal Independent Dressing Goal Moderate Assistance Toileting Goal Moderate Assistance Bathing Goal Moderate Assistance Toilet Transfer Goal Standby Assistance Shower Transfer Goal Standby Assistance Days to Meet Goals 2 Frequency of Treatment Frequency Of Treatment Once a Day Treatment Plan OT Treatment Plan ADL Training,Functional Mobility,Patient/Family Education,Discharge Planning Discharge Recommendations OT Discharge Recommendations Home with 24/7 Assist Available Home Equipment Needs LB dressing equipment, toilet paper aid, and BSC Transportation Needs at Discharge Private Vehicle
[2023-04-27 16:03] VITALS: BP 123/63; PULSE 87; RESP 18; TEMP 37.3; O2SAT 97
[2023-04-27] MEDS: ATORVASTATIN 20 MG TABLET PO (20:07)
[2023-04-27] MEDS: TRAZODONE 50 MG TABLET 100 MG PO (20:08)
[2023-04-27] MEDS: risperiDONE 1 MG TABLET 4 MG PO (20:08)
[2023-04-27] MEDS: ROPINIROLE 0.25 MG TABLET 0.5 MG PO (20:08)
[2023-04-27 20:32] VITALS: BP 126/48; PULSE 77; RESP 18; TEMP 35.7; O2SAT 93
[2023-04-28] MEDS: OXYCODONE IR 10 MG TABLET PO ×3 (02:19→10:17)
[2023-04-28] MEDS: ACETAMINOPHEN 325 MG TABLET 650 MG PO ×2 (02:20→10:17)
[2023-04-28] MEDS: HYDROMORPHONE 0.5 MG INJ IV (07:36)
[2023-04-28] MEDS: polyethylene glycoL 3350 17 GM POWD.PACK PO (07:36)
[2023-04-28] MEDS: risperiDONE 1 MG TABLET 2 MG PO (08:38)
[2023-04-28] MEDS: FAMOTIDINE 20 MG TABLET PO (08:38)
[2023-04-28] MEDS: lamoTRIgine 100 MG TABLET 150 MG PO (08:49)
[2023-04-28] MEDS: CHOLECALCIFEROL (VITAMIN D3) 5,000 UNIT TABLET 5000 UNIT PO (08:52)
[2023-04-28] MEDS: DOCUSATE 100 MG CAPSULE PO (08:52)
[2023-04-28] MEDS: DULOXETINE 30 MG CAPSULE 60 MG PO (08:52)
[2023-04-28 09:28] VITALS: BP 100/61; PULSE 86; RESP 18; TEMP 36.4; O2SAT 94
--- NOTE | 2023-04-28 10:15 | PT.IPTN ---
Current Diagnoses Spinal stenosis, lumbar region without neurogenic claudication (04/26/23) Arthrodesis status (04/26/23) Surgery Performed Operation Date: 04/26/23 12:45 Actual Procedures p L4-5 TLIF, L4-S1 PSF with revision hardware, robotic fusion - Tracey Gaytan MD Physical Therapy Treatment Note M2 PT-IP Current Condition Start: 04/27/23 12:37 Freq: NEEDED Status: Active Protocol: Document 04/27/23 12:37 AB (Rec: 04/27/23 12:58 AB [id number]) Physical Therapy Current Condition Current Condition Evaluation Date 04/27/23 Treatment Diagnosis s/p lumbar TLIF L4-L5, L5-S1 Onset Date 04/26/23 M3 PT-IP Subjective Start: 04/27/23 12:37 Freq: NEEDED Status: Active Protocol: Document 04/28/23 10:49 TS (Rec: 04/28/23 11:08 TS [id number]) Subjective Physical Therapy Visit Type Type Treatment Note Visit Start Time 10:15 Visit Stop Time 10:42 Total Visit Minutes 27 Number of BULLDOZER MECHANIC Visits 2 Physical Therapy Visit Comments Patient Comments Pt found resting in bed, family in room for caregiver training. Pt reports pain is the same as yesterday, would like to go home today. Therapy Pain Assessment Pain When Pain Assessed At Rest Pain Present Pain Present Pain Reported Location Back Intensity 6 Scale Used Numeric (0 - 10) Pain Behaviors Facial Grimacing,Wincing Pain Management Techniques Apply Cold,Re-positioning M4 PT-IP Mobility and Gait Start: 04/27/23 12:37 Freq: NEEDED Status: Active Protocol: Document 04/28/23 10:49 TS (Rec: 04/28/23 11:08 TS [id number]) PT-Bed Mobility Assessment Rolling Type of Rolling Log Rolling,Roll to Left Level of Assist Minimal Assistance,1 Person Assistance Sit to Supine Sit to Supine Moderate Assistance,1 Person Assistance,Head of Bed Elevated PT-Transfer Assessment Sit to and From Stand Sit to and from Stand Minimal Assistance,1 Person Assistance,Use of Upper Extremities Equipment Transfer Assistive Device Gait Belt,Front Wheeled Walker Comments Mobility Comments Pt found resting in bedside chair, recalled 3/3 spinal precautions prior to mobility. Son was instructed in and performed donning of gait belt prior to mobility. Sit to stand Misha from son with BUE support pushing from arms of chair and FWW, cues were provided to son for proper handplacement on belt. She ambulated ~150' CGA from son w /FWW and slow step to gait. She performed stairs x9 ascending/descending with CGA from son and B handrail assist . Cues were provided for sequencing of steps to pt and son. She ambulated back to room, sat on EOB. Sit to supine ModA from son for LEs into bed, cues were provided to son and pt for sequencing of logroll into bed. Pt was left in bed, with call light nearby, family in room, RN notified. Gait Assessment Gait Gait Assistance Required: Standby Assistance,Contact Guard Assist Distance (Feet) 150 Assistive Devices Assistive Device Gait Belt,Front Wheeled Walker Gait Deviations General Gait Pattern Decreased Stride Length, Decreased Feet Clearance,Step- to Gait Factors Limiting Gait Function Factors Limiting Gait Function Decreased Activity Tolerance, Decreased Strength,Limited Range of Motion,Pain,Poor Balance Comments Gait Comments See mobility comments Stair Climbing Assessment Evaluation Level of Assist On Stairs Contact Guard Assistance,1 Person Assistance Devices Stair Climbing Assistive Devices Left Railing,Right Railing Technique/Endurance Stair Climbing Direction Ascend and Descend Stair Climbing Technique Step Over Step,Step to Step Number of Steps Climbed 9 Stair Climbing Set # Repetitions (reps) 3 PT-Balance Assessment Sitting Balance and Reactions Static Sitting Balance Ability Good Dynamic Sitting Balance Ability Good Standing Balance and Reactions Static Standing Balance Ability Good Dynamic Standing Balance Ability Fair Device Used FWW M5 PT-IP Objective Assessments Start: 04/27/23 12:37 Freq: NEEDED Status: Active Protocol: Document 04/27/23 12:37 AB (Rec: 04/27/23 12:58 AB [id number]) Orientation Orientation/Cognition Level of Alertness Alert Orientation Name,Age,Birthday,Month,Date, Year,Day of Week,Place, Situation Language Function Ability No Deficits Noted Safety Awareness Understands Safety Issues Memory Description No Deficits Noted Gross Range of Motion Upper Extremity ROM Assessment Within Functional Limits Lower Extremity ROM Assessment Within Functional Limits Strength Upper Extremity Strength Assessment Within Functional Limits Lower Extremity Strength Assessment Within Functional Limits M6 PT-IP Treatment Start: 04/27/23 12:37 Freq: NEEDED Status: Active Protocol: Document 04/28/23 10:49 TS (Rec: 04/28/23 11:08 TS [id number]) Physical Therapy Treatment Education Education Provided Precautions,Post-Op Packet, Safety M7 PT-IP Assessment and Plan Start: 04/27/23 12:37 Freq: NEEDED Status: Active Protocol: Document 04/28/23 10:49 TS (Rec: 04/28/23 11:08 TS [id number]) PT Summary Assessment and Plan Potential Rehabilitation Potential Fair Summary Impairments Pain,ROM,Strength,Balance,Bed Mobility,Transfers,Gait, Activity Tolerance Progress Towards Goals Progressing Toward Goals Assessment Summary Mitch is making progress with her mobility this morning. She is Misha to stand from lower surface of chair with FWW. She progressed her gait to ~150' CGA from son with FWW and a slow step to gait. She progressed to stairs x9 ascending/descending CGA with B handrail. She is slow to take steps on stairs due to pain, did not have any buckling or LOB. She had some worry about doing stairs at home due to how long it would take her, therapist discussed the option of going to rehab but pt declined. PT is recommending home with 24/7 assist vs SNF at this time. Her son was present for caregiver training and was educated on/performed donning of gait belt, assisting pt with bed mobility, gait and stairs. Son and pt did well together and is safe to d/c home with 24/7 support. She could benefit from rehab to progress her functional mobility and activity tolerance before going home. Goals Bed Mobility Goal Standby Assistance Transfer Goal Standby Assistance,Front Wheeled Walker Gait Goal Standby Assistance,Front Wheel Walker Gait Distance 150 Other Goals Pt to be able to ascend/ descend 10 steps x 2 with 1 hand rail with SBA/CGA to demonstrate improved LE strength and endurance, in order to return to home safely . Days to Meet Goals 5 Frequency of Treatment Frequency Of Treatment Twice a Day Treatment Plan Physical Therapy Treatment Plan Bed Mobility Training,Transfer Training,Gait Training, Therapeutic Exercise,Balance Retraining,Post Op Education, Discharge Planning,Hot or Cold Pack,Neuromuscular Re-ed, Coordination Retraining,Manual Therapy Other Recommendations and Next Treatment Gait focusing on PWB Focus Precautions Lumbar Precautions Log Roll,No Twisting,Limit Bending,Lifting Restriction of 10 lbs,Gait Belt above Incisional Area Recommendations To Nursing Amount of Assist Needed 1 Person Assist Discharge Recommendations PT Discharge Recommendations Home with 24/7 Assist Available,SNF Rehab,Home vs SNF Other Discharge Recommendations Home with assistance vs SNF is recommended due to environmental barriers and deficits noted today. Transportation Needs at Discharge Private Vehicle,Wheelchair/ Cabulance
--- NOTE | 2023-04-28 10:19 | OT.IP.TRT ---
Current Diagnoses Spinal stenosis, lumbar region without neurogenic claudication (04/26/23) Arthrodesis status (04/26/23) Surgery Performed Operation Date: 04/26/23 12:45 Actual Procedures p L4-5 TLIF, L4-S1 PSF with revision hardware, robotic fusion - Tracey Gaytan MD Occupational Therapy Treatment Note M2 OT-IP Current Condition Start: 04/27/23 14:43 Freq: Status: Active Protocol: Document 04/27/23 14:05 [facility] (Rec: 04/27/23 15:08 [facility] [id number]) Occupational Therapy Current Condition Current Condition Evaluation Date 04/27/23 Treatment Diagnosis S/P L4-5 TLIF, L4-5 PSF with revision Diagnosis Onset Date 04/26/23 Post Operative Precautions Lumbar Precautions Log Roll,No Twisting,Limit Bending,Lifting Restriction of 10 lbs,Gait Belt above Incisional Area M3 OT- IP Subjective and Pain Start: 04/27/23 14:43 Freq: Status: Active Protocol: Document 04/28/23 10:20 [facility] (Rec: 04/28/23 10:27 [facility] [id number]) OT- Subjective Occupational Therapy Visit Type Type Treatment Note Visit Start Time 10:03 Visit Stop Time 10:19 Total Visit Minutes 16 Occupational Therapy Visit Comments Patient Comments Pt wanting to get dressed so able to go home. Patient/Caregiver Goals To go home. OT Pain Assessment Pain When Pain Assessed At Rest Pain Present Pain Present Pain Reported Location Back Intensity 6 Scale Used Numeric (0 - 10) M4 OT- IP ADL's Start: 04/27/23 14:43 Freq: Status: Active Protocol: Document 04/28/23 10:20 [facility] (Rec: 04/28/23 10:27 [facility] [id number]) OT [id number]-Vgicgrz General Evaluation Self-Feeding Ability Independent OT ADL-Grooming Comments OT Grooming Comments Pt not wanting to do at this time. OT ADL-Oral Care Comments Oral Care Comments Not performed. OT ADL-Dressing General Eval Upper Body Dressing Ability Independent Lower Body Dressing Ability Minimal Assistance Comments OT Dressing Comments Able to use the hat measurer to be able to do her LB dressing needs. OT ADL-Toileting Comments OT Toileting Comments Still recommended that pt get a toilet paper aid and BSC. OT ADL-Bathing Comments OT Bathing Comments Pt's son states they no longer have the tub bench and pt will benefit from getting shower chair /tub bench. M5 OT- IP IADL's Start: 04/27/23 14:43 Freq: Status: Active Protocol: Document 04/27/23 14:05 [facility] (Rec: 04/27/23 15:08 [facility] [id number]) OT-Instrumental Activities of Daily Living Deficits IADL Deficits Identified Deficits Home Safety Awareness Awareness of Need for Assistance at Home Good Awareness Ability to Problem Solve Emergency Able to Problem Solve Situations Home Safety Comments Pt has a supportive son who is able to assist her. M6 OT- IP Functional Cognition Start: 04/27/23 14:43 Freq: Status: Active Protocol: Document 04/28/23 10:20 [facility] (Rec: 04/28/23 10:27 [facility] [id number]) Cognitive Factors Limiting Selfcare Function Cognitive Comments Cognitive Assessment Comments Pt able to incorporate her back precautions while getting dressed with good safety. Pt will have to supervision her son to be able to provide assist to her especially during ADl needs. M7 OT- IP Mobility and Balance Start: 04/27/23 14:43 Freq: Status: Active Protocol: Document 04/28/23 10:20 [facility] (Rec: 04/28/23 10:27 [facility] [id number]) OT-Transfer Assessment Sit to and From Stand Sit to and from Stand Standby Assistance Comments Mobility Comments Pt able to come to stand with SBA on her own to the [facility]. OT- Balance Assessment Sitting Balance and Reactions Static Sitting Balance Ability Good Dynamic Sitting Balance Ability Good Standing Balance and Reactions Static Standing Balance Ability Good M8 OT- IP Objective Assessments Start: 04/27/23 14:43 Freq: Status: Active Protocol: Document 04/27/23 14:05 [facility] (Rec: 04/27/23 15:08 [facility] [id number]) OT Gross Range of Motion Upper Extremity Range of Motion Assessment Within Functional Limits OT-Muscle Tone Assessment Muscle Tone WNL Yes M9 OT- IP Assessment and Plan Start: 04/27/23 14:43 Freq: Status: Active Protocol: Document 04/28/23 10:20 [facility] (Rec: 04/28/23 10:27 [facility] [id number]) OT Summary Assessment and Plan Potential Rehabilitation Potential Good Analytic Complexity at Evaluation Low Summary OT Impairments Pain,Strength,Balance, Functional Mobility,Grooming, Dressing,Toileting,Bathing, Toilet Transfers,Shower Transfers,Activity Tolerance Progress Towards Goals Progressing Toward Goals Assessment Summary Pt looking to go home and will benefit from getting LB dressing equipment, BSC, shower chair/tub bench, in addition to a toilet paper aid . Pt states her son can just assist with all her needs. Pt wanting to go home. Goals Grooming Goal Independent Dressing Goal Moderate Assistance Toileting Goal Moderate Assistance Bathing Goal Moderate Assistance Toilet Transfer Goal Standby Assistance Shower Transfer Goal Standby Assistance Days to Meet Goals 5 Frequency of Treatment Frequency Of Treatment Once a Day Treatment Plan OT Treatment Plan ADL Training,Functional Mobility,Patient/Family Education,Discharge Planning Discharge Recommendations OT Discharge Recommendations Home with 24/ Assist Available,SNF Rehab Other Discharge Recommendations If pt not able to do the steps would benefit from skilled rehab. Home Equipment Needs LB dressing equipment, toilet paper aid, and BSC, shower chair/tub bench Transportation Needs at Discharge Private Vehicle,Wheelchair/ Cabulance
--- NOTE | 2023-04-28 10:55 | P.DS_ITS ---
History of Present Illness History of Present Illness Date Patient Seen: 04/28/23 Time Patient Seen: 08:00 Chief complaint: [place]lam Intrbody Fus./Laminotomy -Robot Narrative: Pain is been mild with occasional severe pain depending on activity level. Denies fever or chills. Patient has assistance at. Discharge Providers Provider Date of admission: 04/26/23 11:51 Discharge Date: 04/28/23 Primary care physician: Doctor Ramesh MD Consults: 04/26/23 18:46 Consult to Occupational Therapy Evaluate & Treat Comment: Physician Instructions: Evaluate and treat Consult to Physical Therapy Evaluate & Treat Comment: Physician Instructions: Evaluate and Treat Discharge provider: Delano Ruiz PA-C Summary Hospital Course Discharge Diagnosis: 1. History of L5-S1 fusion with hardware loosening 2. L4-5 spinal stenosis with neurogenic claudication. Hospital Course: 1. L4-5 posterolateral and posterior interbody fusion 2. L4-5 posterior interbody cage placement 3. L5-S1 posterior non-segmental instrumentation removal 4. L5-S1 revision laminectomy with exploration of fusion 5. L4-5, L5-S1 posterior segmental instrumentation with pedicle screw placement 6. L5-S1 posterolatearl fusion 7. [place] of bone marrow from iliac crest through a separate incision 8. Utilization of microsurgical technique and operating microscope 9. Utilization of robotic assisted fusion Same procedure as scheduled: Yes Indications: Patient has been having chronic back pain and worsening lumbar radiculopathy and symptoms of neurogenic claudication.? Patient had previous lumbar fusion surgery and has been doing well until recently.? Additional imaging with CT shows loosened hardware and possible pseudoarthrosis at the L5-S1 level. Patient failed multiple conservative management with worsening pain weakness and numbness in her lower extremity.? Patient has been having difficulty performing activity of daily living.? After discussing risks benefits of treatment options, patient elected proceed with surgery. Surgeon: Tracey Gaytan Aircraft Assembler: Ying Foster Click Yes if Unassisted: No Anesthesia Type: General Patient admitted to the hospital for the above-mentioned procedure. Patient consented to the same. Patient underwent lumbar fusion on April 26, 2023. Patient back in her room recovering well as in stable condition. Patient may be weight-bearing as tolerated, limit bending, twisting, lifting. Multimodal pain management. Discharge home today. Exam Vital Signs (past 8 hours): - 04/28/23 09:28 Temperature 97.6 F Pulse Rate 86 Respiratory Rate 18 Blood Pressure 100/61 Pulse Oximetry 94 Fraction of Inspired Oxygen 21 SaO2/FiO2 Ratio 438 Oxygen Delivery Method Room Air Oxygen Flow Rate 0 Narrative Exam Narrative: 58-year-old in no apparent distress. Motor functions intact bilateral lower extremities. Sensation grossly intact to light touch bilateral lower extremit ies. Const General: cooperative Nutritional Appearance: obese (BMI 39.3) Orientation: alert Resp Effort & Inspection: normal respiratory effort and able to speak in complete sentences Objective Labs 04/27/23 06:00 PFSH Medical History Anxiety Arthritis Bipolar disorder Chronic pain Depression DJD (degenerative joint disease) Failed total left knee replacement Fibromyalgia GERD (gastroesophageal reflux disease) Herniated disc History of migraine Hyperlipidemia Hypertension Impaired vision Incontinence Mixed sleep apnea Morbid obesity with BMI of 40.0-44.9, adult Nocturnal hypoxemia Numbness [place] on CPAP Pain 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 Postmenopausal Spinal stenosis of lumbar region with radiculopathy Weakness Surgical History History of arthroplasty of left knee (08/02/17) History of cholecystectomy History of hernia repair History of hysterectomy History of lateral meniscus repair of left knee History of lumbar spinal fusion (12/14/20) History of neck surgery (~2003) History of open reduction and internal fixation (ORIF) procedure (06/06/17) History of surgery (05/18/18) Hx of fusion of cervical spine S/P epidural steroid injection (11/10/20) Social History household members: children Smoking Status: Former smoker alcohol intake: never Discharge Assessment & Plan Assessment and Plan Assessment: Patient progressing as expected status post lumbar fusion Plan of Treatment: Weight-bearing as tolerated, limit bending, twisting, lifting Multimodal pain management Follow up in Orthopedic Clinic in 2 weeks Discharge home today in stable condition Discharge Plan Discharge Plan Patient Disposition: Home Discharge orders & Medications Prescriptions: New acetaminophen 325 mg Tablet 650 mg PO Q6H PRN (Reason: Fever/Mild Pain (1-3)) Qty: 60 0RF docusate sodium 100 mg Capsule 100 mg PO BID Qty: 20 0RF oxycodone 10 mg Tablet 10 mg PO Q3H PRN (Reason: Pain, Severe (7-10)) Qty: 40 0RF Continued albuterol sulfate [Ventolin HFA] 90 MCG/PUFF HFA aerosol inhaler 2 puff INH PRN PRN (Reason: Wheezing) Qty: 0 risperidone [Risperdal] 2 MG tablet 2 mg PO DIRECTED Qty: 0 Patient Comments: 2mg qam, 4mg qpm duloxetine 60 MG capsule,delayed release(DR/EC) 60 mg PO BID Qty: 0 valacyclovir [Valtrex] 500 mg Tablet 500 mg PO BID PRN (Reason: Breakouts) famotidine 20 mg Tablet 20 mg PO BID ropinirole 0.25 mg Tablet 0.5 mg PO BEDTIME mirabegron 25 mg Tablet Extended Release 24 Hr 50 mg PO BID lamotrigine 150 mg tablet 150 mg PO DAILY trazodone 100 mg Tablet 100 mg PO BEDTIME simvastatin 40 mg Tablet 40 mg PO BEDTIME hydroxyzine pamoate 25 mg Capsule 25 mg PO BEDTIME cholecalciferol (vitamin D3) [Vitamin D3] 5,000 unit Tablet 5,000 unit PO DAILY aspirin 81 mg Capsule 81 mg PO DAILY hydroxyzine pamoate 25 mg Capsule 25 mg PO Q6HR PRN (Reason: Pain/muscle spasm/nausea) Qty: 40 0RF Patient Comments: 1 in am, 2 in pm Atrovent HFA 17 mcg/actuation HFA aerosol inhaler 1 puff inhalation DAILY Discontinued acetaminophen 325 mg Tablet 650 mg PO Q6HR PRN (Reason: Pain, Mild (1-3)) Qty: 90 0RF oxycodone-acetaminophen 7.5-325 mg tablet 1 tab PO QID Patient Comments: TAKE 1 TABLET BY MOUTH FOUR TIMES DAILY Follow up/Referrals: Tracey Gaytan MD [Physician] - (Two weeks as scheduled) Doctor Chandler MD [Primary Care Provider] - Diet/Activity/Treatments Diet: Diet as Tolerated Activity: Weight-bearing as tolerated, limit bending, twisting, lifting Cold/Heat Therapy: Ice to back as needed Skin/Wound/Dressing Care Report to your healthcare provider any signs of infection, such as:: chills, fev er, night sweats, increased pain, unusual drainage and unusual redness Dressing: Keep dressing clean and dry Visit Report/Discharge Packet Instructions: DI for Prescription Opioid Use, DI for Transforaminal Lumbar Interbody Fusion Stand Alone Forms: Patient Portal/API, Stroke Signs & Symptoms, Surgery Discharge Discharge Data Primary Care Provider: Miscellaneous,Doctor
--- NOTE | 2023-04-28 12:33 | CM.DPC ---
DCP Discharge Home Per Ortho PA, pt medically stable to discharge home today and outpt follow up and no identified barriers to discharge. Per PROFESSOR OF FOREST PLANNING, pt ambulated well and recommend home with HH. SW met bedside with pt, adult son, mother along with PROFESSOR OF [employer]EST PLANNING and pt confirms that she does not feel HH will be manageable with her angry dog and plans on Ortho f/u appointment and outpt PT after discharge. Family confirms they are comfortable with transporting pt home today and assisting as needed. LITZY updated RN as well. LITZY updated [facility] that SNF no longer needed and CRISTAL Solomon updated Juan Alberto at [facility] that pt declines HH at this time. Plan: Patient to discharge home today via family POV and outpt f/u with Ortho and outpt PT. YOANA Oleary
== END 2023-04-28 11:52 | disposition home or self-care (01) | DRG 454 ==
PROVIDERS: Admitting Provider Orthopaedic Surgery Orthopaedic Surgery of the Spine; Referring Provider Orthopaedic Surgery Orthopaedic Surgery of the Spine; Visit Provider Orthopaedic Surgery Orthopaedic Surgery of the Spine
PROC: 0SG00AJ Fusion of Lumbar Vertebral Joint with Interbody Fusion Device, Posterior Approach, Anterior Column, Open Approach (ICD-10-PCS; principal; 2023-04-26 12:45)
DX: M48.062 Spinal stenosis, lumbar region with neurogenic claudication (principal); M96.0 Pseudarthrosis after fusion or arthrodesis; T84.038A Mechanical loosening of other internal prosthetic joint, initial encounter; M96.1 Postlaminectomy syndrome, not elsewhere classified; F31.9 Bipolar disorder, unspecified; I10 Essential (primary) hypertension; E78.5 Hyperlipidemia, unspecified; Z87.891 Personal history of nicotine dependence; Z98.1 Arthrodesis status
CPT/HCPCS: 36415; 72100; 76000; 85014; 85018; 97116; 97162; 97165; 97530; 97535; A9270; C1713; C9290; J0171; J0330; J0690; J1100; J1170; J2060; J2250; J2405; J2704; J3010; J3410

== ENCOUNTER 2023-05-24 13:30 | Day surgery (SDC) | payer MEDICARE, MEDICAID, SELFPAY ==
[2023-04-26 19:47] VITALS: BMI 39.3
[2023-05-23 15:13] VITALS: BMI 38.0
[2023-05-24] VITALS (15 sets, daily range): BP systolic 111–153; BP diastolic 37–70; PULSE 75–90; RESP 12–20; TEMP 36.2–36.7; O2SAT 90–98; BMI 39.3
[2023-05-24] MEDS: LACTATED RINGERS 1,000 ML 42 ML IV (16:00)
--- NOTE | 2023-05-24 16:04 | PM.PREOP ---
Pre-operative Note Interval Note History & Physical reviewed/Exam performed by Physician: Yes Changes to H&P: No
--- NOTE | 2023-05-24 17:41 | P.OP_ITS ---
Operative Date/Time/Diagnoses Date of procedure: 05/24/23 Time of procedure: 16:30 Pre-op diagnosis: 1. Lumbar wound seroma and infection Post-op diagnosis: same Procedure & Clinicians Procedure: 1. Lumbar wound irrigation and debridement of skin, fascia and muscle 2. Primary wound closure Same procedure as scheduled: Yes Indications: Ms. Iraheta is 3 weeks post lumbar fusion surgery. She has been doing well until 5 days ago. She has increased swelling, pain to her right side incision. She went to ER and had bed side I&D at ER and was in structed for f/u with me. Patient was seen yesterday and was found to have right sided wound induration with small amount of purulent wound drainage at where the ER performed the I&D. Patient has no systemic symptoms with no fevers or chills. Surgeon: Tracey Gaytan Diamond Die Driller: Kanika Petty Click Yes if Unassisted: No Anesthesia Type: General Operative Notes Closure Type: primary Specimen(s): none sent Estimated Blood Loss (mL): 10 Blood products transfused: none Procedure in detail: Patient was seen in the preoperative area. Risks and benefits of the surgery was discussed with the patient. Informed consent was obtained from the patient and placed in the chart. Surgical site was marked. Patient was taken to the operative room. General anesthesia was administered. Patient was placed into a prone position on the [place] table. Patient's back was then prepped and draped in the sterile fashion. Time-out was performed at this time. Patient's right-sided incision was inspected. There is a 0.5 in long packed wound in the middle of the incision. There is minimal drainage. There is exposed granulation tissue. There is no cellulitis. There is significant induration on palpation. The wound was then extended cephalad and caudally by another inch in order to expose the full extent of the involvement. Once incision was made past the subcutaneous layer, copious amount of seroma was able to be expressed from the subcutaneous tissue from patient's wound. Approximately 200 cc of seroma was able to be expressed from the wound. The seroma was dark yellow in color and semi transparent with no foul odor. The liquid was semi transparent and non viscous in nature. The wound was inspected again. The deep fascial layer is intact with no exposed hardware. At this time using a 10 blade as well as a Watson, unhealthy appearing tissue was excised including skin subcutaneous tissue and muscle fascia. After excision all debridement was completed the wound was irrigated copiously with 3 L of sterile normal saline with gentamicin. After the irrigation and debridement was completed the wound was then re-examined. Healthy-appearing tissue was visible on all surfaces of the wound. A Hemovac drain was placed in the deep subcutaneous layer. The drain was sewn in with 2-0 silk suture. #1 Nylon suture was used to close the wound in vertical mattress fashion in interrupted fashion. Hernando then was placed between the nylon vertical mattress sutures. The wound was closed without any difficulty and without added stress the skin. At this time a sterile dressing was applied the patient's wound/incision. Patient was then woken up from anesthesia and transferred recovery room stable condition. There were no complications. The Operation could not have been safely performed without compromising the technical result or length of the procedure, without the assistance of a skilled certified ophthalmic surgical assistant. The certified ophthalmic surgical assistant was medically necessary for proper positioning, retraction and manipulation of instruments, proper exposure, surgical preparation, and manipulation of tissue. The drain will be discontinued on POD#1 and patient will be discharged on POD#1. Complications: none Post-operative Condition: stable Disposition: PACU Plan for aftercare: Admit for over night observation and IV antibiotics
[2023-05-24] MEDS: cefTRIAXone 1,000 MG in SODIUM CHLORIDE 0.9% 100 ML 200 MG IV (17:53)
[2023-05-24] MEDS: HYDROMORPHONE 1 MG INJ IV ×2 (18:12→18:21)
[2023-05-24] MEDS: hydrOXYzine 50 MG/ML INJ 25 MG IM (18:13)
--- NOTE | 2023-05-24 19:08 | PC.NURSE ---
Postop Note Patient arrived to room at 1900. Alert and oriented x3. Reports pain 5/10 to lower back, assisted to reposition. Dressing is C/D/I to low back with H/V, compressed and draining sanguinous fluid. Oxygen sats 92-94% RA, using IS. Oriented to room and call light/tv/call light controls. Call light within reach.
[2023-05-24] MEDS: OXYCODONE IR 10 MG TABLET PO (19:57)
[2023-05-24] MEDS: LACTATED RINGERS 1,000 ML 125 ML IV (21:20)
[2023-05-24] MEDS: ROPINIROLE 0.25 MG TABLET 0.5 MG PO (21:34)
[2023-05-24] MEDS: TRAZODONE 50 MG TABLET 100 MG PO (21:35)
[2023-05-24] MEDS: ATORVASTATIN 20 MG TABLET PO (21:35)
[2023-05-24] MEDS: DULOXETINE 30 MG CAPSULE 60 MG PO (21:35)
[2023-05-24] MEDS: ONDANSETRON 4 MG/2 ML INJ IV (21:35)
[2023-05-24] MEDS: FAMOTIDINE 20 MG TABLET PO (21:35)
[2023-05-24] MEDS: risperiDONE 1 MG TABLET 4 MG PO (21:47)
[2023-05-25] VITALS: BP 112/60; PULSE 67; RESP 18; TEMP 36.3; O2SAT 91
[2023-05-25] MEDS: HYDROMORPHONE 0.5 MG INJ IV (00:08)
[2023-05-25] MEDS: LACTATED RINGERS 1,000 ML 125 ML IV (00:15)
[2023-05-25 04:00] VITALS: BP 120/64; PULSE 64; RESP 18; TEMP 36.2; O2SAT 91
[2023-05-25] MEDS: OXYCODONE IR 10 MG TABLET PO ×2 (06:44→09:59)
[2023-05-25 08:00] VITALS: BP 138/94; PULSE 80; RESP 18; O2SAT 97
[2023-05-25] MEDS: lamoTRIgine 100 MG TABLET 150 MG PO (08:26)
[2023-05-25] MEDS: CHOLECALCIFEROL (VITAMIN D3) 5,000 UNIT TABLET 5000 UNIT PO (08:26)
[2023-05-25] MEDS: DULOXETINE 30 MG CAPSULE 60 MG PO (08:26)
[2023-05-25] MEDS: FAMOTIDINE 20 MG TABLET PO (08:26)
[2023-05-25] MEDS: OXYBUTYNIN 5 MG ER TAB 10 MG PO (08:27)
[2023-05-25] MEDS: ACETAMINOPHEN 325 MG TABLET 650 MG PO (08:27)
--- NOTE | 2023-05-25 10:38 | OT.IP.EVAL ---
Current Diagnoses Infection following a procedure, other surgical site, initial encounter (05/24/23) Surgery Performed Operation Date: 05/24/23 14:45 Actual Procedures p Incision and Drainage Wound/Spine - Tracey Gaytan MD Past Medical History (Last Updated 05/23/23 @ 15:21 by Tamika Braxton, RN) Anxiety Arthritis Bipolar disorder Chronic pain COPD (chronic obstructive pulmonary disease) Depression DJD (degenerative joint disease) Failed total left knee replacement Fibromyalgia GERD (gastroesophageal reflux disease) Herniated disc History of migraine Hyperlipidemia Hypertension Impaired vision Incontinence Mixed sleep apnea Morbid obesity with BMI of 40.0-44.9, adult Nocturnal hypoxemia Numbness [place] on CPAP Pain 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 Postmenopausal Spinal stenosis of lumbar region with radiculopathy Weakness Surgical History (Last Updated 05/23/23 @ 15:20 by Tamika Braxton RN) History of arthroplasty of left knee (08/02/17) History of cholecystectomy History of hernia repair History of hysterectomy History of lateral meniscus repair of left knee History of lumbar fusion (04/26/23) History of lumbar spinal fusion (12/14/20) History of neck surgery (~2003) History of open reduction and internal fixation (ORIF) procedure (06/06/17) History of surgery (05/18/18) Hx of fusion of cervical spine S/P epidural steroid injection (11/10/20) Occupational Therapy Inpatient Evaluation/Re-Eval M1 PT/OT-IP Prior Functional Status Start: 05/25/23 11:06 Freq: NEEDED Status: Active Protocol: Document 05/25/23 10:15 [facility] (Rec: 05/25/23 11:24 [facility] [id number]) Medical Review Prior Functional Status Communication Independent Mobility and Gait Pt use of FWW or at times use of surfaces to move for short distances. Per pt her son has to assist her to get out of bed at times. Activities of Daily Living and IADL's Pt has assist for medications and showering needs at home. Pt's son does all the IADL needs. Social History Household Members children Living Arrangements Apartment/Condo Number of Stairs To Enter/Railing? 2 flights of steps with narrow bilateral rails. Home Environment Standard Height Toilet,Tub/ Shower Home Equipment Front Wheel Walker,Straight Cane,Button And Buckle Maker,Sock Aid,Grab Bars In Shower M2 OT-IP Current Condition Start: 05/25/23 11:06 Freq: Status: Active Protocol: Document 05/25/23 10:15 [facility] (Rec: 05/25/23 11:24 [facility] [id number]) Occupational Therapy Current Condition Current Condition Evaluation Date 05/25/23 Treatment Diagnosis I and D lumbar wound Diagnosis Onset Date 05/24/23 Post Operative Precautions Lumbar Precautions Log Roll,No Twisting,Limit Bending,Lifting Restriction of 10 lbs,Gait Belt above Incisional Area M3 OT- IP Subjective and Pain Start: 05/25/23 11:06 Freq: Status: Active Protocol: Document 05/25/23 10:15 [facility] (Rec: 05/25/23 11:24 [facility] [id number]) OT- Subjective Occupational Therapy Visit Type Type Initial Evaluation Visit Start Time 10:15 Visit Stop Time 10:38 Total Visit Minutes 23 Occupational Therapy Visit Comments Patient Comments Pt agreed to get up to do grooming and oral care needs. Patient/Caregiver Goals To go home OT Pain Assessment Pain When Pain Assessed At Rest Pain Present Pain Present Pain Reported Location Back Intensity 5 Scale Used Numeric (0 - 10) M4 OT- IP ADL's Start: 05/25/23 11:06 Freq: Status: Active Protocol: Document 05/25/23 10:15 [facility] (Rec: 05/25/23 11:24 [facility] [id number]) OT [id number] General Evaluation Self-Feeding Ability Independent OT ADL-Grooming General Evaluation Grooming Ability Independent Areas Needing Assistance Retrieving/Set-up of Grooming Items OT ADL-Oral Care General Eval Oral Care Ability Independent Areas of Assistance Retrieving/Set-Up of Items OT ADL-Dressing Comments OT Dressing Comments Pt has all LB dressing equipment at home able to do on her own and her son is able to assist if needed. OT ADL-Toileting Comments OT Toileting Comments Pt not having to go and states has already been up to use the toilet. Still suggest pt to get a BSC for increased ease and use of toilet paper aid for completeness. Pt states uses briefs at home. OT ADL-Bathing Comments OT Bathing Comments Not performed. M5 OT- IP IADL's Start: 05/25/23 11:06 Freq: Status: Active Protocol: Document 05/25/23 10:15 [facility] (Rec: 05/25/23 11:24 [facility] [id number]) OT-Instrumental Activities of Daily Living Deficits IADL Deficits Identified Deficits Home Safety Awareness Awareness of Need for Assistance at Home Good Awareness Ability to Problem Solve Emergency Able to Problem Solve Situations Medication Management Medication Management Caregiver Provides Supervision Money Management Money Management Caregiver Provides Supervision Meal Preparation Meal Preparation Caregiver Provides Assist Cheese Sprayer Cheese Sprayer Caregiver Provides Assist M6 OT- IP Functional Cognition Start: 05/25/23 11:06 Freq: Status: Active Protocol: Document 05/25/23 10:15 [facility] (Rec: 05/25/23 11:24 [facility] [id number]) Cognitive Factors Limiting Selfcare Function Cognitive Ability Level of Alertness Alert Patient Orientation Name,Age,Birthday,Month,Date, Year,Day of Week,Place, Situation Attention Span Ability Capable of Focused Attention, Capable of Sustained Attention Ability to Follow Commands Able to Follow One Step Commands Memory Description Short Term Impaired Safety Awareness Underestimates Need for Assistance Cognitive Comments Cognitive Assessment Comments Pt able to recall all her back precautions however needing cue to follow as pt tends to sit into long sitting and told to stop and do her log rolling. Pt also needing cues to use the FWW at all times for safety. OT- Vision and Hearing OT- Hearing Assessment OT- Hearing Assessment WFL M7 OT- IP Mobility and Balance Start: 05/25/23 11:06 Freq: Status: Active Protocol: Document 05/25/23 10:15 [facility] (Rec: 05/25/23 11:24 [facility] [id number]) OT- Bed Mobility Assessment Supine to Sit Supine to Sit Assist Standby Assistance Sit to Supine Sit to Supine Assist Standby Assistance Scooting Scooting to Edge of Bed Standby Assistance Scooting Up and Down in Bed Standby Assistance OT-Transfer Assessment Sit to and From Stand Sit to and from Stand Standby Assistance Transfers Transfer Ability Standby Assistance Technique Transfer Destination Bed,Chair Transfer Technique Stand Step Pivot Devices Transfer Assistive Devices Gait Belt,Front Wheeled Walker Comments Mobility Comments Pt tends to want to come up via long sitting or pt states her son assist to pull her up out of bed. Suggested pt get a bed rail, and also educated pt that her son can hold the FWW in place so that she can grab it when log rolling and making it much easy to get up and follow her back precautions. OT- Balance Assessment Sitting Balance and Reactions Static Sitting Balance Ability Normal Dynamic Sitting Balance Ability Good Standing Balance and Reactions Static Standing Balance Ability Good Dynamic Standing Balance Ability Good M9 OT- IP Assessment and Plan Start: 05/25/23 11:06 Freq: Status: Active Protocol: Document 05/25/23 10:15 [facility] (Rec: 05/25/23 11:24 [facility] [id number]) OT Summary Assessment and Plan Potential Rehabilitation Potential Excellent Analytic Complexity at Evaluation Low Summary OT Impairments Pain,Strength,Balance, Functional Mobility,Dressing, Toileting,Bathing Progress Towards Goals Progressing Toward Goals Assessment Summary Pt low complexity and main barriers are steps, pt needing reminders to incorporate her back precautions, pt to be mindful not to get her dressing wet while showering- best to get a HHSP, and cover the dressing while showering. Pt to go home when medically stable and her son to assist. Goals Dressing Goal Independent,Button And Buckle Maker,Sock Aid Toileting Goal Independent Bathing Goal Standby Assistance Toilet Transfer Goal Independent Shower Transfer Goal Independent Days to Meet Goals 2 Frequency of Treatment Frequency Of Treatment Once a Day Treatment Plan OT Treatment Plan ADL Training,Functional Cognition Training,Functional Mobility,Patient/Family Education,Discharge Planning Discharge Recommendations OT Discharge Recommendations Home with Assistance Home Equipment Needs hand held shower spray, shower chair, BSC, toilet paper aid
--- NOTE | 2023-05-25 11:55 | PT.IIE ---
Current Diagnoses Infection following a procedure, other surgical site, initial encounter (05/24/23) Surgery Performed Operation Date: 05/24/23 14:45 Actual Procedures p Incision and Drainage Wound/Spine - Tracey Gaytan MD Surgical History (Last Updated 05/23/23 @ 15:20 by Tamika Braxton RN) History of arthroplasty of left knee (08/02/17) History of cholecystectomy History of hernia repair History of hysterectomy History of lateral meniscus repair of left knee History of lumbar fusion (04/26/23) History of lumbar spinal fusion (12/14/20) History of neck surgery (~2003) History of open reduction and internal fixation (ORIF) procedure (06/06/17) History of surgery (05/18/18) Hx of fusion of cervical spine S/P epidural steroid injection (11/10/20) Medical History (Last Updated 05/23/23 @ 15:21 by Tamika Braxton RN) Anxiety Arthritis Bipolar disorder Chronic pain COPD (chronic obstructive pulmonary disease) Depression DJD (degenerative joint disease) Failed total left knee replacement Fibromyalgia GERD (gastroesophageal reflux disease) Herniated disc History of migraine Hyperlipidemia Hypertension Impaired vision Incontinence Mixed sleep apnea Morbid obesity with BMI of 40.0-44.9, adult Nocturnal hypoxemia Numbness [place] on CPAP Pain 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 Per pt her son has to asisst her to get out of bed at times. Activities of Daily Living and IADL's Pt has assist for medications and showering needs at home. Pt's son does all the IADL needs. Social History Household Members children Living Arrangements Apartment/Condo Number of Stairs To Enter/Railing? 1 flight of steps with narrow bilateral rails. Home Environment Standard Height Toilet,Tub/ Shower Home Equipment Front Wheel Walker,Straight Cane,Piano Tuner,Sock Aid,Grab Bars In Shower Employment Status Retired M2 PT-IP Current Condition Start: 05/25/23 08:32 Freq: NEEDED Status: Active Protocol: Document 05/25/23 11:20 MB (Rec: 05/25/23 11:55 MB [id number]) Physical Therapy Current Condition Current Condition Evaluation Date 05/25/23 Treatment Diagnosis Debridement of infected surgical area post-op lumbar fusion 3 weeks Onset Date 05/24/23 M3 PT-IP Subjective Start: 05/25/23 08:32 Freq: NEEDED Status: Active Protocol: Document 05/25/23 11:20 MB (Rec: 05/25/23 11:55 MB [id number]) Subjective Physical Therapy Visit Type Type Initial Evaluation Visit Start Time 11:20 Visit Stop Time 11:40 Total Visit Minutes 20 Number of DRAINMAN Visits 0 Physical Therapy Visit Comments Patient Comments I'm good. I'm ready to go. Patient Goals To go home today Therapy Pain Assessment Pain When Pain Assessed At Rest Pain Present Pain Present Pain Reported Location Back Intensity 1 Scale Used Desire (Faces) Description Acute Pain Management Techniques Distraction M4 PT-IP Mobility and Gait Start: 05/25/23 08:32 Freq: NEEDED Status: Active Protocol: Document 05/25/23 11:20 MB (Rec: 05/25/23 11:55 MB [id number]) PT-Bed Mobility Assessment Rolling Type of Rolling Log Rolling,Roll to Left Level of Assist Independent,Standby Assistance Supine to Sit Supine to Sit Independent Sit to Supine Sit to Supine Independent Scooting Scooting to Edge of Bed Independent PT-Transfer Assessment Sit to and From Stand Sit to and from Stand Independent Equipment Transfer Assistive Device Gait Belt,Front Wheeled Walker Orthotic/Prosthetic Devices or Brace: No Comments Mobility Comments Pt initially performing long sitting to supine and not sitting to side lying and cues for log rolling technique and then she performs with I. She recalls 3/3 back precautions from surgery. Gait Assessment Gait Gait Assistance Required: Independent,Standby Assistance Distance (Feet) 100 Able to Maintain Weight Bearing Status Yes During Gait Assistive Devices Assistive Device Gait Belt,Front Wheeled Walker Orthotic/Prosthetic Devices or Brace: No Gait Deviations General Gait Pattern Antalgic Comments Gait Comments Pt mobilizes well today and her gait is a little slow in verito and with wide HINA. She gait trains first distance with SBA and RW and progresses to mod I with RW: 100', 200' today. Stair Climbing Assessment Evaluation Level of Assist On Stairs Independent Devices Stair Climbing Assistive Devices Left Railing,Right Railing Technique/Endurance Stair Climbing Direction Ascend and Descend Stair Climbing Technique Step Over Step,Step to Step Number of Steps Climbed 3 Query Text: Stair Climbing Set # Repetitions (reps) 3 Comments Stair Climbing Comments Pt alternates between step over step and step to gait with stair training today PT-Balance Assessment Sitting Balance and Reactions Static Sitting Balance Ability Good Dynamic Sitting Balance Ability Good Standing Balance and Reactions Static Standing Balance Ability Good Dynamic Standing Balance Ability Good Device Used RW M5 PT-IP Objective Assessments Start: 05/25/23 08:32 Freq: NEEDED Status: Active Protocol: Document 05/25/23 11:20 MB (Rec: 05/25/23 11:55 MB [id number]) Orientation Orientation/Cognition Level of Alertness Alert Orientation Name,Age,Birthday,Month,Date, Year,Day of Week,Place, Situation Language Function Ability No Deficits Noted Safety Awareness Understands Safety Issues Memory Description No Deficits Noted Gross Range of Motion Upper Extremity ROM Impairments Defer to OT Lower Extremity ROM Assessment Within Functional Limits Strength Lower Extremity Strength Assessment Within Functional Limits Coordination Assessment Gross Coordination Gross Coordination WNL Sensation Assessment Sensation Gross Sensation WNL Muscle Tone Muscle Tone WNL Yes M6 PT-IP Treatment Start: 05/25/23 08:32 Freq: NEEDED Status: Active Protocol: Document 05/25/23 11:20 MB (Rec: 05/25/23 11:55 MB [id number]) Physical Therapy Treatment Education Education Provided Precautions,Safety M7 PT-IP Assessment and Plan Start: 05/25/23 08:32 Freq: NEEDED Status: Active Protocol: Document 05/25/23 11:20 MB (Rec: 05/25/23 11:55 MB [id number]) PT Summary Assessment and Plan Potential Rehabilitation Potential Excellent Status of Condition at Evaluation Stable Summary Impairments Pain Progress Towards Goals Safe For Discharge Assessment Summary Pt is a pleasant 58 y/o female who has good understanding of back precautions from her surgery 3 weeks ago. She requires reminder for log rolling technique to get into bed and then demonstrates log rolling technique I to the left to get OOB. Pt gait trains with SBA to mod I with RW and ascends and descends 3 steps x3 trials with both rails to prepare for flight of steps to get into the house. Pt is doing well and will d/c home with her son's assistance . She has HHPT currently and is interested in transitioning to OPPT. Frequency of Treatment Frequency Of Treatment Discharge Precautions Lumbar Precautions Log Roll,No Twisting,Limit Bending,Lifting Restriction of 10 lbs,Gait Belt above Incisional Area Weight Bearing Status Weight Bearing Status Weight Bear as Tolerated Recommendations To Nursing Amount of Assist Needed Standby Assistance Discharge Recommendations PT Discharge Recommendations Home with Assistance, Outpatient PT Transportation Needs at Discharge Private Vehicle
--- NOTE | 2023-05-25 11:56 | CM.DANOTE ---
Initial DCP Assessment Note Reviewed EMR for medical status and anticipated d/c needs. Met with pt at bedside to introduce self and role. Pt found to be alert, oriented, expressing ready for home d/c scheduled for today. Payor: [facility] ELANA Ramos. Pt is a 58-year old F admitted due to increased pain/wound infection following her lumbar surgery performed on 04/26/23. Surgical I-D completed and wound vac placed. Wound vac was removed today, RN will f/u with d/c instructions for OP woundcare and Ortho f/u. No further d/c needs are identified at this time. Discharge Planning/Care Management CM Discharge Assessment Start: 05/25/23 11:46 Freq: Status: Active Protocol: Document 05/25/23 11:46 DPL (Rec: 05/25/23 11:56 DPL [id number]) Discharge Planning Assessment Assigned Land Commissioner YOANA Brito Advance Directives? No Advance Directives on File No History Provided By Patient,Medical Record Has Patient been admitted in last 30 Yes days? Comment Ortho surgery 04/26/23 Prior Living Arrangements Apartment/Condo Household Members children Type of transporation used prior to Drives own vehicle admit Independent with ADL's Yes Is patient alert and oriented? Yes Caregiver for Another No Community Services used prior to Wound Care admission: Comment Has one at home to use post surg Patient/Family Preference OP PT Therapy Comment Pt will f/u with OP PT after f /u with Dr. Gaytan, pending his recommendations. Barriers to Discharge No Comment will likely need Medicaid taxi at d/c Discharge Plan Home Transportation Arrangement Pt is driving herself home. Referrals Initiated None needed Additional Comment None needed. Review Status In Process Please Provide Date Initial DC 05/25/23 Assessment Was Performed Pre-Anesthesia Assessment Start: 05/23/23 15:13 Freq: Status: Complete Protocol: Document 05/23/23 15:13 CAB (Rec: 05/23/23 15:22 CAB [id number]) Pre-Anesthesia Assessment Patient Information Reviewed Via Chart Review Primary Care Provider Philippe Seen Specialist in Last 12 Months Yes Specialist Seen Emergency,Orthopedist, Clinical Project Assistant Primary Language Ivorian Preferred Language Ivorian Ground Hand Required No Height 160.02 cm Weight 97.522 kg Body Mass Index (BMI) 38.0 Hearing Ability Normal Visual Impairment Partially Limited Visual Assist Glasses Dentition Type Full- Upper & Lower Barriers to Learning None Other Aids Yes: CPAP Hx Anesthesia Reactions No: No issues with anesthesia, states it's difficult to control pain post-op Hx Family Anesthesia Reaction No Hx Malignant Hyperthermia No Hx Blood Transfusions No Hx Blood Transfusion Reaction No Anesthesia Review Requested No Corporate Safety Director No alcohol intake never Smoking Status Former smoker Tobacco type cigarettes how long ago did patient quit smoking Quit 04/17/21 Pain Present Pain Reported Musculoskeletal Symptoms Back Pain,Difficulty Walking History of Falling (Recent or History of No ) Patient is completely paralyzed or No completely immobile Prosthesis or Orthotic Device Front Wheel Walker Is patient on oxygen? Yes: 2L02 Does patient have CHUN/SOB No Hx Sleep Apnea Yes CPAP/BIPAP use prescribed and used routinely Currently Taking a Beta Duglas No Can You Climb a Flight of Stairs Without Yes: Occasional SOB w/stairs, SOB especially when carrying something Hx Chest Pain No Hx SOB No Hx Syncope or Dizziness No Anti-Coagulant Therapy No Has a Water Softener Servicer No Cardiac Testing No Hx Pacemaker/ICD No Pacemaker Rep Required? No Cardiac Clearance Received Not Applicable Diet Type At Home Lactose Intolerant Dysphagia No Gastrointestinal Symptoms Diarrhea Chronic UTI No Bladder Pattern Frequency,Urgency Hx Urinary Self Catheterization No Diabetes No Patient No Lactating No Hx Drug Resistant Organism No Presence of External or Internal Medical Yes: Left knee, neck, lumbar, Devices nose piercing Received a COVID vaccine? Yes Received all doses? Yes Marital Status Single Lives With children Current Living Arrangements Apartment/Condo Number of Floors (Floors) Two Floors Support System Child/Children Patient Discharge Plan Description Return Home Do You Have Any Spiritual Beliefs That No May Affect Your HC Choices? Do You Have Any Cultural Practices That No May Affect Your HC Choices? Emergency Contact Name Amilcar Iraheta Emergency Contact Advance Directives? No Advance Directives on File No Power of Banking Management Consulting Manager No Stop Bang Assessment Do you often feel tired, fatigued or Yes sleepy during the daytime Has anyone ever observed you stop Yes breathing while sleeping? Do you have, or are you being treated Yes for, high blood pressure Is your BMI more than 35 kg/m2 Yes Age over 50 No Estimated neck circumference greater Yes than 40cm or 16in Gender male No Result Negative
--- NOTE | 2023-05-25 13:05 | PC.NURSE ---
Day shift: This RN removed hemovac drain and IV per LEONIDAS Ruiz's orders prior to discharge. RN Thierno Simmons did discharge paperwork. All questions answered. Pt stated understanding. PCT Eric escorted patient to patient's vehicle via wheelchair.
--- NOTE | 2023-05-25 16:52 | P.DS_ITS ---
History of Present Illness History of Present Illness Date Patient Seen: 05/25/23 Chief complaint: OPB Narrative: Patient is seen this morning in follow up status post I&D. Patient states her pain is mild. No fever or chills. No nausea or vomiting. Discharge Providers Provider Discharge Date: 05/25/23 Primary care physician: Doctor Ramesh MD Consults: 05/24/23 19:06 Consult to Occupational Therapy Evaluate & Treat Comment: Physician Instructions: Evaluate and treat Consult to Physical Therapy Evaluate & Treat Comment: Physician Instructions: Evaluate and Treat Discharge provider: Delano Ruiz PA-C Summary Hospital Course Discharge Diagnosis: Lumbar wound seroma and infection Hospital Course: 1. Lumbar wound irrigation and debridement of skin, fascia and muscle 2. Primary wound closure Same procedure as scheduled: Yes Indications: Ms. Iraheta is 3 weeks post lumbar fusion surgery. She has been doing well until 5 days ago. She has increased swelling, pain to her right side incision. She went to ER and had bed side I&D at ER and was instructed for f/u with me. Patient was seen yesterday and was found to have right sided wound induration with small amount of purulent wound drainage at where the ER performed the I&D. Patient has no systemic symptoms with no fevers or chills. Surgeon: Tracey Gaytan [employer] Specialist: Kanika Petty Click Yes if Unassisted: No Anesthesia Type: General Operative Notes Closure Type: primary Specimen(s): none sent Estimated Blood Loss (mL): 10 Blood products transfused: none Patient admitted to the hospital for the above-mentioned procedure. Patient underwent lumbar wound irrigation debridement of skin, fascia and muscle May 24, 2023. Patient back in her room recovering well as in stable condition. Keep dressing clean and dry. Mobilize with physical therapy. Patient will start Bactrim DS b.i.d. for 2 weeks. Follow up in clinic in 2 weeks. Limit bending, twisting, lifting. Patient discharged home today in stable condition. Cultures still pending and we will monitor for final results. Exam Vital Signs (past 8 hours): Oxygen Delivery Method Room Air Oxygen Flow Rate 0 Narrative Exam Narrative: Pleasant female in no apparent distress sitting comfortably in bedside chair. Dressing is clean, dry and intact. The wound VAC is in place with 25 cc total output over 24 hours serosanguineous fluid. Neurovascular status is intact bilateral lower extremities. Const General: cooperative and comfortable Nutritional Appearance: well nourished and obese (39.3) Orientation: alert Resp Effort & Inspection: normal respiratory effort and able to speak in complete sentences Objective Labs Labs: [facility] CLIA ID [id number] [address] [place] [id number] RUN DATE: 05/25/23 Specimen Inquiry PAGE 1 RUN TIME: 1655 Name: Mitch Iraheta Age/Sex: 58/F Attend Dr: Tracey Gaytan MD Unit#: [id number] : 1965Location: OR Re05/24/23 Disch: Status: DEP SDC SPEC #: [id number] VJ: 05/24/23 STATUS: RES REQ #: [id number] SPDESC: RECD: 05/24/[address]: Tracey Gaytan MD SOURCE: Miscellane ENTR: 05/24/[address]: Ramesh,Doctor FAX TO: ORDERED: BODY FLUID Cx COMMENTS: Comment wound culture lumbar Procedure Result Verified Site Gram Stain Final 05/25/23315 No Organism Seen No organisms seen White blood cells No WBC seen Aerobic Culture Pending Anaerobic Culture Pending [facility] Medical History (Updated 05/23/23 @ 15:21 by Tamika Braxton RN) COPD (chronic obstructive pulmonary disease) Spinal stenosis of lumbar region with radiculopathy GERD (gastroesophageal reflux disease) MADISON on CPAP Anxiety Herniated disc DJD (degenerative joint disease) Weakness Pain Arthritis Incontinence Postmenopausal Hypertension Hyperlipidemia Impaired vision Numbness History of migraine Fibromyalgia Bipolar disorder Depression Chronic pain Morbid obesity with BMI of 40.0-44.9, adult Nocturnal hypoxemia Mixed sleep apnea 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 Surgical History (Updated 05/23/23 @ 15:20 by Tamika Braxton RN) History of lumbar fusion (04/26/23) History of lumbar spinal fusion (12/14/20) History of surgery (05/18/18) History of arthroplasty of left knee (08/02/17) Hx of fusion of cervical spine S/P epidural steroid injection (11/10/20) History of neck surgery (~2003) History of open reduction and internal fixation (ORIF) procedure (06/06/17) History of lateral meniscus repair of left knee History of hysterectomy History of hernia repair History of cholecystectomy Social History household members: children Smoking Status: Former smoker alcohol intake: never Discharge Assessment & Plan Assessment and Plan Assessment: Patient progressing as expected Plan of Treatment: Multimodal pain management Keep dressing clean and dry Limit bending, twisting, lifting Bactrim DS bid x2 weeks Monitor for final culture results Discharge home today in stable condition Discharge Plan Discharge Plan Patient Disposition: Home Discharge orders & Medications Discharge Orders: Discharge (Order); Ordered 05/25/23 Ordered By: Delano Ruiz Prescriptions: New oxycodone 5 mg Tablet 10 mg PO Q3H PRN (Reason: Pain, Moderate (4-6)) Qty: 30 0RF hydroxyzine pamoate 25 mg Capsule 25 mg PO Q4HR PRN (Reason: Nausea And Vomiting) Qty: 20 0RF sulfamethoxazole-trimethoprim [Bactrim DS] 800-160 mg tablet 1 tab PO BID Qty: 14 0RF Continued albuterol sulfate [Ventolin HFA] 90 MCG/PUFF HFA aerosol inhaler 2 puff INH PRN PRN (Reason: Wheezing) Qty: 0 risperidone [Risperdal] 2 MG tablet 2 mg PO DIRECTED Qty: 0 Patient Comments: 2mg qam, 4mg qpm duloxetine 60 MG capsule,delayed release(DR/EC) 60 mg PO BID Qty: 0 valacyclovir [Valtrex] 500 mg Tablet 500 mg PO BID PRN (Reason: Breakouts) famotidine 20 mg Tablet 20 mg PO BID ropinirole 0.25 mg Tablet 0.5 mg PO BEDTIME mirabegron 25 mg Tablet Extended Release 24 Hr 50 mg PO BID lamotrigine 150 mg tablet 150 mg PO DAILY trazodone 100 mg Tablet 100 mg PO BEDTIME simvastatin 40 mg Tablet 40 mg PO BEDTIME cholecalciferol (vitamin D3) [Vitamin D3] 5,000 unit Tablet 5,000 unit PO DAILY aspirin 81 mg Capsule 81 mg PO DAILY Atrovent HFA 17 mcg/actuation HFA aerosol inhaler 1 puff inhalation DAILY acetaminophen 325 mg Tablet 650 mg PO Q6H PRN (Reason: Fever/Mild Pain (1-3)) Qty: 60 0RF methocarbamol 500 mg tablet 500 mg PO 3XD meloxicam 15 mg tablet 15 mg PO DAILY cyclobenzaprine 5 mg tablet 5 mg PO 4XD PRN (Reason: Pain (Scale Score 4-6)) Spiriva Respimat 2.5 mcg/actuation mist 2 puff inhalation DAILY Discontinued hydroxyzine pamoate 25 mg Capsule 25 mg PO BEDTIME oxycodone 10 mg Tablet 10 mg PO Q3H PRN (Reason: Pain, Severe (7-10)) Qty: 40 0RF Follow up/Referrals: Tracey Gaytan MD [Physician] - As previously scheduled (Follow up with Dr Gaytan on 06/13/2023 @ 10:50 am at [facility] in [place].) Doctor Chandler MD [Primary Care Provider] - Diet/Activity/Treatments Diet: Diet as Tolerated Activity: Limit bending, twisting, lifting Other treatments: Start Bactrim DS 1 tablet twice daily Skin/Wound/Dressing Care Report to your healthcare provider any signs of infection, such as:: chills, fever, night sweats, increased pain, unusual drainage and unusual redness Dressing: Keep dressing clean and dry Visit Report/Discharge Packet Instructions: DI for Prescription Opioid Use, DI for Incision and Drainage Stand Alone Forms: Patient Portal/API, Surgery Discharge Discharge Data Primary Care Provider: Doctor Ramesh Attending Provider: Tracey Gaytan
== END 2023-05-25 13:08 | disposition home or self-care (01) ==
LOC: OR 13:31 → AC 13:31
PROVIDERS: Referring Provider Orthopaedic Surgery Orthopaedic Surgery of the Spine; Visit Provider Orthopaedic Surgery Orthopaedic Surgery of the Spine
PROC: (CPT 10180; principal; 2023-05-24 14:45)
DX: T81.49XA Infection following a procedure, other surgical site, initial encounter (principal); M96.842 Postprocedural seroma of a musculoskeletal structure following a musculoskeletal system procedure; Z98.1 Arthrodesis status
CPT/HCPCS: 12031; 87070; 87075; 87077; 87147; 87186; 87205; 97162; 97165; 97530; A9270; J0696; J1100; J1170; J2405; J2704; J3010; J3410

== ENCOUNTER 2023-06-28 14:32 | Day surgery (SDC) | payer MEDICARE, MEDICAID, SELFPAY ==
[2023-05-24 19:39] VITALS: BMI 39.3
[2023-06-28] VITALS (10 sets, daily range): BP systolic 120–167; BP diastolic 45–89; PULSE 77–94; RESP 12–18; TEMP 36.2–37.1; O2SAT 92–98; BMI 39.3
[2023-06-28] MEDS: LACTATED RINGERS 1,000 ML 42 ML IV (15:30)
[2023-06-28] MEDS: ALBUTEROL 2.5 MG/3 ML NEB (ADULT) INH (17:02)
[2023-06-28] MEDS: VANCOMYCIN 1,000 MG/200 ML PIGGYBACK 200 MG IV (18:00)
[2023-06-28] MEDS: VANCOMYCIN 1,000 MG VIAL 1000 MG TOP (18:00)
[2023-06-28] MEDS: BUPIVACAINE 0.25% (PF) VIAL 30 ML INJ (18:08)
[2023-06-28] MEDS: SODIUM CHLORIDE IRRIG SOLUTION 3,000 ML, GENTAMICIN 240 MG IRR (18:08)
--- NOTE | 2023-06-28 18:26 | PM.OP.1 ---
Operative Date/Time/Diagnoses Date of procedure: 06/28/23 Time of procedure: 17:30 Pre-op diagnosis: 1. Lumbar wound infection Post-op diagnosis: same Procedure & Clinicians Procedure: 1. Lumbar wound I&D of skin and subcutaneous tissue and fascia Same procedure as scheduled: Yes Indications: Ms. Iraheta is 2 months s/p L4-S1 TLIF. She developed a large seroma on the right side which underwent a I&D 1 month ago. Culture was taken and it grew MRSA. Patient was treated with oral antibiotics. Patient returned yesterday with increased swelling and pain to her right side lumbar wound. Aspiration in clinic yielded cloudy bloody fluid concerning for infection. Patient was scheduled urgently for repeat I&D today. Surgeon: Tracey Gaytan [employer] Database Coordinator: Kanika Petty Click Yes if Unassisted: No Anesthesia Type: General Operative Notes Closure Type: primary Specimen(s): none sent Estimated Blood Loss (mL): 20 Blood products transfused: none Procedure in detail: Patient was seen in the preoperative area. Risks and benefits of the surgery was discussed with the patient. Informed consent was obtained from the patient and placed in the chart. Surgical site was marked. Patient was taken to the operative room. General anesthesia was administered. Prophylactic antibiotic was given to the patient less than 30 min before the incision was made. Patient was placed into a prone position on the Pedrito table. Patient's back was then prepped and draped in the sterile fashion. Time-out was performed at this time. Patient's right-sided incision was inspected. There is a 2x4 inches area of induration. A linear incision was made and copies amount of purulent fluid was expressed from the wound after the injection was made, totaling 30 cc. The wound infection was found to be isolated to the subcutaneous layer. The space occupied by the abscess was smaller than the prior irrigation and debridement. Apparently the cavity where the abscess was located the size of a golf ball instead of a baseball. The deep fascial layer is intact with no exposed hardware. At this time using a 10 blade as well as a Watson, unhealthy appearing tissue was excised including skin subcutaneous tissue and muscle fascia. After excision all debridement was completed the wound was irrigated copiously with 3 L of sterile normal saline with gentamicin. After the irrigation and debridement was completed the wound was then re-examined. Healthy-appearing tissue was visible on all surfaces of the wound. 1 g of vancomycin powder was placed into the wound prior to wound closure after the irrigation and debridement was finished. #1 Nylon suture was used to close the wound in vertical mattress fashion in interrupted fashion. Yane then was placed between the nylon vertical mattress sutures. The wound was closed without any difficulty and without added stress the skin. At this time a sterile dressing was applied the patient's wound/incision. Patient was then woken up from anesthesia and transferred recovery room stable condition. There were no complications. The Operation could not have been safely performed without compromising the technical result or length of the procedure, without the assistance of a skilled surgical scrub technician. The surgical scrub technician was medically necessary for proper positioning, retraction and manipulation of instruments, proper exposure, surgical preparation, and manipulation of tissue. Patient will be discharged to home once criteria is met. F/u in 3 weeks for wound check. Complications: none Post-operative Condition: stable Disposition: PACU Plan for aftercare: Discharge to home
[2023-06-28] MEDS: OXYCODONE IR 5 MG TABLET PO ×2 (18:43→20:58)
[2023-06-28] MEDS: hydrOXYzine pamoate 25 MG CAPSULE PO (18:43)
[2023-06-28] MEDS: ACETAMINOPHEN 325 MG TABLET 650 MG PO ×2 (18:43→20:59)
[2023-06-28] MEDS: ROPINIROLE 0.25 MG TABLET 0.5 MG PO (20:58)
[2023-06-28] MEDS: ATORVASTATIN 20 MG TABLET PO (20:58)
[2023-06-28] MEDS: TRAZODONE 50 MG TABLET 100 MG PO (20:58)
[2023-06-28] MEDS: FAMOTIDINE 20 MG TABLET PO (20:59)
[2023-06-28] MEDS: DOCUSATE 100 MG CAPSULE PO (20:59)
[2023-06-28] MEDS: DULOXETINE 30 MG CAPSULE 60 MG PO (20:59)
[2023-06-28] MEDS: LACTATED RINGERS 1,000 ML 125 ML IV (21:40)
[2023-06-28] MEDS: SENNOSIDES 8.6 MG TABLET 17.2 MG PO (21:40)
[2023-06-28] MEDS: HYDROMORPHONE 0.5 MG INJ IV (22:27)
[2023-06-28] MEDS: IPRATROPIUM 0.5 MG/2.5 ML NEB INH (23:25)
--- NOTE | 2023-06-29 00:02 | PC.ADMIT ---
[facility] Admission Note: Patient admitted to AC unit from ED at 19:10. Alert and oriented x 4, able to make needs known. Oriented to room and call light. Had a sandwich, water, and juice, tolerated well. LR running at 125/hr. CMS intact. Bed in low and locked position, bed alarm on and call light within reach. The patient,Mitch Iraheta,58 y/o, was given written information regarding hospital policies, unit procedures and contact persons. Patient's smoking status: Former smoker. Vital Signs - 8 hr 06/28/23 18:30 06/28/23 18:35 06/28/23 18:44 Temperature 97.8 F 97.8 F 97.6 F Pulse Rate 87 86 84 Respiratory Rate 12 12 13 Blood Pressure 167/73 H 159/66 H 125/65 Pulse Oximetry 95 93 93 Oxygen Delivery Method Room Air Room Air Room Air Oxygen Flow Rate 06/28/23 18:54 06/28/23 19:15 06/28/23 19:45 Temperature 97.5 F L 98.7 F Pulse Rate 80 78 79 Respiratory Rate 12 16 18 Blood Pressure 162/69 H 148/61 H 120/72 Pulse Oximetry 94 93 92 Oxygen Delivery Method Room Air Oxygen Flow Rate 0 0 06/28/23 20:15 06/28/23 21:15 06/28/23 23:26 Temperature 98.1 F Pulse Rate 84 77 Respiratory Rate 16 16 Blood Pressure 120/72 150/45 H Pulse Oximetry 93 92 Oxygen Delivery Method Room Air Oxygen Flow Rate 0 0
[2023-06-29] MEDS: OXYCODONE IR 5 MG TABLET 10 MG PO ×3 (01:17→11:35)
[2023-06-29] MEDS: hydrOXYzine pamoate 25 MG CAPSULE PO (01:18)
[2023-06-29 02:15] VITALS: BP 121/58; PULSE 69; RESP 18; TEMP 36.4; O2SAT 97
[2023-06-29] MEDS: HYDROMORPHONE 0.5 MG INJ IV (04:51)
[2023-06-29] MEDS: VANCOMYCIN 1,000 MG/200 ML PIGGYBACK 200 MG IV (05:23)
[2023-06-29 07:43] VITALS: PULSE 77; RESP 18; O2SAT 94
[2023-06-29] MEDS: IPRATROPIUM 0.5 MG/2.5 ML NEB INH ×2 (07:43→11:31)
[2023-06-29] MEDS: lamoTRIgine 100 MG TABLET 150 MG PO (08:16)
[2023-06-29] MEDS: DULOXETINE 30 MG CAPSULE 60 MG PO (08:16)
[2023-06-29] MEDS: OXYBUTYNIN 5 MG ER TAB 10 MG PO (08:16)
[2023-06-29] MEDS: FAMOTIDINE 20 MG TABLET PO (08:17)
[2023-06-29] MEDS: CHOLECALCIFEROL (VITAMIN D3) 5,000 UNIT TABLET 5000 UNIT PO (08:24)
[2023-06-29] MEDS: MELOXICAM 7.5 MG TABLET 15 MG PO (08:24)
[2023-06-29 08:36] VITALS: BP 145/82; PULSE 72; RESP 19; TEMP 35.6; O2SAT 95
--- NOTE | 2023-06-29 08:54 | OT.IPNOTE ---
Pt here for I and D lumbar on 06/28/23 and previous had I and D 05/24/23, and S/P L4-5 TLIF and L4-S1 PSF on 04/26/23. Pt already has all OT equipment needs and her son able to assist with IADL needs. Therefore discharge OT eval orders.
--- NOTE | 2023-06-29 09:03 | PT.IIE ---
Current Diagnoses Infection following a procedure, other surgical site, initial encounter (06/28/23) Surgery Performed Operation Date: 06/28/23 16:15 Actual Procedures p Irrigation and Debridement of Lumbar Wound - Tracey Gaytan MD Surgical History (Last Updated 05/23/23 @ 15:20 by Tamika Braxton RN) History of arthroplasty of left knee (08/02/17) History of cholecystectomy History of hernia repair History of hysterectomy History of lateral meniscus repair of left knee History of lumbar fusion (04/26/23) History of lumbar spinal fusion (12/14/20) History of neck surgery (~2003) History of open reduction and internal fixation (ORIF) procedure (06/06/17) History of surgery (05/18/18) Hx of fusion of cervical spine S/P epidural steroid injection (11/10/20) Medical History (Last Updated 05/23/23 @ 15:21 by Tamika Braxton RN) Anxiety Arthritis Bipolar disorder Chronic pain COPD (chronic obstructive pulmonary disease) Depression DJD (degenerative joint disease) Failed total left knee replacement Fibromyalgia GERD (gastroesophageal reflux disease) Herniated disc History of migraine Hyperlipidemia Hypertension Impaired vision Incontinence Mixed sleep apnea Morbid obesity with BMI of 40.0-44.9, adult Nocturnal hypoxemia Numbness MADISON on CPAP Pain 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 Mobility and Gait Pt reports she was no longer using FWW prior to this surgery. Activities of Daily Living and IADL's IND with ADLs and light IADLs, but requires assistance from son for heavier IADLs. Social History Household Members children Living Arrangements Apartment/Condo Number of Floors (Floors) One Floor Number of Stairs To Enter/Railing? 2 flights of stairs with bilateral hand rails to get to her apartment Home Environment Standard Height Toilet,Tub/ Shower,Tub/Shower Doors Home Equipment Front Wheel Walker,Straight Cane,Verify Rep,Sock Aid,Grab Bars In Shower Additional Social History Comment Pt underwent lumbar TLIF in late April, then I and D in May. She no longer has spinal precautions and was attending outpatient PT. M2 PT-IP Current Condition Start: 06/29/23 13:03 Freq: NEEDED Status: Active Protocol: Document 06/29/23 13:04 AB (Rec: 06/29/23 13:17 AB [id number]) Physical Therapy Current Condition Current Condition Evaluation Date 06/29/23 Treatment Diagnosis s/p lumbar wound I&D Onset Date 06/28/23 M3 PT-IP Subjective Start: 06/29/23 13:03 Freq: NEEDED Status: Active Protocol: Document 06/29/23 13:04 AB (Rec: 06/29/23 13:17 AB [id number]) Subjective Physical Therapy Visit Type Type Initial Evaluation Visit Start Time 08:51 Visit Stop Time 09:03 Total Visit Minutes 12 Notes Home set up gathered from medical history during chart review and was confirmed by pt . Physical Therapy Visit Comments Patient Comments Pt presents semi supine in bed and is agreeable to PT eval. Therapy Pain Assessment Pain When Pain Assessed During Mobility Pain Present Pain Present Denied Pain M4 PT-IP Mobility and Gait Start: 06/29/23 13:03 Freq: NEEDED Status: Active Protocol: Document 06/29/23 13:04 AB (Rec: 06/29/23 13:17 AB [id number]) PT-Bed Mobility Assessment Rolling Level of Assist Independent Supine to Sit Supine to Sit Independent Sit to Supine Sit to Supine Independent Scooting Scooting to Edge of Bed Independent PT-Transfer Assessment Sit to and From Stand Sit to and from Stand Independent Equipment Transfer Assistive Device Gait Belt Transfers Transfer Destination Bed Transfer Technique ambulated Transfer Ability Level of Assist Independent Comments Mobility Comments The pt presents in bed and is agreeable to PT eval. The pt performs all bed mobility, STS ambulation and stairs with independence. All mobility is uneventful and pt denies pain with all tasks. She is able to ambulate 430ft without AD and no significant gait deviations. She ascend/ descends 2 flights of stairs with 1 hand rail independently using step over step technique. At end of session, pt returned to bed independently, with all needs met and call light within reach. PT consulted with RN regarding pt being independent in room, and RN is agreeable. Pt was educated about being independent in room and calling for assistance as needed. Gait Assessment Gait Gait Assistance Required: Independent Distance (Feet) 430 Able to Maintain Weight Bearing Status Yes During Gait Assistive Devices Assistive Device Gait Belt Gait Deviations General Gait Pattern Within Normal Limits Comments Gait Comments See mobility comments. Stair Climbing Assessment Evaluation Level of Assist On Stairs Independent Devices Stair Climbing Assistive Devices Left Railing Technique/Endurance Stair Climbing Direction Ascend and Descend Stair Climbing Technique Step Over Step Number of Steps Climbed 10 Query Text: Stair Climbing Set # Repetitions (reps) 2 Comments Stair Climbing Comments See mobility comments. PT-Balance Assessment Sitting Balance and Reactions Static Sitting Balance Ability Normal Dynamic Sitting Balance Ability Normal Standing Balance and Reactions Static Standing Balance Ability Normal Dynamic Standing Balance Ability Normal Device Used none M5 PT-IP Objective Assessments Start: 06/29/23 13:03 Freq: NEEDED Status: Active Protocol: Document 06/29/23 13:04 AB (Rec: 06/29/23 13:17 AB [id number]) Orientation Orientation/Cognition Level of Alertness Alert Orientation Name,Age,Birthday,Month,Date, Year,Day of Week,Place, Situation Language Function Ability No Deficits Noted Safety Awareness Understands Safety Issues Memory Description No Deficits Noted Gross Range of Motion Upper Extremity ROM Assessment Within Functional Limits Lower Extremity ROM Assessment Within Functional Limits Strength Upper Extremity Strength Assessment Within Functional Limits Lower Extremity Strength Assessment Within Functional Limits M6 PT-IP Treatment Start: 06/29/23 13:03 Freq: NEEDED Status: Active Protocol: Document 06/29/23 13:04 AB (Rec: 06/29/23 13:17 AB [id number]) Physical Therapy Treatment Education Education Provided Weight Bearing Status,Safety Brace Education Patient M7 PT-IP Assessment and Plan Start: 06/29/23 13:03 Freq: NEEDED Status: Active Protocol: Document 06/29/23 13:04 AB (Rec: 06/29/23 13:17 AB [id number]) PT Summary Assessment and Plan Potential Rehabilitation Potential Excellent Status of Condition at Evaluation Stable Summary Impairments Pain Progress Towards Goals Safe For Discharge Assessment Summary Mitch Iraheta is a 58 year old female patient who is s/p lumbar wound I&D performed on 06/28/23, with a history of lumbar TLIF and prior lumbar I &D. Today's PT evaluation revealed the pt is independent with all functional mobility including ambulation and stairs, and is safe to be discharged home and continuing outpatient PT. Based on her high level of function, the pt is being discharged from PT at this time. Goals Bed Mobility Goal Independent Transfer Goal Independent Gait Goal Independent Gait Distance 500 Other Goals Pt to ambulate 600ft independently to show improving tolerance to activity. Days to Meet Goals 5 Frequency of Treatment Frequency Of Treatment Discharge Treatment Plan Physical Therapy Treatment Plan Bed Mobility Training,Transfer Training,Gait Training, Therapeutic Exercise,Balance Retraining,Post Op Education, Discharge Planning,Hot or Cold Pack,Neuromuscular Re-ed, Coordination Retraining,Manual Therapy Weight Bearing Status Weight Bearing Status Weight Bear as Tolerated Recommendations To Nursing Amount of Assist Needed Independent Discharge Recommendations PT Discharge Recommendations Home with Assistance, Outpatient PT Transportation Needs at Discharge Private Vehicle
[2023-06-29 09:46] LABS: Estimated Glomerular Filt Rate > 60 mL/min (>60)
--- NOTE | 2023-06-29 10:27 | CM.DANOTE ---
Reviewed EMR and team rounds for pt's medical status and anticipated home d/c needs. Met with pt at bedside to introduce self and role. Pt was found to be alert, upright in bed, expressing feeling ready to return home later this am. Payor: [facility] Attending: Dr. Gaytan Pt is a 58 year-old F placed in [facility] bed post-I&D of a recurrent seroma/abcess following her lumbar surgery initially completed on 04/26/23. She had the first I&D on 05/24/23 when her surgical wound first became infected. Pt resides in her own home with her son. She already has all of the DME that she will need at home due to her last I&D done last month. Son is able to assist her with any ADL's and IADL's during her recovery process. No further DCP needs are identified at this time. Anticipate home d/c after lunch today, son will transport. Discharge Planning/Care Management Advanced directive, confirm from FAMILY Start: 06/28/23 21:22 Freq: Q24H Status: Active Protocol: Document 06/28/23 21:22 (Rec: 06/29/23 00:35 [id number]) Advance Directive, confirm on record Time 21:00 Person contacted patient Copy received No CM Discharge Assessment Start: 06/29/23 10:23 Freq: Status: Active Protocol: Document 06/29/23 10:23 DPL (Rec: 06/29/23 10:27 DPL [id number]) Discharge Planning Assessment Assigned [employer] YOANA Brito Advance Directives? No Advance Directives on File No History Provided By Patient,Medical Record Has Patient been admitted in last 30 No days? Comment Last here 05/24/23 for I-D of lumbar seroma/abcess post- surgery on 04/26/23. Prior Living Arrangements House Comment Lives with son Household Members children Type of transporation used prior to Drives own vehicle admit Independent with ADL's Yes Is patient alert and oriented? Yes Needs Assistance With Home Chores / Shopping Comment Has one at home to use post surg Patient/Family Preference OP PT Therapy Comment Pt's son will transport pt home. Discharge Plan Home Referrals Initiated None needed Additional Comment None needed. Whiteboard Updated in Patient Room with Yes name and ext. # of Supervisor [employer] Review Status In Process Please Provide Date Initial DC 06/29/23 Assessment Was Performed
--- NOTE | 2023-06-29 11:21 | PM.DS.1 ---
History of Present Illness History of Present Illness Chief complaint: OPB Narrative: SUBJECTIVE: 58-year-old female seen postoperative day 1. Underwent incision and debridement of right sided incision. Admitted postoperatively. Pain well-controlled. No change in baseline neuroexam OBJECTIVE: Lumbar Spine: Dressing clean dry and intact with mild serosanguinous strikethrough Motor RIGHT: L2=hip flexion: 5 L3=knee extension: 5 L4=ankle dorsiflexion: 5 L5=great toe extension: 5 S1-ankle plantarflexion: 5 LEFT: L2=hip flexion: 5 L3=knee extension: 5 L4=ankle dorsiflexion: 5 L5=great toe extension: 5 S1-ankle plantarflexion: 5 Sensation RIGHT: Normal light touch sensation L2-S1 LEFT: Normal light touch sensation L2-S1 ASSESSMENT: 58-year-old female postoperative day 1 from debridement of spine wound PLAN: ?Receiving vancomycin while inpatient. A prescription for clindamycin 300 mg every 6 hours has been sent to her pharmacy previously as well as a prescription for oxycodone 5 mg ? Pain well-controlled ? Plan for discharge home later today Discharge Providers Provider Discharge Date: 06/29/23 Primary care physician: Doctor Ramesh MD Consults: 06/28/23 19:06 Consult to Occupational Therapy Evaluate & Treat Comment: Physician Instructions: Evaluate and treat Consult to Physical Therapy Evaluate & Treat Comment: Physician Instructions: Evaluate and Treat Discharge provider: Fer Jacob MD Exam Vital Signs (past 8 hours): - 06/29/23 07:43 06/29/23 08:36 Temperature 96.1 F L Pulse Rate 77 72 Respiratory Rate 18 19 Blood Pressure 145/82 H Pulse Oximetry 94 95 Oxygen Delivery Method Room Air Oxygen Flow Rate 0 0 Fraction of Inspired Oxygen 21 Fraction of Inspired Oxygen 21 SaO2/FiO2 Ratio 447 Oxygen Delivery Method Room Air Oxygen Flow Rate 0 Objective Labs 06/29/23 09:25 Labs: Laboratory Results - last 24 hr 06/29/23 09:25 Creatinine 0.66 Estimated GFR > 60 PFSH Medical History (Updated 06/28/23 @ 18:23 by Kanika Petty PA-C) COPD (chronic obstructive pulmonary disease) Spinal stenosis of lumbar region with radiculopathy GERD (gastroesophageal reflux disease) [place] on CPAP Anxiety Herniated disc DJD (degenerative joint disease) Weakness Pain Arthritis Incontinence Postmenopausal Hypertension Hyperlipidemia Impaired vision Numbness History of migraine Fibromyalgia Bipolar disorder Depression Chronic pain Morbid obesity with BMI of 40.0-44.9, adult Nocturnal hypoxemia Mixed sleep apnea 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 Surgical History (Updated 05/23/23 @ 15:20 by Tamika Braxton RN) History of lumbar fusion (04/26/23) History of lumbar spinal fusion (12/14/20) History of surgery (05/18/18) History of arthroplasty of left knee (08/02/17) Hx of fusion of cervical spine S/P epidural steroid injection (11/10/20) History of neck surgery (~2003) History of open reduction and internal fixation (ORIF) procedure (06/06/17) History of lateral meniscus repair of left knee History of hysterectomy History of hernia repair History of cholecystectomy Social History household members: children Smoking Status: Former smoker alcohol intake: never Discharge Plan Discharge Plan Patient Disposition: Home Discharge orders & Medications Discharge Orders: Discharge (Order); Ordered 06/29/23 Ordered By: Fer Jacob Prescriptions: New oxycodone 5 mg tablet 5 mg PO Q4H PRN (Reason: pain) Qty: 20 0RF clindamycin HCl 300 mg capsule 300 mg PO Q6H Qty: 40 0RF Continued albuterol sulfate [Ventolin HFA] 90 MCG/PUFF HFA aerosol inhaler 2 puff INH PRN PRN (Reason: Wheezing) Qty: 0 risperidone [Risperdal] 2 MG tablet 2 mg PO DIRECTED Qty: 0 Patient Comments: 2mg qam, 4mg qpm duloxetine 60 MG capsule,delayed release(DR/EC) 60 mg PO BID Qty: 0 valacyclovir [Valtrex] 500 mg Tablet 500 mg PO BID PRN (Reason: Breakouts) famotidine 20 mg Tablet 20 mg PO BID ropinirole 0.25 mg Tablet 0.5 mg PO BEDTIME Myrbetriq 25 mg Tablet Extended Release 24 Hr 50 mg PO BID lamotrigine 150 mg tablet 150 mg PO DAILY trazodone 100 mg Tablet 100 mg PO BEDTIME simvastatin 40 mg Tablet 40 mg PO BEDTIME cholecalciferol (vitamin D3) [Vitamin D3] 5,000 unit Tablet 5,000 unit PO DAILY aspirin 81 mg Capsule 81 mg PO DAILY Atrovent HFA 17 mcg/actuation HFA aerosol inhaler 1 puff inhalation DAILY acetaminophen 325 mg Tablet 650 mg PO Q6H PRN (Reason: Fever/Mild Pain (1-3)) Qty: 60 0RF meloxicam 15 mg tablet 15 mg PO DAILY Spiriva Respimat 2.5 mcg/actuation mist 2 puff inhalation DAILY oxycodone 5 mg Tablet 10 mg PO Q3H PRN (Reason: Pain, Moderate (4-6)) Qty: 30 0RF hydroxyzine pamoate 25 mg Capsule 25 mg PO Q4HR PRN (Reason: Nausea And Vomiting) Qty: 20 0RF Follow up/Referrals: Miscellaneous,Doctor, MD [Primary Care Provider] - Skin/Wound/Dressing Care Dressing: Soft dressing with Xeroform 4 x 4 and overlying abdominal pad Other wound treatment: Maintain dressing Visit Report/Discharge Packet Stand Alone Forms: Patient Portal/API Discharge Data Primary Care Provider: RameshDoctor Attending Provider: Tracey Gaytan
[2023-06-29 11:31] VITALS: PULSE 72; RESP 18; O2SAT 95
--- NOTE | 2023-06-29 11:45 | PC.NURSE ---
Pt amb in hallway w/o incidence. Med x 2 for discomfort w/ good relief. MD in to see, orders for D/C placed. HL D/C'd intact, Pt tranjsportation here after lunch.
--- NOTE | 2023-06-29 14:26 | PC.NURSE ---
Pt ride arrived. Pt escorted by staff via W/C to waiting vehicle D/C in stable post op status.
== END 2023-06-29 14:00 | disposition home or self-care (01) ==
LOC: OR 14:34 → AC 17:07
PROVIDERS: Referring Provider Orthopaedic Surgery Orthopaedic Surgery of the Spine; Visit Provider Orthopaedic Surgery Orthopaedic Surgery of the Spine
PROC: (CPT 10180; principal; 2023-06-28 16:15)
DX: T81.89XA Other complications of procedures, not elsewhere classified, initial encounter (principal); B95.62 Methicillin resistant Staphylococcus aureus infection as the cause of diseases classified elsewhere; Z98.1 Arthrodesis status; J44.9 Chronic obstructive pulmonary disease, unspecified; G47.33 Obstructive sleep apnea (adult) (pediatric); E66.01 Morbid (severe) obesity due to excess calories; K21.9 Gastro-esophageal reflux disease without esophagitis; I10 Essential (primary) hypertension; Z68.41 Body mass index [BMI] 40.0-44.9, adult
CPT/HCPCS: 11043; 36415; 82565; 87070; 87075; 87077; 87147; 87186; 87205; 94640; 97161; A9270; J1100; J1170; J2405; J2704; J3010; J7613